=== PATIENT | female | born 1965 | race Caucasian/White ===

== ENCOUNTER → 2020-07-08 13:46 | Outpatient (BNVA) | payer OTHER, SELFPAY | PROVIDERS: PCP Internal Medicine; Referring Provider Internal Medicine; Visit Provider Internal Medicine | DX: R00.2 Palpitations (principal); I49.3 Ventricular premature depolarization | CPT/HCPCS: 99202 ==

== ENCOUNTER → 2020-07-10 09:19 | Outpatient (REF) | payer OTHER, SELFPAY ==
--- NOTE | 2020-07-10 09:40 | ECG_ITS ---
Hook-up date: 2020-07-10 10:44:00 Duration: 27:16:00 Test Indications: VENT. PREMATURE DEPOLARIZATION Medications: 99364 QRS complexes * Ventricular ectopics which represent % of total QRS comp. 1 Supraventricular ectopics which represent <1 % of total QRS comp. * Paced QRS complexs which represent % of total QRS comp. VENTRICULAR ECTOPY * Isolated * Bigeminal Cycles * Couplets * Runs * Beats in Runs * Beats LONGEST at * BPM at :: -- * Beats FASTEST at * BPM at :: -- SUPRAVENTRICULAR ECTOPY 1 Isolated 0 Couplets 0 Runs 0 Beats in Runs * Beats LONGEST at * BPM at :: -- * Beats FASTEST at * BPM at :: -- HEART RATES 59 MIN at 03:16:46 2020-07-11 86 AVG 133 MAX at 11:10:07 2020-07-10 LONGEST RR 1.0800 secs at 02:33:26 2020-07-11 S-T LEVELS Channel 1 - 128 mm at 10:44:00 2020-07-10 - 128 mm at 10:44:00 2020-07-10 Channel 2 - 128 mm at 10:44:00 2020-07-10 - 128 mm at 10:44:00 2020-07-10 Channel 3 - 128 mm at 03:00:31 -- - 128 mm at 03:00:31 Basic rhythm Normal sinus rhythm No long pause or profound bradycardia No PVCs noted Patient reported symptoms correlated with NSR Referred By: Luigi Waite Overread By: PIERO LU MD
--- NOTE | 2020-07-10 09:40 | CA_ITS ---
Transthoracic Echocardiogram Patient (Last, First, Middle): Katia Snow M Gender: Female Date of : 1965 Age: 54 Procedure Date: 07/10/2020 Procedure Type: Transthoracic Echocardiogram Location: OP Height: 154.94 cm Weight: 62.6 kg BSA: 1.61 m2 Heart Rate: bpm BP: 118 / 60 mmHg Business Services Tech: Referring MD: Luigi Waite MD Symptoms: R00.2 - Palpitations Study Quality: Fair ECG Rhythm: Sinus Conclusions: - The left ventricular systolic function is normal. The visually estimated ejection fraction is between 55-60%. - No obvious valvular pathology seen on this study. Findings Left Ventricle Normal left ventricular cavity size. There is normal left ventricular wall thickness. The left ventricular systolic function is normal. The visually estimated ejection fraction is between 55-60%. There is no evidence of regional wall motion abnormalities. E/E prime ratio is <8, consistent with normal filling pressures. Evidence suggests grade I (mild) diastolic dysfunction. Right Ventricle Normal right ventricular cavity size and systolic function. Atria The left atrium is normal in size. The right atrium is normal in size. Aortic Valve The aortic valve was not well visualized. The aortic valve structure and function is likely normal. There is no aortic valve stenosis. There is trace (trivial) aortic valve regurgitation. Mitral Valve The mitral valve appears normal. There is trace mitral valve regurgitation. There is no mitral valve stenosis. Pulmonic Valve The pulmonic valve was not well visualized. Tricuspid Valve Normal tricuspid valve structure. There is trace tricuspid valve regurgitation. The pulmonary artery systolic pressure is normal. Great Vessels The aortic annulus, sinuses of valsalva, and asc aorta are normal in size. Venous The inferior vena cava is normal in size and collapses greater than 50% with inspiration. Pericardium/Pleural There is no evidence of pericardial effusion. Prior Study Comparison No prior study available for comparison. Recommendations, Care & Conclusions No obvious valvular pathology seen on this study. Measurements 2D Linear Measurements IVSd: 0.92 0.6-0.9/0.6-1.0 cm LVIDd: 3.83 3.9-5.3/4.2-5.9 cm LVIDd Index: 2.38 2.4-3.2/2.2-3.1 cm/m2 LVIDs: 2.66 2.0-3.6 cm LVPWd: 0.97 0.7-1.1 cm Ao Root: 3.00 2.1-3.5 cm LA Diam: 2.80 2.7-3.8/3.0-4.0 cm LAIDs Index: 1.74 1.5-2.3 cm/m2 LV Mass: 136.00 67-162/88-224 g LV Mass Index: 84.47 43-95/49-115 g/m2 LVOT Diam: 2.20 3.0+(-)1.3 cm Mitral Valve MV Pk E: 0.51 MV PK A: 0.75 MV Decel Time: 106.00 E/A: 0.70 E'Lateral: 9.09 E'Medial: 7.54 E/E' Med: 6.80 E/E' Lat: 5.60 PHT: 31.00 MVA PHT: 7.10 Decel Bowie: 4.82 Aortic Valve AoV Pk Jimi: 1.00 AoV Mn Jimi: 0.71 AoV VTI: 0.20 AoV Pk Grad: 4.00 Aov Mn Grad: 2.00 DOROTHY Cont.VTI: 3.17 LVOT LVOT Pk Jimi: 0.78 LVOT Mn Jimi: 0.53 LVOT VTI: 0.17 LVOT Pk Grad: 2.00 LVOT Mn Grad: 1.00 LVOT Diam: 2.20 LVOT Area: 3.80 Diastolic Function MV Pk E: 0.51 MV Pk A: 0.75 E/A: 0.70 E'Medial: 7.54 E/E' Med: 6.80 E' Laterial: 9.09 E/E' Lat: 5.60 Tricuspid Valve TR Pk Jimi: 1.61 TR Pk Grad: 10.00 Great Vessels Aorta Ao Root-2D: 3.00 2.0-3.7 cm Ao Asc: 3.20 2.1-3.4 cm Pulmonary Valve PV Pk Jimi: 0.71 Peak PV Grad: 2.00 Updated in Other Vendor System with Status of Final Luigi Waite MD electronically signed on 07/12/2020 1:01:14 PM with status of Final
== END ==
LOC: HO.CARD 09:19
PROVIDERS: Visit Provider Nurse Practitioner Family
DX: I49.3 Ventricular premature depolarization (principal); R00.2 Palpitations
CPT/HCPCS: 93226; 93306

== ENCOUNTER 2020-08-12 11:13 | Outpatient (REF) | payer OTHER, SELFPAY | END 2020-08-12 11:14 | disposition home or self-care (01) | LOC: HO.LAB 11:13 | PROVIDERS: Visit Provider Hospitalist | DX: Z13.89 Encounter for screening for other disorder (principal) ==

== ENCOUNTER 2020-08-19 09:27 | Outpatient (REF) | payer OTHER, SELFPAY | END 2020-08-19 09:28 | disposition home or self-care (01) | LOC: HO.HMGCLDS 09:27 | PROVIDERS: PCP Internal Medicine; Visit Provider Hospitalist | DX: Z20.828 Contact with and (suspected) exposure to other viral communicable diseases (principal) | CPT/HCPCS: U0003 ==

== ENCOUNTER 2020-12-27 11:01 | Outpatient (REF) | payer OTHER, SELFPAY ==
[2020-12-27 14:39] LABS: Alanine Aminotransferase 14 U/L (0-31); Albumin Level 4.3 g/dL (3.5-5.0); Alkaline Phosphatase 91 U/L (39-117); Anion Gap 14 (12-20); Aspartate Amino Transferase 16 U/L (5-31); Bilirubin Total 1.3 mg/dL (0.0-1.0); Blood Urea Nitrogen 21 mg/dL (9-16); Carbon Dioxide 25 mmol/L (22-29); Chloride 108 mmol/L (96-108); Estimated Glomerular Filt Rate > 60; Glucose Random 97 mg/dL (60-115); Potassium 4.2 mmol/L (3.3-5.1); Sodium 143 mmol/L (135-145); Total Protein 6.6 g/dL (6.5-8.0)
== END 2020-12-27 11:02 | disposition home or self-care (01) ==
LOC: HO.HMGCLDS 11:01
PROVIDERS: Hospitalist; PCP Internal Medicine; Visit Provider Internal Medicine
DX: R00.2 Palpitations (principal)
CPT/HCPCS: 36415; 80053; 83735

== ENCOUNTER → 2020-12-30 08:51 | Outpatient (BNVA) | payer OTHER, SELFPAY | PROVIDERS: PCP Internal Medicine; Referring Provider Internal Medicine; Visit Provider Internal Medicine | DX: I49.3 Ventricular premature depolarization (principal); R00.2 Palpitations | CPT/HCPCS: 99212 ==

== ENCOUNTER → 2021-02-12 11:07 | Outpatient (BNVA) | payer OTHER, SELFPAY | PROVIDERS: PCP Internal Medicine; Referring Provider Internal Medicine; Visit Provider Internal Medicine | DX: I49.3 Ventricular premature depolarization (principal); E87.6 Hypokalemia; R00.2 Palpitations | CPT/HCPCS: 99212 ==

== ENCOUNTER → 2021-07-21 12:54 | Outpatient (BNVA) | payer OTHER, SELFPAY | PROVIDERS: PCP Internal Medicine; Referring Provider Internal Medicine; Visit Provider Internal Medicine | DX: I49.3 Ventricular premature depolarization (principal); R00.2 Palpitations | CPT/HCPCS: 99212 ==

== ENCOUNTER 2021-09-09 09:17 | Outpatient (REF) | payer OTHER, SELFPAY ==
[2021-09-09 09:39] LABS: Binax Internal Control QC Valid; Binax Now Covid-19 Ag Positive (Negative)
== END 2021-09-09 09:18 | disposition home or self-care (01) ==
LOC: HO.HMGCLDS 09:17
PROVIDERS: PCP Internal Medicine; Visit Provider Internal Medicine
DX: Z13.89 Encounter for screening for other disorder (principal)

== ENCOUNTER 2022-05-20 10:23 | Emergency (ER) | payer OTHER, SELFPAY ==
--- NOTE | ~2022-05-20 | XR_ITS ---
EXAMINATION: XR CHEST CLINICAL INFORMATION: Chest pain. COMPARISON: None TECHNIQUE: 2 views of the chest were obtained. FINDINGS: No significant abnormality is noted involving the heart, lungs, mediastinum, bony thorax or soft tissues. XR/XR chest 2V IMPRESSION: No acute cardiopulmonary process.
[2022-05-20 11:40] VITALS: BP 131/83; PULSE 90; RESP 18; TEMP 36.1; O2SAT 100; BMI 25.4
--- NOTE | 2022-05-20 11:42 | ECG_ITS ---
Test Reason : chest tightness Blood Pressure : / mmHG Vent. Rate : 086 BPM Atrial Rate : 086 BPM P-R Int : 162 ms QRS Dur : 084 ms QT Int : 350 ms P-R-T Axes : 066 033 022 degrees QTc Int : 418 ms Normal sinus rhythm Low voltage QRS Borderline ECG No previous ECGs available Referred By: Generic ED Physician Electronically Signed By:TAO MENDEZ
[2022-05-20 12:01] LABS: MANUAL DIFF FLAG NO
[2022-05-20 12:03] LABS: Basophils Percent Auto 0.4 % (0-2); Eosinophils Absolute Auto 0.1 X10*3/uL (0.0-0.4); Eosinophils Percent Auto 0.6 % (0-4); Hematocrit 45.3 % (37.0-47.0); Hemoglobin 15.3 g/dl (12.0-16.0); Imm Gran Abs Auto 0.01 X10*3/uL (0.00-0.03); Imm Gran Pct Auto 0.1 % (0.0-0.4); Lymphocytes Absolute Auto 1.9 X10*3/uL (1.2-4.9); Lymphocytes Percent Auto 24.1 % (20-40); Mean Corpuscular HGB Conc 33.8 g/dl (31.0-35.0); Mean Corpuscular Hemoglobin 28.8 pg (27.0-33.0); Mean Corpuscular Volume 85.3 fL (80.0-98.0); Mean Platelet Volume 9.8 fL (9.4-12.3); Monocytes Absolute Auto 0.4 X10*3/uL (0.1-1.2); Monocytes Percent Auto 4.4 % (2-11); Neutrophils Absolute Auto 5.6 x10*3/uL (2.0-8.3); Neutrophils Percent Auto 70.4 % (45-73); Platelet Count 174 X10*3/uL (160-400); Red Blood Count 5.31 X10*6/uL (4.20-5.50); Red Cell Distribution Width 11.9 % (11.0-16.0); White Blood Count 7.9 X10*3/uL (4.8-10.8)
[2022-05-20 12:22] LABS: Anion Gap 15 (12-20); Blood Urea Nitrogen 16 mg/dL (9-16); Calcium 9.6 mg/dL (8.4-10.2); Carbon Dioxide 27 mmol/L (22-29); Chloride 106 mmol/L (96-108); Creatinine Clr Calc Pharmacy 65.1; Estimated Glomerular Filt Rate > 60; Glucose Random 105 mg/dL (60-115); Potassium 4.9 mmol/L (3.3-5.1); Sodium 143 mmol/L (135-145)
[2022-05-20 12:29] LABS: Troponin-I High Sensitivity < 3.5 ng/L (<3.5-17.0)
== END 2022-05-20 23:09 | disposition left against medical advice (07) ==
PROVIDERS: Emergency Provider Emergency Medicine; PCP Internal Medicine
DX: R07.89 Other chest pain (principal)
CPT/HCPCS: 36415; 71046; 80048; 84484; 85025; 93005; 99283

== ENCOUNTER 2022-06-10 11:19 | Outpatient (REF) | payer OTHER, SELFPAY ==
[2022-06-10 13:51] LABS: MANUAL DIFF FLAG NO
[2022-06-10 13:55] LABS: Basophils Percent Auto 0.4 % (0-2); Eosinophils Percent Auto 0.4 % (0-4); Hematocrit 45.9 % (37.0-47.0); Hemoglobin 15.4 g/dl (12.0-16.0); Imm Gran Abs Auto 0.02 X10*3/uL (0.00-0.03); Imm Gran Pct Auto 0.2 % (0.0-0.4); Lymphocytes Percent Auto 23.7 % (20-40); Mean Corpuscular HGB Conc 33.6 g/dl (31.0-35.0); Mean Corpuscular Hemoglobin 28.2 pg (27.0-33.0); Mean Corpuscular Volume 84.1 fL (80.0-98.0); Mean Platelet Volume 10.5 fL (9.4-12.3); Monocytes Absolute Auto 0.4 X10*3/uL (0.1-1.2); Monocytes Percent Auto 4.3 % (2-11); Neutrophils Absolute Auto 6.1 x10*3/uL (2.0-8.3); Platelet Count 214 X10*3/uL (160-400); Red Blood Count 5.46 X10*6/uL (4.20-5.50); Red Cell Distribution Width 11.9 % (11.0-16.0); White Blood Count 8.6 X10*3/uL (4.8-10.8)
[2022-06-10 14:13] LABS: Anion Gap 14 (12-20); Blood Urea Nitrogen 16 mg/dL (9-16); Calcium 9.6 mg/dL (8.4-10.2); Carbon Dioxide 26 mmol/L (22-29); Chloride 106 mmol/L (96-108); Estimated Glomerular Filt Rate > 60; Glucose Random 107 mg/dL (60-115); Potassium 4.5 mmol/L (3.3-5.1); Sodium 141 mmol/L (135-145)
== END 2022-06-10 11:20 | disposition home or self-care (01) ==
LOC: HO.HMGCLDS 11:19
PROVIDERS: PCP Internal Medicine; Visit Provider Nurse Practitioner Family
DX: R25.1 Tremor, unspecified (principal)
CPT/HCPCS: 36415; 80048; 85025

== ENCOUNTER 2022-07-25 09:03 | Emergency (ER) | payer OTHER, SELFPAY ==
[2022-07-25 09:10] VITALS: BP 124/73; BP 128/88; PULSE 100; PULSE 102; RESP 18; TEMP 36.5; O2SAT 99; BMI 25.4
--- NOTE | 2022-07-25 10:49 | ECG_ITS ---
Test Reason : DEPRESSION Blood Pressure : / mmHG Vent. Rate : 086 BPM Atrial Rate : 086 BPM P-R Int : 160 ms QRS Dur : 084 ms QT Int : 346 ms P-R-T Axes : 067 010 013 degrees QTc Int : 414 ms Normal sinus rhythm Low voltage QRS Borderline ECG When compared with ECG of 20-MAY-2022 11:47, No significant change was found Referred By: Lenore Levine Electronically Signed By:Aram Gonzales
--- NOTE | 2022-07-25 10:50 | ED_ITS ---
HPI - General Adult General Chief complaint: General Medical Stated complaint: Anxiety/Depression Time Seen by Provider: 07/25/22 10:49 Source: patient and old records reviewed Mode of arrival: ambulatory Limitations: no limitations History of Present Illness HPI narrative: 56-year-old female with history panic attacks and anxiety, heart palpitations due to PVCs, who is not able to work due to severe anxiety and panic attacks, currently on FMLA until September who presents to the ER for ongoing stress and anxiety now with decreased p.o. intake and generalized weakness. She was last seen in the clinic on July 10, her FMLA per paperwork was filled out and plan was to try to get in with a psychiatrist. She has recent prescribed p.r.n. lorazepam but reports negative side effects. She states she has been tried on other medications but has had negative side effects as well. She has made multiple dietary modifications due to food allergies and intolerance is. She has been eating eggs and toast every morning and doing well with lunch and dinner as well. She is worse after eating lunch today she took a shower and afterwards felt generally weak and increased anxiety. She had tremors. She came to the ER for further evaluation. MD complaint: Anxiety, depression, weakness and decreased p.o. intake Onset (ago): week(s) Location: left, right, upper extremity and lower extremity Severity: moderate Pain Consistency: intermittent Relieving factors: none Exacerbating factors: movement Associated symptoms: loss of appetite, weakness and other (tremors, anxiety) Treatments prior to arrival: none Related Data Previous Rx's Medication Instructions Recorded aluminum-mag hydroxide-simethicone 10 ml PO TID PRN indigestion 7 06/15/22 400 mg-400 mg-40 mg/5 mL oral susp days #100 mL (Mylanta Maximum Strength) lorazepam 0.5 mg tablet 0.25 mg PO DAILY PRN anxiety 14 06/15/22 days #7 tabs Allergies Allergy/AdvReac Type Severity Reaction Status Date / Time codeine AdvReac Intermediate Nausea/Vomi Verified 07/25/22 09:09 ting prednisone AdvReac Intermediate diarrhea, Verified 07/25/22 09:09 ROTH bisquit Allergy Unknown sneeze Uncoded 07/10/22 14:59 mold Allergy Unknown unknown Uncoded 07/10/22 14:59 yeast Allergy Unknown unknown Uncoded 07/10/22 14:59 COUNTS INCLUDE 234 BEDS AT THE [facility] Past Medical History Medical History Allergies Foot pain, bilateral Sensorineural hearing loss Surgical History No pertinent past surgical history Family History Family History Father No problems noted. Mother No problems noted. Social History Social History Housing: Apartment Alcohol intake: never Patient Tobacco Use Status: Never used Tobacco e-Cigarette/Vaping Use: Never Used Second Hand Smoke Exposure: No Advance Directives: No Current occupational status: employed Cognitive needs: No Hearing needs: Yes Vision needs: Yes Physical Exam ED Vital Signs: Vital Signs - 24 hr 07/25/22 09:10 07/25/22 12:24 07/25/22 15:15 Temperature 97.7 F 97.9 F 98.9 F Pulse Rate 100 91 67 Respiratory Rate 18 18 17 Blood Pressure 124/73 107/62 109/87 Pulse Oximetry 99 100 99 Oxygen Delivery Method Room Air Room Air Room Air BMI result Body Mass Index 25.4 Appearance: Alert. Oriented X3. No acute distress. Eyes: Pupils equal, round and reactive to light. ENT: Pharynx normal. Neck: Normal inspection. Neck supple. CVS: Normal heart rate and rhythm. Pulses normal. Respiratory: No respiratory distress. Breath sounds normal. Abdomen: Soft and nontender. +BS x4 Skin: Skin warm and dry. Normal skin color. Normal skin turgor. No rashes. Extremities: No lower extremity edema. Neuro/psych: Oriented X 3. No motor deficit. No sensory deficit. CN II-XII intact. Makes eye contact, fixated on dietary ingestions. Intermittently tearf ul and anxious. Course Course Course Narrative: 56-year-old female with history of panic attacks and anxiety, multiple food allergies and intolerance is who presents to the ER for evaluation of worsening anxiety. Today after showering she felt generally weak and had tremors. She lost her appetite. Prior to today she has been eating 3 meals a day. She has an appointment with the psychiatrist on Wednesday for via phone. Will check her basic labs and have her evaluated by the care team/crisis team. she is not suicidal or homicidal however she reports her anxiety is debilitating her day-to-day life and she is not able to go to work or do day-to-day functions. Reevaluation(s) Reevaluation #1: Basic medical workup was unremarkable. Will place patient in physician observation at this time. Physician observation started at 12:30. Patient placed in physician observation because patient is awaiting N/CARE team evaluation for the possible need of inpatient psych admission. At the time observation was started patient's vital signs were stable. Patient is alert and oriented. Neuro exam is non-focal. CV: RRR and lungs are clear. Will continue to monitor. Reevaluation #2: Pt seen by CARE team. Not in crisis. Not interested in partial. Has an appointment with her psychiatrist on Wednesday. Comfortable with d/c home. Medical Decision Making Lab Data Result diagrams: 07/25/22 11:44 07/25/22 11:45 Labs: Lab Results 07/25/22 07/25/22 07/25/22 Range/Units 11:44 11:45 11:45 WBC 8.8 (4.8-10.8) X10*3/uL RBC 5.09 (4.20-5.50) X10*6/uL Hgb 14.7 (12.0-16.0) g/dl Hct 42.7 (37.0-47.0) % MCV 83.9 (80.0-98.0) fL MCH 28.9 (27.0-33.0) pg MCHC 34.4 (31.0-35.0) g/dl RDW 12.0 (11.0-16.0) % Plt Count 194 (160-400) X10*3/uL MPV 9.9 (9.4-12.3) fL Immature Gran % (Auto) 0.2 (0.0-0.4) % Neut % (Auto) 72.3 (45-73) % Lymph % (Auto) 21.7 (20-40) % Woods % (Auto) 5.2 (2-11) % Eos % (Auto) 0.3 (0-4) % Baso % (Auto) 0.3 (0-2) % Lymph # (Auto) 1.9 (1.2-4.9) X10*3/uL Woods # (Auto) 0.5 (0.1-1.2) X10*3/uL Eos # (Auto) 0.0 (0.0-0.4) X10*3/uL Baso # (Auto) 0.0 (0.0-0.2) X10*3/uL Abs Immat Gran (auto) 0.02 (0.00-0.03) X10*3/uL Absolute Neuts (auto) 6.3 (2.0-8.3) x10*3/uL Absolute Nucleated RBC 0.000 (0.0-0.012) X10*3/uL Nucleated RBC % (auto) 0.0 (0.0-0.2) /100WBC Sodium 137 (135-145) mmol/L Potassium 4.1 (3.3-5.1) mmol/L Chloride 106 (96-108) mmol/L Carbon Dioxide 26 (22-29) mmol/L Anion Gap 9 L (12-20) BUN 18 H (9-16) mg/dL Creatinine 0.75 (0.5-1.4) mg/dL Estim Creat Clear Calc 68.6 Estimated GFR > 60 Random Glucose 94 (60-115) mg/dL Calcium 9.1 (8.4-10.2) mg/dL Magnesium 2.1 (1.6-2.6) mg/dL Total Bilirubin 1.1 H (0.0-1.0) mg/dL Direct Bilirubin 0.3 (0.0-0.5) mg/dL AST 12 (5-31) U/L ALT 12 (0-31) U/L Alkaline Phosphatase 86 (39-117) U/L Total Protein 6.0 L (6.5-8.0) g/dL Albumin 4.0 (3.5-5.0) g/dL Ethyl Alcohol < 10 mg/dL COVID-19 (ARMANI) (Negative) COVID-19 Clin Com Influenza Type A (GERALD) Negative (Negative) Influenza Type B (GERALD) Negative (Negative) Influenza A & B Note See Note 07/25/22 Range/Units 11:45 WBC (4.8-10.8) X10*3/uL RBC (4.20-5.50) X10*6/uL Hgb (12.0-16.0) g/dl Hct (37.0-47.0) % MCV (80.0-98.0) fL MCH (27.0-33.0) pg MCHC (31.0-35.0) g/dl RDW (11.0-16.0) % Plt Count (160-400) X10*3/uL MPV (9.4-12.3) fL Immature Gran % (Auto) (0.0-0.4) % Neut % (Auto) (45-73) % Lymph % (Auto) (20-40) % Woods % (Auto) (2-11) % Eos % (Auto) (0-4) % Baso % (Auto) (0-2) % Lymph # (Auto) (1.2-4.9) X10*3/uL Woods # (Auto) (0.1-1.2) X10*3/uL Eos # (Auto) (0.0-0.4) X10*3/uL Baso # (Auto) (0.0-0.2) X10*3/uL Abs Immat Gran (auto) (0.00-0.03) X10*3/uL Absolute Neuts (auto) (2.0-8.3) x10*3/uL Absolute Nucleated RBC (0.0-0.012) X10*3/uL Nucleated RBC % (auto) (0.0-0.2) /100WBC Sodium (135-145) mmol/L Potassium (3.3-5.1) mmol/L Chloride (96-108) mmol/L Carbon Dioxide (22-29) mmol/L Anion Gap (12-20) BUN (9-16) mg/dL Creatinine (0.5-1.4) mg/dL Estim Creat Clear Calc Estimated GFR Random Glucose (60-115) mg/dL Calcium (8.4-10.2) mg/dL Magnesium (1.6-2.6) mg/dL Total Bilirubin (0.0-1.0) mg/dL Direct Bilirubin (0.0-0.5) mg/dL AST (5-31) U/L ALT (0-31) U/L Alkaline Phosphatase (39-117) U/L Total Protein (6.5-8.0) g/dL Albumin (3.5-5.0) g/dL Ethyl Alcohol mg/dL COVID-19 (ARMANI) Negative (Negative) COVID-19 Clin Com See Note Influenza Type A (GERALD) (Negative) Influenza Type B (GERALD) (Negative) Influenza A & B Note Discharge Plan Discharge Clinical Impression: Anxiety, generalized Patient Disposition: Still a Patient Instructions: Generalized Anxiety Disorder (ED) Additional Instructions: Your lab workup today was unremarkable. You tested negative for COVID and influenza. Recommend following up with your psychiatrist on Wednesday as scheduled. If you develop new or worsening symptoms call 911 or come back to the ER for further evaluation. Prescriptions: No Action alum-mag hydroxide-simeth [Mylanta Maximum Strength] 400-400-40 mg/5 mL suspension 10 ml PO TID PRN (Reason: indigestion) 7 Days Qty: 100 0RF lorazepam 0.5 mg tablet 0.25 mg PO DAILY PRN (Reason: anxiety) 14 Days Qty: 7 0RF
--- OUTSIDE RECORDS SUMMARY | 2022-07-25 11:02 | XMS_ITS | Continuity of Care Document ---
:1965 Author Organization [facility] Address [address] [place] [address]- Care Team Providers Name Role Phone Not on Staff, PCP Primary Care Physician Unavailable Encounter [facility] Date(s): 06/25/22 - 06/25/[address] [address]- Discharge Disposition: A-D/C Home Attending Physician: Izzy Lorenzana MD Admitting Physician: Izzy Lorenzana MD Referring Physician: Not on Staff, Referring MD Allergies, Adverse Reactions, Alerts Substance Reaction Severity Status codeine Active Results Radiology Reports Exam Date Time Procedure Performing Provider Status 06/25/22 8:30 AM Chest 2 Views Frontal and Lat Tiana Flowers; Auth (Verified) Notes:(Chest 2 Views Frontal and Lat) Reason For Exam: Chest Pain;Other:RESULT: Chest 2 Views Frontal and Lat Chest 2 Views Frontal and Lat HX OF PRESENT ILLNESS: pt awoke at 4 am with heart racing and sob. Chronic left sided cp alleviated with ibuprofen and ice; Reason: Chest pain COMPARISON: None. FINDINGS: LINES AND TUBES: None. LUNGS AND PLEURA: Clear lungs. Normal pulmonary vascularity. No pleural effusion. No pneumothorax. HEART, MEDIASTINUM AND LUCIUS: Heart is normal in size. Normal mediastinal and hilar contour. BONES AND SOFT TISSUES: No acute abnormality. IMPRESSION: No evidence of acute abnormality. WSN: [id number] Ordering Physician: Dejon Acosta Dictated By: Dominick Monroe MD Dictated Date/Time: 06/25/22 8:32 am Reviewed By: Dominick Monroe MD Signed By: Dominick Monroe MD Signed Date/Time: 06/25/22 8:32 am Transcribed By: ANA Transcribed Date/Time: 06/25/22 8:31 am Vital Signs Most recent to oldest 1 2 3 [Reference Range]: Oxygen Saturation [94-100 %] 100 % 99 % 100 % (06/25/22 2:13 PM) (06/25/22 12:43 PM) (06/25/22 11 :00 AM) Pulse Rate [55-90 bpm] 88 bpm 89 bpm 85 bpm (06/25/22 2:13 PM) (06/25/22 12:43 PM) (06/25/22 11 :00 AM) Blood Pressure [90-138/55-84 115/78 mm Hg 113/87 mm Hg 112 /83 mm Hg mm Hg] (06/25/22 2:13 PM) (06/25/22 12:43 PM) (06/25/22 11 :00 AM) Respiratory Rate [16-30 14 br/min 16 br/min 14 br/mi n br/min] *L* (06/25/22 12:43 PM) *L* (06/25/22 2:13 PM) (06/25/22 11:00 AM) Temperature [96.8-100.4 DegF] 98.0 DegF 97.8 DegF 98 .1 DegF (06/25/22 2:13 PM) (06/25/22 12:43 PM) (06/25/22 7: 50 AM) Mode of Delivery (Oxygen) Room air Room air Room a ir (06/25/22 2:13 PM) (06/25/22 12:43 PM) (06/25/22 11 :00 AM) Blood pressure sites Arm, left Arm, left Arm, left (06/25/22 2:13 PM) (06/25/22 12:43 PM) (06/25/22 11 :00 AM) Temperature Route Oral Oral Oral (06/25/22 2:13 PM) (06/25/22 12:43 PM) (06/25/22 7: 50 AM) Social History Social History Type Response Smoking Status Never (less than 100 in life time) entered on: 01/07/22 Sex Note [facility] , CIS S: TRANSCRIBE Dominick Monroe MD S: VERIFY Event Display: Result: Authored Date: [id number] Chest 2 Views Frontal and Lat HX OF PRESENT ILLNESS: pt awoke at 4 am with heart racing and sob. Chronic left sided cp alleviated with ibuprofen and ice; Reason: Chest pain COMPARISON: None. FINDINGS: LINES AND TUBES: None. LUNGS AND PLEURA: Clear lungs. Normal pulmonary vascularity. No pleural effusion. No pneumothorax. HEART, MEDIASTINUM AND LUCIUS: Heart is normal in size. Normal mediastinal and hilar contour. BONES AND SOFT TISSUES: No acute abnormality. IMPRESSION: No evidence of acute abnormality. WSN: [id number] Ordering Physician: Dejon Acosta Dictated By: Dominick Monroe MD Dictated Date/Time: 06/25/22 8:32 am Reviewed By: Dominick Monroe MD Signed By: Dominick Monroe MD Signed Date/Time: 06/25/22 8:32 am Transcribed By: ANA Transcribed Date/Time: 06/25/22 8:31 am Patient Care team information PersonnelName: Not on Staff, PCP
--- OUTSIDE RECORDS SUMMARY | 2022-07-25 11:02 | XMS_ITS | Continuity of Care Document ---
:1965 Author Organization [facility] Address [address] [place] [address]- Care Team Providers Name Role Phone Marcial Gimenez MD Primary Care Physician Encounter [facility] Date(s): 01/07/22 - 01/07/[address] [address]- Discharge Disposition: A-D/C Home Attending Physician: Yemi Stephenson MD Admitting Physician: Yemi Stephenson MD Referring Physician: Not on Staff, Referring MD Allergies, Adverse Reactions, Alerts Substance Reaction Severity Status codeine Active Vital Signs Most recent to oldest [Reference Range]: 1 Height 155 cm (01/07/22 12:50 PM) Weight 62.3 kg (01/07/22 12:50 PM) Oxygen Saturation [94-100 %] 100 % (01/07/22 12:50 PM) Pulse Rate [55-90 bpm] 98 bpm *H* (01/07/22 12:50 PM) Blood Pressure [90-138/55-84 mm Hg] 123/84 mm Hg (01/07/22 12:50 PM) Respiratory Rate [16-30 br/min] 18 br/min (01/07/22 12:50 PM) Temperature [96.8-100.4 DegF] 98.2 DegF (01/07/22 12:50 PM) Mode of Delivery (Oxygen) Room air (01/07/22 12:50 PM) Temperature Route Temporal (01/07/22 12:50 PM) Dry Weight 62.3 kg (01/07/22 12:50 PM) Weight Obtained Via Standing scale (01/07/22 12:50 PM) Dry Weight Obtained Via Standing scale (01/07/22 12:50 PM) Social History Social History Type Response Smoking Status Never (less than 100 in life time) entered on: 01/07/22 Sex
[2022-07-25 11:49] LABS: MANUAL DIFF FLAG NO
[2022-07-25 11:51] LABS: Basophils Percent Auto 0.3 % (0-2); Eosinophils Percent Auto 0.3 % (0-4); Hematocrit 42.7 % (37.0-47.0); Hemoglobin 14.7 g/dl (12.0-16.0); Imm Gran Abs Auto 0.02 X10*3/uL (0.00-0.03); Imm Gran Pct Auto 0.2 % (0.0-0.4); Lymphocytes Absolute Auto 1.9 X10*3/uL (1.2-4.9); Lymphocytes Percent Auto 21.7 % (20-40); Mean Corpuscular HGB Conc 34.4 g/dl (31.0-35.0); Mean Corpuscular Hemoglobin 28.9 pg (27.0-33.0); Mean Corpuscular Volume 83.9 fL (80.0-98.0); Mean Platelet Volume 9.9 fL (9.4-12.3); Monocytes Absolute Auto 0.5 X10*3/uL (0.1-1.2); Monocytes Percent Auto 5.2 % (2-11); Neutrophils Absolute Auto 6.3 x10*3/uL (2.0-8.3); Neutrophils Percent Auto 72.3 % (45-73); Platelet Count 194 X10*3/uL (160-400); Red Blood Count 5.09 X10*6/uL (4.20-5.50); White Blood Count 8.8 X10*3/uL (4.8-10.8)
[2022-07-25 12:03] LABS: COVID-19 Test Negative (Negative); IDNOW Serial# BCCEAD1C
[2022-07-25 12:05] LABS: IDNOW Serial# 9DB6401D; Influenza A Negative (Negative); Influenza B2 Negative (Negative)
[2022-07-25 12:22] LABS: Alanine Aminotransferase 12 U/L (0-31); Alkaline Phosphatase 86 U/L (39-117); Anion Gap 9 (12-20); Aspartate Amino Transferase 12 U/L (5-31); Bilirubin Direct 0.3 mg/dL (0.0-0.5); Bilirubin Total 1.1 mg/dL (0.0-1.0); Blood Urea Nitrogen 18 mg/dL (9-16); Calcium 9.1 mg/dL (8.4-10.2); Carbon Dioxide 26 mmol/L (22-29); Chloride 106 mmol/L (96-108); Creatinine Clr Calc Pharmacy 68.6; Estimated Glomerular Filt Rate > 60; Ethanol < 10 mg/dL; Glucose Random 94 mg/dL (60-115); Magnesium 2.1 mg/dL (1.6-2.6); Potassium 4.1 mmol/L (3.3-5.1); Sodium 137 mmol/L (135-145)
[2022-07-25 12:24] VITALS: BP 107/62; PULSE 91; RESP 18; TEMP 36.6; O2SAT 100
--- NOTE | 2022-07-25 13:26 | PC.NURSE ---
smart sheet sent over to [facility]
[2022-07-25 15:15] VITALS: BP 109/87; PULSE 67; RESP 17; TEMP 37.2; O2SAT 99
--- NOTE | 2022-07-25 15:22 | PC.NURSE ---
Pt resting comfortably on stretcher at this time. Awaiting care team/bhn consult. Pt reports no SI/HI, no pain and offers no other complaints at this time
--- NOTE | 2022-07-25 15:37 | MHC.CARE ---
Care Team received a consult for anxiety. This contract writer met with pt in ED11. Pt was laying on hospital bed wearing hospital attire. Pt was alert and oriented x3. Pt denied SI/HI/AVH. Pt stated she met with her PCP due to having anxiety and panic attacks. Pt reported she is on FMLA until September 25, 2022. Pt reported her PCP prescribed her Lorazepam, however, the medication gives her palpitations. Pt stated she will stop taking the medication due to having a telephonic psychiatrist appointment on Wednesday at 9:40 am. Care Team discussed pt's plan with Lenore PATEL. Pt declined Partial Hospitalization referral and mentioned she would rather meet with her psychiatrist on Wednesday.
== END 2022-07-25 16:10 | disposition still patient (30) ==
PROVIDERS: Physician Assistant; Emergency Provider Emergency Medicine; PCP Internal Medicine
DX: F41.1 Generalized anxiety disorder (principal); F32.A Depression, unspecified; R53.1 Weakness; Z79.899 Other long term (current) drug therapy; Z20.822 Contact with and (suspected) exposure to COVID-19
CPT/HCPCS: 80048; 80076; 82077; 83735; 85025; 87502; 87635; 93005; 99284

== ENCOUNTER 2022-10-19 13:30 | Outpatient (REF) | payer OTHER, SELFPAY ==
--- NOTE | ~2022-10-19 | MM_ITS ---
EXAMINATION: MM SCREENING DIGITAL BREAST TOMOSYNTHESIS, BILATERAL CLINICAL INFORMATION: Screening. Asymptomatic. The lifetime risk of breast cancer based on the Tyrer-Cuzick Model is 8.3%. COMPARISON: Mammography: None TECHNIQUE: Digital breast tomosynthesis is performed in both the craniocaudal and mediolateral oblique views along with computer-aided detection (CAD). Synthesized 2D images are generated from the tomosynthesis. FINDINGS: The breasts are heterogeneously dense, which may obscure small masses (ACR BI-RADS breast composition Category c). There are no significant masses, abnormal calcifications, or other abnormalities. MM/MM tomosynthesis screening BI IMPRESSION: No mammographic evidence of malignancy. ASSESSMENT: BI-RADS 1: Negative RECOMMENDATION: Routine annual mammography screening. This patient's information was entered into a reminder system with a target due date for their next mammogram.
== END 2022-10-19 13:31 | disposition home or self-care (01) ==
LOC: HO.MAMMO 13:30
PROVIDERS: PCP Internal Medicine; Visit Provider Internal Medicine
DX: Z12.31 Encounter for screening mammogram for malignant neoplasm of breast (principal)
CPT/HCPCS: 77063; 77067

== ENCOUNTER 2023-03-02 09:21 | Outpatient (AMB) | payer OTHER, SELFPAY ==
--- NOTE | 2023-03-02 09:25 | MHC.PC.OV ---
Vital Signs 03/02/23 09:26 Height 5 ft 1 in Weight 135 lb BMI 25.5 BP 118/74 Blood Pressure Location Rt brachial Position Sitting Pulse 94 Pulse Source Pulse Oximeter Pulse Oximetry (%) 98 Oxygen Delivery Method Room Air Intake Visit Reasons: hearing aid Allergies codeine Adverse Reaction (Intermediate, Verified 03/02/23 09:27) Nausea/Vomiting prednisone Adverse Reaction (Intermediate, Verified 03/02/23 09:27) diarrhea, ROTH bisquit Allergy (Unknown, Uncoded 03/02/23 09:27) sneeze mold Allergy (Unknown, Uncoded 03/02/23 09:27) unknown yeast Allergy (Unknown, Uncoded 03/02/23 09:27) unknown Medication List - Last Reconciled 03/02/23 by Joey Miller MD alprazolam (Xanax) 0.25 mg PO BID PRN ondansetron HCl 4 mg PO Q8H PRN 7 days Tobacco use date assessed: 09/18/22 HPI hearing aid HPI Details Patient is 57-year-old female came in today to be evaluated for hearing aid clearance Patient is currently wearing hearing aids she need stronger hearing aids There is no ear pain there is no ringing in the ear on exam her ears are clear Paperwork signed labs ordered August of this year still not done , reminded patient Anxiety: Patient is now seeing psychiatrist and is feeling much better walking twice a day she also modified her job duties. [facility] Medical History Allergies Foot pain, bilateral Sensorineural hearing loss Surgical History No pertinent past surgical history Family History Father No problems noted. Mother No problems noted. Social History Housing: Apartment Alcohol intake: never Patient Tobacco Use Status: Never used Tobacco e-Cigarette/Vaping Use: Never Used Second Hand Smoke Exposure: No service: No Current occupational status: employed Cognitive needs: No Hearing needs: Yes Vision needs: Yes Questionnaire Thrive Questionnaire Date Thrive assessed: 04/22/22 JAC-7 AMB Questionnaire JAC-7 Date JAC - 7 assessed: 04/22/22 Source: Developed by Drs. Edd Gates, Ashleigh Gaspar, Felipe Forbes and colleagues, with an educational zain from [employer]. Review of Systems Const Denies chills and Denies fever(s) ENT Denies epistaxis and Denies nasal discharge Card Denies chest pain Resp Denies chest congestion, Denies cough and Denies hemoptysis GI Denies diarrhea and Denies nausea Skin/Breast Denies rash Neuro Reports no additional complaints Psych Reports no additional complaints Endo Reports no additional complaints Physical exam (Primary Care) Vital Signs: Last Vital Signs Pulse 94 03/02/23 09:26 BP 118/74 03/02/23 09:26 Pulse Ox 98 03/02/23 09:26 Oxygen Delivery Method Room Air 03/02/23 09:26 BMI result Body Mass Index 25.5 Tobacco/Smoking Status: Tobacco use Status Tobacco use date assessed 09/18/22 03/02/23 09:28 Patient Tobacco Use Status Never used Tobacco 03/02/23 09:28 e-Cigarette/Vaping Use Never Used 03/02/23 09:28 Thrive Assessment: Date of Thrive Assessment Date Thrive assessed 04/22/22 03/02/23 09:28 Const General: cooperative, comfortable and no acute distress Orientation/consciousness: patient oriented x3 HENMT Other: Both ear canals clear, no signs of infection Head: Yes normocephalic Eyes General: appearance normal, both eyes and all related structures Neck Neck: Yes supple Resp Effort & Inspection: normal respiratory effort, no cough and no stridor Cardio Rhythm: regular rhythm Heart sounds: S1 normal heart sound present and S2 normal heart sound present Skin General skin exam: turgor normal Neuro General: patient oriented x3, tone normal and moves all extremities Extrem Right lower extremity: no edema Left lower extremity: no edema Assessment and Plan Assessment & Plan (1) Hearing impaired: Code(s): H91.90 - Unspecified hearing loss, unspecified ear Plan Patient is 57-year-old female came in today to be evaluated for hearing aid clearance Patient is currently wearing hearing aids she need stronger hearing aids There is no ear pain there is no ringing in the ear on exam her ears are clear Paperwork signed labs ordered August of this year still not done , reminded patient Anxiety: Patient is now seeing psychiatrist and is feeling much better walking twice a day she also modified her job duties. Coding Level of Care Code Est Pt Level 3 (21030) Diagnoses Hearing impaired H91.90
[2023-03-02 09:26] VITALS: BP 118/74; PULSE 94; O2SAT 98; BMI 25.5
== END 2023-03-02 10:25 | disposition home or self-care (01) ==
PROVIDERS: PCP Internal Medicine; Visit Provider Internal Medicine
DX: H91.90 Unspecified hearing loss, unspecified ear (principal)
CPT/HCPCS: 99213

== ENCOUNTER 2023-05-24 09:23 | Outpatient (AMB) | payer OTHER, SELFPAY ==
[2023-05-24 09:44] VITALS: BP 106/70; PULSE 96; TEMP 36.6; O2SAT 97; BMI 25.4
--- NOTE | 2023-05-24 09:44 | MHC.OFFWIV ---
Intake Vital Signs 05/24/23 09:44 Height 5 ft 1 in Weight 60.895 kg BMI 25.4 BP 106/70 Blood Pressure Location Lt brachial Position Sitting Pulse 96 Pulse Source Pulse Oximeter Temp 97.9 F Temp Source Temporal Artery Scan Pulse Oximetry (%) 97 Intake Visit Reasons: EP Heart Palpitations/Fatigue/Shaky Intake Note: Pt is here for c/o heart palpations, fatigue, patient states this has happened before due to stress an anxiety Patient Tobacco Use Status: Never used Tobacco Allergies codeine Adverse Reaction (Intermediate, Verified 05/24/23 09:46) Nausea/Vomiting prednisone Adverse Reaction (Intermediate, Verified 05/24/23 09:46) diarrhea, ROTH bisquit Allergy (Unknown, Uncoded 03/02/23 09:27) sneeze mold Allergy (Unknown, Uncoded 03/02/23 09:27) unknown yeast Allergy (Unknown, Uncoded 03/02/23 09:27) unknown Do you need a note to return to daycare/school/sports/work: Yes HPI HPI Comments History of Present Illness Details 1019 This is a 57-year-old female history of anxiety and depression, panic attack, stress at work, tremor, heart palpitations presenting to the clinic for evaluation of a few episodes of palpitations, anxiety for the past 3 days. Patient reports episodes last a few seconds, they are worse at night when she is just laying there. 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 Patient tells me she takes a pill for anxiety and this gets better. No chest pain, palpitations or shortness of breath at this time. During history taking she begins to cry in tells me she is anxious. No hi or si Physical exam patient anxious appearing. Regular rate and rhythm. Lungs clear. Abdomen soft nontender nondistended. Patient is saturating well on room air. History and physical exam likely anxiety versus noncardiac related chest pain. Versus viral illness. Unlikely PE, ACS, pericarditis, endocarditis, myocarditis, dissection. An EKG. Likely discharge home with Atarax. Educated patient on diagnosis and treatment plan, answered all question, patient verbalizes understanding. At this time patient will be discharged home, advised to return with new or worsening symptoms. Educated on worrisome signs and symptoms and when to return. At this time I feel comfortable discharge home. [facility] Medical History Foot pain, bilateral Allergies Sensorineural hearing loss Surgical History No pertinent past surgical history Family History Father No problems noted. Mother No problems noted. Social History Housing: Apartment Alcohol intake: never Patient Tobacco Use Status: Never used Tobacco e-Cigarette/Vaping Use: Never Used Second Hand Smoke Exposure: No service: No Current occupational status: employed Cognitive needs: No Hearing needs: Yes Vision needs: Yes Review of Systems Const Details: Constitutional : No Weight loss, No Fever, No Chills, No Fatigue, No Malaise ENT/Mouth : No sore throat, No Rhinorrhea Eyes: No Eye Pain, No Swelling, No Redness Cardiovascular : No Chest Pain, No SOB, No Dyspnea on Exertion, No Orthopnea, No Edema, No Palpitations Respiratory : No Cough, No Sputum, No Wheezing Gastrointestinal : No Nausea, No Vomiting, No Diarrhea, No Constipation, No abdominal Pain, No Hematochezia, No Melena Genitourinary : No Dysuria, No Urinary Frequency, No Hematuria, Musculoskeletal : No joint pain, No Myalgias, No Joint Swelling Skin : No Skin Lesions, No rash Neuro : No Weakness, No Numbness, No Dizziness, No Headache Psych : + Anxiety/Panic, No Depression All other systems reviewed and are negative All systems reviewed & are unremarkable except as noted in HPI and below Physical Exam Vital Signs: Last Vital Signs Temp 97.9 F 05/24/23 09:44 Pulse 96 05/24/23 09:44 BP 106/70 05/24/23 09:44 Pulse Ox 97 05/24/23 09:44 BMI result Body Mass Index 25.4 Vital signs stable Appearance: Alert.? Oriented X3.? No acute distress.? Patient tearful and anxious appearing Head: Normocephalic, atraumatic, no step-offs or deformities Eyes: Pupils equal, round and reactive to light.? ENT: Pharynx normal.? Neck: Normal inspection.? Neck supple.? CVS: Normal heart rate and rhythm.? Pulses normal.? Respiratory: No respiratory distress.? Breath sounds normal.? Abdomen: Soft and nontender.? Skin: Skin warm and dry.? Normal skin color.? Normal skin turgor.? Extremities: No lower extremity edema.? No calf ttp. 5/5 strength to bilateral upper and lower extremities Neuro: Oriented X 3.? No motor deficit.? No sensory deficit. CN 2-12 intact Assessment & Plan Assessment & Plan (1) Chest pain: Code(s): R07.9 - Chest pain, unspecified (2) Anxiety: Code(s): F41.9 - Anxiety disorder, unspecified Plan Take your medications as prescribed. If you were prescribed antibiotics today, it is important that you take your medication to their entirety, do not skip any doses, do not finish them early. Follow-up with your primary care provider this week. Return to the emergency department with new or worsening symptoms. Such as fevers, chills, chest pain, shortness of breath, nausea, vomiting, dizziness, headache, vision changes, lethargy In case of emergency call 911 Medications: New hydroxyzine HCl 25 mg PO BID PRN 14 tabs 0RF itching Coding Level of Care Code Est Pt Level 3 (43224) Diagnoses Chest pain R07.9 Anxiety F41.9
== END 2023-05-24 10:35 | disposition home or self-care (01) ==
PROVIDERS: PCP Internal Medicine; Visit Provider Physician Assistant
DX: R07.9 Chest pain, unspecified (principal); F41.9 Anxiety disorder, unspecified
CPT/HCPCS: 99213

== ENCOUNTER 2023-08-11 10:15 | Outpatient (AMB) | payer OTHER, SELFPAY ==
[2023-08-11 10:55] VITALS: BP 126/70; PULSE 94; TEMP 36.5; O2SAT 96; BMI 25.9
--- NOTE | 2023-08-11 10:55 | AM.OFFWIN_ITS ---
Intake Vital Signs 08/11/23 10:55 Height 5 ft 1 in Weight 137 lb BMI 25.9 BP 126/70 Blood Pressure Location Lt brachial Position Sitting Pulse 94 Pulse Source Pulse Oximeter Temp 97.7 F Temp Source Temporal Artery Scan Pulse Oximetry (%) 96 Oxygen Delivery Method Room Air Intake Visit Reasons: EST/random chest palpitations past few days(lobby) Intake Note: pt is here today for random chest palpitation started few days ago Patient Tobacco Use Status: Never used Tobacco Allergies codeine Adverse Reaction (Intermediate, Verified 08/11/23 10:56) Nausea/Vomiting prednisone Adverse Reaction (Intermediate, Verified 08/11/23 10:56) diarrhea, ROTH bisquit Allergy (Unknown, Uncoded 03/02/23 09:27) sneeze mold Allergy (Unknown, Uncoded 03/02/23 09:27) unknown yeast Allergy (Unknown, Uncoded 03/02/23 09:27) unknown Do you need a note to return to daycare/school/sports/work: Yes HPI EST/random chest palpitations past few days(lobby) HPI Details This is a 57 year old female patient with report of several instances of palpitations over the last few days. She reports this past Wednesday, she was doing some exercises for her plantar fasciitis and she had a sensation of palpitations. This happened again yesterday. She denies any associated symptoms with these palpitations. Denies any chest pain, weakness, shortness of breath, dizziness. Denies any cardiac history. Denies any complaints at this time. Reports she has been treated for anxiety in the past and has benefited from Xanax 0.25mg however she does not have any more of these. She is due to PCP next month and needs a f/u with psychiatrist. [facility] Medical History Foot pain, bilateral Allergies Sensorineural hearing loss Surgical History No pertinent past surgical history Family History Father No problems noted. Mother No problems noted. Social History Housing: Apartment Alcohol intake: never Patient Tobacco Use Status: Never used Tobacco e-Cigarette/Vaping Use: Never Used Second Hand Smoke Exposure: No service: No Current occupational status: employed Cognitive needs: No Hearing needs: Yes Vision needs: Yes Review of Systems Const All systems reviewed & are unremarkable except as noted in HPI and below Physical Exam Vital Signs: Last Vital Signs Temp 97.7 F 08/11/23 10:55 Pulse 94 08/11/23 10:55 BP 126/70 08/11/23 10:55 Pulse Ox 96 08/11/23 10:55 Oxygen Delivery Method Room Air 08/11/23 10:55 BMI result Body Mass Index 25.9 Const General: cooperative, healthy appearing, comfortable and no acute distress Nutritional Appearance: average body habitus HEENT Head: Yes normal to inspection Ears: hearing grossly normal bilaterally Resp Effort & Inspection: normal respiratory effort and able to speak in complete sentences Auscultation: clear to auscultation bilaterally Cardio Jugular venous distension: no JVD Palpation: normal PMI Rate: regular rate Rhythm: regular rhythm Heart sounds: S1 normal heart sound present and S2 normal heart sound present Peripheral pulses: Peripheral pulses 2+ throughout Skin General skin exam: no rashes or lesions noted Neuro General: gait normal Extrem General: Yes capillary refill normal and Yes no clubbing, cyanosis or edema Psych Appearance: grossly normal Mental Status: mental status grossly normal Speech and movement: Normal speech and movement present Assessment & Plan Assessment & Plan (1) Heart palpitations: Code(s): R00.2 - Palpitations Plan: EKG in the office was normal - NSR 90. No ectopy. Her assessment and VS today are normal. I advised her to monitor this, and if symptoms recur frequently or worsen, or if there are any associated symptoms such as chest pain or weakness, to go to the ED. Otherwise she will be seeing PCP Dr. Paul jules and can f/u with her. Patient verbalizes understanding and agrees to plan. Orders: Orders AMB EKG-In Office Today R00.2 - Palpitations Coding Level of Care Code Est Pt Level 3 (87159) Diagnoses Heart palpitations R00.2
== END 2023-08-11 12:21 | disposition home or self-care (01) ==
PROVIDERS: PCP Internal Medicine; Visit Provider Nurse Practitioner Family
DX: R00.2 Palpitations (principal)
CPT/HCPCS: 99213

== ENCOUNTER 2023-09-01 11:53 | Outpatient (AMB) | payer OTHER, SELFPAY ==
--- NOTE | 2023-09-01 11:51 | MHC.PC.OV ---
Vital Signs 09/01/23 11:52 Height 5 ft 1 in Intake Visit Reasons: Speech and Hearing [phone] Allergies codeine Adverse Reaction (Intermediate, Verified 09/01/23 11:52) Nausea/Vomiting prednisone Adverse Reaction (Intermediate, Verified 09/01/23 11:52) diarrhea, ROTH bisquit Allergy (Unknown, Uncoded 03/02/23 09:27) sneeze mold Allergy (Unknown, Uncoded 03/02/23 09:27) unknown yeast Allergy (Unknown, Uncoded 03/02/23 09:27) unknown Medication List - Last Reconciled 09/01/23 by Joey Miller MD No Known Home Meds Tobacco use date assessed: 09/01/23 Dental Screening Dental Screen Date: 09/01/23 Did you have a dental visit in the last 12 months?: Yes Did you have a dental problem in the last 6 months where you did not have access to dental care?: No Was dental information given to patient?: Patient has dentist HPI Speech and Hearing [phone] HPI Details Patient is a 57 year female with hearing impairment He is requesting assistance to find a place to have a new hearing it made Explained to patient once prescription for hearing aid is given then she need to find place herself. We do not await create a referral for that. It depends on her insurance, I did provide her with 1 number [facility] hearing aid she will call and ask if they take her insurance. [facility] Medical History Foot pain, bilateral Allergies Sensorineural hearing loss Surgical History No pertinent past surgical history Family History Father No problems noted. Mother No problems noted. Social History Housing: Apartment Alcohol intake: never Patient Tobacco Use Status: Never used Tobacco e-Cigarette/Vaping Use: Never Used Second Hand Smoke Exposure: No service: No Current occupational status: employed Cognitive needs: No Hearing needs: Yes Vision needs: Yes Questionnaire Thrive Questionnaire Date Thrive assessed: 04/22/22 AUDIT C Alcohol Use Questionnaire (AUDIT-C) 1. How often do you have a drink containing alcohol?: Never 3. How often do you have six or more drinks on one occasion?: Never Total Score: 0 Score Reviewed/Action Taken: Yes JAC-7 AMB Questionnaire JAC-7 Date JAC - 7 assessed: 04/22/22 Source: Developed by Drs. Edd Gates, Ashleigh Gaspar, Felipe Forbes and colleagues, with an educational zain from [employer]. Review of Systems Const Denies chills and Denies fever(s) ENT Denies epistaxis and Denies nasal discharge Card Denies chest pain Resp Denies chest congestion, Denies cough and Denies hemoptysis GI Denies diarrhea and Denies nausea Skin/Breast Denies rash Neuro Reports no additional complaints Psych Reports no additional complaints Endo Reports no additional complaints Physical exam (Primary Care) Tobacco/Smoking Status: Tobacco use Status Tobacco use date assessed 09/01/23 09/01/23 11:52 Patient Tobacco Use Status Never used Tobacco 09/01/23 11:52 e-Cigarette/Vaping Use Never Used 09/01/23 11:52 Thrive Assessment: Date of Thrive Assessment Date Thrive assessed 04/22/22 09/01/23 11:52 Telehealth Telehealth Location of provider rendering services: practice address Location of patient: address on file Patient Identification confirmed using: Name, : Yes Telehealth method: voice only Patient verbally consented to treatment: Yes Patient verbally consented to billing insurance company: Yes Patient informed of any privacy concerns related to visit: Yes Minutes spent on Phone/Video with Pt.: 13 Assessment and Plan Assessment & Plan (1) Hearing impaired: Code(s): H91.90 - Unspecified hearing loss, unspecified ear Qualifiers: Hearing loss type: other Laterality: bilateral Qualified Code(s): H91.8X3 - Other specified hearing loss, bilateral Plan Patient is a 57 year female with hearing impairment He is requesting assistance to find a place to have a new hearing it made Explained to patient once prescription for hearing aid is given then she need to find place herself. We do not await create a referral for that. It depends on her insurance, I did provide her with 1 number [facility] hearing aid she will call and ask if they take her insurance. Coding Level of Care Code Tele Est Pt Level 3 (45818) Diagnoses Other specified hearing loss of both ears H91.8X3 Hearing loss type: other Laterality: bilateral
== END 2023-09-01 13:43 | disposition home or self-care (01) ==
LOC: HO.HMGC 11:53
PROVIDERS: PCP Internal Medicine; Visit Provider Internal Medicine
DX: H91.8X3 Other specified hearing loss, bilateral (principal)
CPT/HCPCS: 99213

== ENCOUNTER 2023-09-22 10:19 | Outpatient (AMB) | payer OTHER, SELFPAY ==
[2023-09-22 10:23] VITALS: BP 124/78; PULSE 85; O2SAT 99; BMI 25.6
--- NOTE | 2023-09-22 10:23 | MHC.PC.OV ---
Vital Signs 09/22/23 10:23 Height 5 ft 1 in Weight 135 lb 6 oz BMI 25.6 BP 124/78 Blood Pressure Location Rt brachial Position Sitting Pulse 85 Pulse Source Pulse Oximeter Pulse Oximetry (%) 99 Oxygen Delivery Method Room Air Intake Visit Reasons: Annual PE Allergies codeine Adverse Reaction (Intermediate, Verified 09/22/23 10:23) Nausea/Vomiting prednisone Adverse Reaction (Intermediate, Verified 09/22/23 10:23) diarrhea, ROTH bisquit Allergy (Unknown, Uncoded 03/02/23 09:27) sneeze mold Allergy (Unknown, Uncoded 03/02/23 09:27) unknown yeast Allergy (Unknown, Uncoded 03/02/23 09:27) unknown Medication List - Last Reconciled 09/22/23 by Joey Miller MD No Known Home Meds Tobacco use date assessed: 09/22/23 Dental Screening Dental Screen Date: 09/22/23 Did you have a dental visit in the last 12 months?: Yes Did you have a dental problem in the last 6 months where you did not have access to dental care?: No Was dental information given to patient?: Patient has dentist HPI Annual PE HPI Details Patient is 58-year-old female came in today for physical examination She is getting over a head cold Mild cough mild chest congestion no fever no chills Patient is due for colonoscopy she said she has appointment in October with [facility] Due for Pap smear, patient says that she had to reschedule her appointment she will call and book another appointment Mammogram is due, order placed Breast exam was done today patient have a very fiber nodular breast but no lump force felt Anxiety hernandez she is doing much better. Due for labs order placed patient notified to do it fasting. Follow-up in 1 year for physical examination [facility] Medical History Foot pain, bilateral Allergies Sensorineural hearing loss Surgical History No pertinent past surgical history Family History Father No problems noted. Mother No problems noted. Social History Housing: Apartment Alcohol intake: never Patient Tobacco Use Status: Never used Tobacco e-Cigarette/Vaping Use: Never Used Second Hand Smoke Exposure: No service: No Current occupational status: employed Cognitive needs: No Hearing needs: Yes Vision needs: Yes Questionnaire Thrive Questionnaire Date Thrive assessed: 04/22/22 AUDIT C Alcohol Use Questionnaire (AUDIT-C) 1. How often do you have a drink containing alcohol?: Never 3. How often do you have six or more drinks on one occasion?: Never Total Score: 0 Score Reviewed/Action Taken: Yes JAC-7 AMB Questionnaire JAC-7 Date JAC - 7 assessed: 04/22/22 Source: Developed by Drs. Edd Gates, Ashleigh Gaspar, Felipe Forbes and colleagues, with an educational zain from [employer]. Review of Systems Const Denies chills, Denies fever(s) and Denies headache(s) Eyes Denies blurry vision ENT Denies headache(s), Denies nasal discharge, Denies nasal obstruction, Denies odynophagia and Denies sinus pain Card Denies chest pain at rest and Denies chest pain with activity Resp Denies hemoptysis GI Denies diarrhea, Denies odynophagia, Denies vomiting and Denies hematemesis Reports as per HPI Musc Denies abnormal gait Skin/Breast Reports as per HPI Neuro Denies Neuro-related abnormal movements, Denies Abnormal speech present, Denies abnormal gait, Denies headache(s) and Denies Sensory deficit (Neuro) Psych Denies mood swings and Denies paranoia Endo Reports as per HPI Maciel/Lymph Reports as per HPI Aller/Immun Reports as per HPI Physical exam (Primary Care) Vital Signs: Last Vital Signs Pulse 85 09/22/23 10:23 BP 124/78 09/22/23 10:23 Pulse Ox 99 09/22/23 10:23 Oxygen Delivery Method Room Air 09/22/23 10:23 BMI result Body Mass Index 25.6 Tobacco/Smoking Status: Tobacco use Status Tobacco use date assessed 09/22/23 09/22/23 10:26 Patient Tobacco Use Status Never used Tobacco 09/22/23 10:26 e-Cigarette/Vaping Use Never Used 09/22/23 10:26 Thrive Assessment: Date of Thrive Assessment Date Thrive assessed 04/22/22 09/22/23 10:26 Const General: cooperative, comfortable and no acute distress Orientation/consciousness: patient oriented x3 HENMT Head: Yes normocephalic and Yes atraumatic Eyes General: appearance normal, both eyes and all related structures Pupils: Equal, round and reactive pupils present EOM: EOMs intact bilaterally Neck Neck: Yes supple and No lymphadenopathy Thyroid: Thyroid normal Lymphatic: no lymphadenopathy noted Chest Breast/axilla palpation: normal palpation of the breasts Resp Effort & Inspection: normal respiratory effort and able to speak in complete sentences Auscultation: clear to auscultation bilaterally Cardio Heart sounds: S1 normal heart sound present and S2 normal heart sound present GI Palpation (GI): Soft to palpation and nontender Auscultation: normal bowel sounds General: Yes no CVA tenderness Back/Spine/Pelvis Back: no CVA tenderness Skin General skin exam: elasticity normal and turgor normal Neuro General: patient oriented x3 and gait normal Cranial nerves: Yes Equal, round and reactive pupils present Speech: No Abnormal speech present Sensory Exam: No Sensory deficit (Neuro) Coordination: tandem gait normal and Romberg test negative Extrem General: Yes normal exam except as noted and No edema Assessment and Plan Assessment & Plan (1) Encounter for general adult medical examination with abnormal findings: Code(s): Z00.01 - Encounter for general adult medical examination with abnormal findings (2) Hearing impaired: Code(s): H91.90 - Unspecified hearing loss, unspecified ear Qualifiers: Hearing loss type: other Laterality: bilateral Qualified Code(s): H91.8X3 - Other specified hearing loss, bilateral (3) Panic anxiety syndrome: Code(s): F41.0 - Panic disorder [episodic paroxysmal anxiety] (4) Heart palpitations: Code(s): R00.2 - Palpitations (5) Sensorineural hearing loss: Code(s): H90.5 - Unspecified sensorineural hearing loss Qualifiers: Laterality: bilateral Qualified Code(s): H90.3 - Sensorineural hearing loss, bilateral Plan Patient is 58-year-old female came in today for physical examination She is getting over a head cold Mild cough mild chest congestion no fever no chills Patient is due for colonoscopy she said she has appointment in October with [facility] Due for Pap smear, patient says that she had to reschedule her appointment she will call and book another appointment Mammogram is due, order placed Breast exam was done today patient have a very fiber nodular breast but no lump force felt Anxiety hernandez she is doing much better. Due for labs order placed patient notified to do it fasting. Follow-up in 1 year for physical examination Orders: Orders Complete Blood Count Auto Diff Today F41.0 - Panic disorder [episodic paroxysmal anxiety], H90.5 - Unspecified sensorineural hearing loss, H91.90 - Unspecified hearing loss, unspecified ear, R00.2 - Palpitations, T78.40XA - Allergy, unspecified, initial encounter, Z00.01 - Encounter for general adult medical examination with abnormal findings Lipid Panel Today F41.0 - Panic disorder [episodic paroxysmal anxiety], H90.5 - Unspecified sensorineural hearing loss, H91.90 - Unspecified hearing loss, unspecified ear, R00.2 - Palpitations, T78.40XA - Allergy, unspecified, initial encounter, Z00.01 - Encounter for general adult medical examination with abnormal findings TSH reflex Free T4 Today F41.0 - Panic disorder [episodic paroxysmal anxiety], H90.5 - Unspecified sensorineural hearing loss, H91.90 - Unspecified hearing loss, unspecified ear, R00.2 - Palpitations, T78.40XA - Allergy, unspecified, initial encounter, Z00.01 - Encounter for general adult medical examination with abnormal findings MM tomosynthesis screening BI Today Z12.31 - Encounter for screening mammogram for malignant neoplasm of breast Comprehensive [place]. Panel Fast Today F41.0 - Panic disorder [episodic paroxysmal anxiety], H90.5 - Unspecified sensorineural hearing loss, H91.90 - Unspecified hearing loss, unspecified ear, R00.2 - Palpitations, T78.40XA - Allergy, unspecified, initial encounter, Z00.01 - Encounter for general adult medical examination with abnormal findings Coding Level of Care Code Est Pt Prev Care 40-64y(02823) Diagnoses Encounter for general adult medical examination with abnormal findings Z00.01 Other specified hearing loss of both ears H91.8X3 Hearing loss type: other Laterality: bilateral Panic anxiety syndrome F41.0 Heart palpitations R00.2 Sensorineural hearing loss (SNHL) of both ears H90.3 Laterality: bilateral
== END 2023-09-22 10:56 | disposition home or self-care (01) ==
PROVIDERS: PCP Internal Medicine; Visit Provider Internal Medicine
DX: Z00.00 Encounter for general adult medical examination without abnormal findings (principal); H91.8X3 Other specified hearing loss, bilateral; F41.0 Panic disorder [episodic paroxysmal anxiety]; F41.9 Anxiety disorder, unspecified; R00.2 Palpitations; H90.3 Sensorineural hearing loss, bilateral
CPT/HCPCS: 99396

== ENCOUNTER 2023-09-27 09:00 | Outpatient (AMB) | payer OTHER, SELFPAY ==
[2023-09-27 10:26] VITALS: BP 126/70; PULSE 113; TEMP 36.4; O2SAT 98; BMI 25.5
--- NOTE | 2023-09-27 10:26 | MHC.OFFWIV ---
Intake Vital Signs 09/27/23 10:26 Height 5 ft 1 in Weight 61.235 kg BMI 25.5 BP 126/70 Blood Pressure Location Lt brachial Position Sitting Pulse 113 H Pulse Source Pulse Oximeter Temp 97.6 F Temp Source Oral Pulse Oximetry (%) 98 Intake Visit Reasons: EP Cough, congestion not better (masked) Intake Note: pt is here for c.o cough, congestion not getting better Patient Tobacco Use Status: Never used Tobacco Allergies codeine Adverse Reaction (Intermediate, Verified 09/27/23 10:27) Nausea/Vomiting prednisone Adverse Reaction (Intermediate, Verified 09/27/23 10:27) diarrhea, ROTH bisquit Allergy (Unknown, Uncoded 03/02/23 09:27) sneeze mold Allergy (Unknown, Uncoded 03/02/23 09:27) unknown yeast Allergy (Unknown, Uncoded 03/02/23 09:27) unknown Do you need a note to return to daycare/school/sports/work: No HPI HPI Comments History of Present Illness Details 1038 58-year-old female history of anxiety, diarrhea, PVCs, palpitations presenting for evaluation of fatigue, malaise, myalgias, congestion ongoing for the past three weeks or so not improving. Patient reports symptoms seem to be getting worse. Coughing up clear thick mucus. Denies fevers, chills, chest pain, shortness of breath, wheezing, headache, vision changes, nausea, vomiting, diarrhea. Physical exam benign. This is likely bronchitis versus viral illness. Unlikely pneumonia, PE, ACS, dissection, acute respiratory distress. Other differentials include sinusitis Will treat for bacterial bronchitis with doxycycline, prednisone and albuterol. Educated patient on diagnosis and treatment plan, answered all question, patient verbalizes understanding. At this time patient will be discharged home, advised to return with new or worsening symptoms. Educated on worrisome signs and symptoms and when to return. At this time I feel comfortable discharge home. [facility] Medical History Foot pain, bilateral Allergies Sensorineural hearing loss Surgical History No pertinent past surgical history Family History Father No problems noted. Mother No problems noted. Social History Housing: Apartment Alcohol intake: never Patient Tobacco Use Status: Never used Tobacco e-Cigarette/Vaping Use: Never Used Second Hand Smoke Exposure: No service: No Current occupational status: employed Cognitive needs: No Hearing needs: Yes Vision needs: Yes Review of Systems Const All systems reviewed & are unremarkable except as noted in HPI and below Physical Exam Vital Signs: Last Vital Signs Temp 97.6 F 09/27/23 10:26 Pulse 113 H 09/27/23 10:26 BP 126/70 09/27/23 10:26 Pulse Ox 98 09/27/23 10:26 BMI result Body Mass Index 25.5 Slight tachycardia likely secondary to anxiety and not feeling well/viral illness Appearance: Alert.? Oriented X3.? No acute distress.? Head: Normocephalic, atraumatic, no step-offs or deformities Eyes: Pupils equal, round and reactive to light.? CVS: Normal heart rate and rhythm.? Pulses normal.? Respiratory: No respiratory distress.? Breath sounds normal.? Abdomen: Soft and nontender.? Skin: Skin warm and dry.? Normal skin color.? Normal skin turgor.? Extremities: No lower extremity edema.? No calf ttp. 5/5 strength to bilateral upper and lower extremities Neuro: Oriented X 3.? No motor deficit.? No sensory deficit. CN 2-12 intact Assessment & Plan Assessment & Plan (1) Acute bronchitis: Code(s): J20.9 - Acute bronchitis, unspecified Plan Take your medications as prescribed. If you were prescribed antibiotics today, it is important that you take your medication to their entirety, do not skip any doses, do not finish them early. Follow-up with your primary care provider this week. Return to the emergency department with new or worsening symptoms. Such as fevers, chills, chest pain, shortness of breath, nausea, vomiting, dizziness, headache, vision changes, lethargy In case of emergency call 911 Orders: Orders BinaxNOW Covid-19 Ag Today J20.9 - Acute bronchitis, unspecified Medications: New doxycycline hyclate 100 mg PO BID 14 caps 0RF 7 days albuterol sulfate 90 mcg/actuation 2 puffs inhalation Q6H PRN 6.7 grams 0RF shortness of breath or wheezing Coding Level of Care Code Est Pt Level 3 (41789) Diagnoses Acute bronchitis J20.9
== END 2023-09-27 11:30 | disposition home or self-care (01) ==
PROVIDERS: PCP Internal Medicine; Visit Provider Physician Assistant
DX: J20.9 Acute bronchitis, unspecified (principal)
CPT/HCPCS: 99213

== ENCOUNTER 2023-10-01 13:23 | Outpatient (AMB) | payer OTHER, SELFPAY ==
[2023-10-01 13:24] VITALS: BP 120/68; PULSE 96; TEMP 36.6; O2SAT 97; BMI 25.7
--- NOTE | 2023-10-01 13:24 | AM.OFFWIN_ITS ---
Intake Vital Signs 10/01/23 13:24 Height 5 ft 1 in Weight 136 lb BMI 25.7 BP 120/68 Blood Pressure Location Lt brachial Position Sitting Pulse 96 Pulse Source Pulse Oximeter Temp 97.8 F Temp Source Temporal Artery Scan Pulse Oximetry (%) 97 Oxygen Delivery Method Room Air Intake Visit Reasons: EP migraine bronchitis Intake Note: pt is here today for migraine bronchitis started yesterday Patient Tobacco Use Status: Never used Tobacco Allergies codeine Adverse Reaction (Intermediate, Verified 10/01/23 13:25) Nausea/Vomiting prednisone Adverse Reaction (Intermediate, Verified 10/01/23 13:25) diarrhea, ROTH bisquit Allergy (Unknown, Uncoded 03/02/23 09:27) sneeze mold Allergy (Unknown, Uncoded 03/02/23 09:27) unknown yeast Allergy (Unknown, Uncoded 03/02/23 09:27) unknown Do you need a note to return to daycare/school/sports/work: Yes HPI HPI Comments History of Present Illness Details 58 y/o female patient who [facility] clinic with c/o Tension headaches for few days. Report the pain located at the Occipital region. Denies h/o Migraine headaches. Denies injury or trauma. Denies Nausea or vomiting. Denies fevers. chills, but dry cough. She was given Abx Wednesday for Bronchitis. [facility] Medical History Foot pain, bilateral Allergies Sensorineural hearing loss Surgical History No pertinent past surgical history Family History Father No problems noted. Mother No problems noted. Social History Housing: Apartment Alcohol intake: never Patient Tobacco Use Status: Never used Tobacco e-Cigarette/Vaping Use: Never Used Second Hand Smoke Exposure: No service: No Current occupational status: employed Cognitive needs: No Hearing needs: Yes Vision needs: Yes Review of Systems Const All systems reviewed & are unremarkable except as noted in HPI and below Physical Exam Vital Signs: Last Vital Signs Temp 97.8 F 10/01/23 13:24 Pulse 96 10/01/23 13:24 BP 120/68 10/01/23 13:24 Pulse Ox 97 10/01/23 13:24 Oxygen Delivery Method Room Air 10/01/23 13:24 BMI result Body Mass Index 25.7 Const General: comfortable and no acute distress Orientation/consciousness: patient oriented x3 Resp Effort & Inspection: normal respiratory effort Auscultation: clear to auscultation bilaterally Cardio Rate: regular rate Rhythm: regular rhythm Neuro General: patient oriented x3 and gait normal Psych Speech and movement: Normal speech and movement present Attitude: cooperative Assessment & Plan Assessment & Plan (1) Acute bronchitis: Code(s): J20.9 - Acute bronchitis, unspecified Qualifiers: Bronchitis organism: unspecified organism Qualified Code(s): J20.9 - Acute bronchitis, unspecified Plan: - Continue on Abx as prescribed - OTC cough remedies (2) Tension headache: Code(s): G44.209 - Tension-type headache, unspecified, not intractable Plan: - Acetaminophen Q8 hrs for pain relief. - Rest in dark and quite room. - Avoid brain stimulation (No screen time). Coding Level of Care Code Est Pt Level 3 (92916) Diagnoses Acute bronchitis, unspecified organism J20.9 Bronchitis organism: unspecified organism Tension headache G44.209 Time Spent (min) 15
== END 2023-10-01 13:55 | disposition home or self-care (01) ==
PROVIDERS: PCP Internal Medicine; Visit Provider Nurse Practitioner Family
DX: J20.9 Acute bronchitis, unspecified (principal); G44.209 Tension-type headache, unspecified, not intractable
CPT/HCPCS: 99213

== ENCOUNTER 2023-10-13 08:11 | Outpatient (REF) | payer OTHER, SELFPAY ==
[2023-10-13 11:23] LABS: MANUAL DIFF FLAG NO
[2023-10-13 11:31] LABS: Basophils Percent Auto 0.4 % (0-2); Eosinophils Absolute Auto 0.1 X10*3/uL (0.0-0.4); Eosinophils Percent Auto 1.3 % (0-4); Hematocrit 43.5 % (37.0-47.0); Hemoglobin 14.6 g/dl (12.0-16.0); Imm Gran Abs Auto 0.01 X10*3/uL (0.00-0.03); Imm Gran Pct Auto 0.2 % (0.0-0.4); Lymphocytes Absolute Auto 1.4 X10*3/uL (1.2-4.9); Lymphocytes Percent Auto 25.9 % (20-40); Mean Corpuscular HGB Conc 33.6 g/dl (31.0-35.0); Mean Corpuscular Hemoglobin 29.3 pg (27.0-33.0); Mean Corpuscular Volume 87.3 fL (80.0-98.0); Mean Platelet Volume 10.9 fL (9.4-12.3); Monocytes Absolute Auto 0.2 X10*3/uL (0.1-1.2); Monocytes Percent Auto 4.4 % (2-11); Neutrophils Absolute Auto 3.7 x10*3/uL (2.0-8.3); Neutrophils Percent Auto 67.8 % (45-73); Platelet Count 152 X10*3/uL (160-400); Red Blood Count 4.98 X10*6/uL (4.20-5.50); Red Cell Distribution Width 12.2 % (11.0-16.0); White Blood Count 5.5 X10*3/uL (4.8-10.8)
[2023-10-13 12:02] LABS: TSH reflex Free T4 1.91 uIU/mL (0.32-4.0)
[2023-10-13 12:10] LABS: Alanine Aminotransferase 17 U/L (0-31); Albumin Level 4.1 g/dL (3.5-5.0); Alkaline Phosphatase 86 U/L (39-117); Anion Gap 10 (12-20); Aspartate Amino Transferase 14 U/L (5-31); Blood Urea Nitrogen 19 mg/dL (9-16); Calcium 8.8 mg/dL (8.4-10.2); Carbon Dioxide 28 mmol/L (22-29); Chloride 110 mmol/L (96-108); Cholesterol 173 mg/dL (<200); Estimated Glomerular Filt Rate > 60; Glucose Fasting 57 mg/dL (60-99); HDL Cholesterol 55 mg/dL (>40); LDL Cholesterol Calculated 98 mg/dL (<100); Potassium 4.1 mmol/L (3.3-5.1); Sodium 144 mmol/L (135-145); Total Protein 6.3 g/dL (6.5-8.0); Triglycerides 100 mg/dL (<150)
== END 2023-10-13 08:12 | disposition home or self-care (01) ==
LOC: HO.HMGCLDS 08:11
PROVIDERS: PCP Internal Medicine; Visit Provider Internal Medicine
DX: Z00.01 Encounter for general adult medical examination with abnormal findings (principal); H90.5 Unspecified sensorineural hearing loss; R00.2 Palpitations; F41.0 Panic disorder [episodic paroxysmal anxiety]; T78.40XA Allergy, unspecified, initial encounter
CPT/HCPCS: 36415; 80053; 80061; 84443; 85025

== ENCOUNTER 2023-10-22 09:53 | Outpatient (AMB) | payer OTHER, SELFPAY ==
[2023-10-22 09:58] VITALS: BP 126/70; PULSE 95; O2SAT 97; BMI 25.8
--- NOTE | 2023-10-22 09:58 | MHC.PC.OV ---
Vital Signs 10/22/23 09:58 Height 5 ft 1 in Weight 136 lb 6 oz BMI 25.8 BP 126/70 Blood Pressure Location Lt brachial Position Sitting Pulse 95 Pulse Source Pulse Oximeter Pulse Oximetry (%) 97 Oxygen Delivery Method Room Air Intake Visit Reasons: Letter for Work~ Allergies codeine Adverse Reaction (Intermediate, Verified 10/22/23 09:58) Nausea/Vomiting prednisone Adverse Reaction (Intermediate, Verified 10/22/23 09:58) diarrhea, ROTH bisquit Allergy (Unknown, Uncoded 03/02/23 09:27) sneeze mold Allergy (Unknown, Uncoded 03/02/23 09:27) unknown yeast Allergy (Unknown, Uncoded 03/02/23 09:27) unknown Tobacco use date assessed: 10/22/23 Dental Screening Dental Screen Date: 10/22/23 Did you have a dental visit in the last 12 months?: Yes Did you have a dental problem in the last 6 months where you did not have access to dental care?: No Was dental information given to patient?: Patient has dentist HPI Letter for Work~ HPI Details Patient is 58 year female came in today to be evaluated Patient says that she had chicken yesterday For supper, woke up in the middle of the night with discomfort around her chest Patient thought she is having indigestion which got better and she fell asleep In the morning she woke up she was feeling fine she went for her walk Then took a shower After that she started having little bit of shaking of her hands She was able to eat her breakfast and then she felt fine The that patient felt urgency to have bowel movement and then she was fine Patient says that when she had labs done early this month she was told her sugar is too low It was 57 however during the lab test patient was feeling fine Today she is feeling fine at her baseline Her sugar is 117 We did the EKG which shows no new findings compared to EKG done last year Patient was reassured, if symptoms reappeared she may go to emergency room For next 2 days I would recommend small meals [facility] Medical History Foot pain, bilateral Allergies Sensorineural hearing loss Surgical History No pertinent past surgical history Family History Father No problems noted. Mother No problems noted. Social History Housing: Apartment Alcohol intake: never Patient Tobacco Use Status: Never used Tobacco e-Cigarette/Vaping Use: Never Used Second Hand Smoke Exposure: No service: No Current occupational status: employed Cognitive needs: No Hearing needs: Yes Vision needs: Yes Questionnaire Thrive Questionnaire Date Thrive assessed: 04/22/22 AUDIT C Alcohol Use Questionnaire (AUDIT-C) 1. How often do you have a drink containing alcohol?: Never 3. How often do you have six or more drinks on one occasion?: Never Total Score: 0 Score Reviewed/Action Taken: Yes JAC-7 AMB Questionnaire JAC-7 Date JAC - 7 assessed: 04/22/22 Source: Developed by Drs. Edd Gates, Ashleigh Gaspar, Felipe Forbes and colleagues, with an educational zain from [employer]. Review of Systems Const Denies chills and Denies fever(s) ENT Denies epistaxis and Denies nasal discharge Card Denies chest pain Resp Denies chest congestion, Denies cough and Denies hemoptysis GI Denies diarrhea and Denies nausea Skin/Breast Denies rash Neuro Reports no additional complaints Psych Reports no additional complaints Endo Reports no additional complaints Physical exam (Primary Care) Vital Signs: Last Vital Signs Pulse 95 10/22/23 09:58 BP 126/70 10/22/23 09:58 Pulse Ox 97 10/22/23 09:58 Oxygen Delivery Method Room Air 10/22/23 09:58 BMI result Body Mass Index 25.8 Tobacco/Smoking Status: Tobacco use Status Tobacco use date assessed 10/22/23 10/22/23 10:00 Patient Tobacco Use Status Never used Tobacco 10/22/23 10:00 e-Cigarette/Vaping Use Never Used 10/22/23 10:00 Thrive Assessment: Date of Thrive Assessment Date Thrive assessed 04/22/22 10/22/23 10:00 Const General: cooperative, comfortable and no acute distress Orientation/consciousness: patient oriented x3 HENMT Head: Yes normocephalic Eyes General: appearance normal, both eyes and all related structures Neck Neck: Yes supple Resp Effort & Inspection: normal respiratory effort, no cough and no stridor Cardio Rhythm: regular rhythm Heart sounds: S1 normal heart sound present and S2 normal heart sound present Skin General skin exam: turgor normal Neuro General: patient oriented x3, tone normal and moves all extremities Extrem Right lower extremity: no edema Left lower extremity: no edema Office Procedures EKG [id number], Complete Results AMB Random Glucose (hemocue) AMB Random Glucose (hemocue) 117 mg/dL Last Edit by RAINA Holley on 10/22/23 10:27 Results Reviewed Results Reviewed: Laboratory Last Values Random Glu (Clinic) 117 mg/dL 10/22/23 10:26 Assessment and Plan Assessment & Plan (1) Atypical chest pain: Code(s): R07.89 - Other chest pain (2) Hypoglycemia: Code(s): E16.2 - Hypoglycemia, unspecified Plan Patient is 58 year female came in today to be evaluated Patient says that she had chicken yesterday For supper, woke up in the middle of the night with discomfort around her chest Patient thought she is having indigestion which got better and she fell asleep In the morning she woke up she was feeling fine she went for her walk Then took a shower After that she started having little bit of shaking of her hands She was able to eat her breakfast and then she felt fine The that patient felt urgency to have bowel movement and then she was fine Patient says that when she had labs done early this month she was told her sugar is too low It was 57 however during the lab test patient was feeling fine Today she is feeling fine at her baseline Her sugar is 117 We did the EKG which shows no new findings compared to EKG done last year Patient was reassured, if symptoms reappeared she may go to emergency room For next 2 days I would recommend small meals Orders: Orders AMB Random Glucose (hemocue) Today Z13.9 - Encounter for screening, unspecified AMB EKG-In Office Today R07.89 - Other chest pain Coding Level of Care Code Est Pt Level 5 (66096) Diagnoses Atypical chest pain R07.89 Hypoglycemia E16.2 CPT Codes EKG - CPT: 38658-[id number], Complete ([id number]) Time Spent (min) 45 Comment 5 minute pre visit, 25 minute with the patient, 10 minute EKG, 5 minute charting
== END 2023-10-22 10:46 | disposition home or self-care (01) ==
PROVIDERS: PCP Internal Medicine; Visit Provider Internal Medicine
DX: R07.89 Other chest pain (principal); E16.2 Hypoglycemia, unspecified
CPT/HCPCS: 82948; 93000; 99215

== ENCOUNTER 2023-11-03 08:47 | Outpatient (REF) | payer OTHER, SELFPAY ==
--- NOTE | ~2023-11-03 | MM_ITS ---
EXAMINATION: MM SCREENING DIGITAL BREAST TOMOSYNTHESIS, BILATERAL CLINICAL INFORMATION: Screening. Asymptomatic. COMPARISON: Mammography: This study is compared with prior exams dating back to 2022. TECHNIQUE: Digital breast tomosynthesis is performed in both the craniocaudal and mediolateral oblique views along with computer-aided detection (CAD). Synthesized 2D images are generated from the tomosynthesis. FINDINGS: The breasts are heterogeneously dense, which may obscure small masses (ACR BI-RADS breast composition Category c). There are no significant masses, abnormal calcifications, or other abnormalities. MM/MM tomosynthesis screening BI IMPRESSION: No mammographic evidence of malignancy. ASSESSMENT: BI-RADS BI-RADS 1 - Negative RECOMMENDATION: Routine annual mammography screening. 1 year F/U This examination should not preclude the clinical evaluation of a suspicious palpable abnormality. This patient's information was entered into a reminder system with a target due date for their next mammogram.
== END 2023-11-03 08:48 | disposition home or self-care (01) ==
LOC: HO.MAMMO 08:47
PROVIDERS: PCP Internal Medicine; Visit Provider Internal Medicine
DX: Z12.31 Encounter for screening mammogram for malignant neoplasm of breast (principal)
CPT/HCPCS: 77063; 77067

== ENCOUNTER → 2023-11-03 09:15 | Outpatient (BNV) | payer OTHER, SELFPAY | PROVIDERS: PCP Internal Medicine; Visit Provider Radiology Diagnostic Radiology | DX: Z12.31 Encounter for screening mammogram for malignant neoplasm of breast (principal) | CPT/HCPCS: 77063; 77067 ==

== ENCOUNTER 2023-11-29 08:18 | Outpatient (REF) | payer OTHER, SELFPAY ==
[2023-12-03 21:08] LABS: HPV mRNA E6/E7 rflx Not Detected (Not Detected)
== END 2023-11-29 08:19 | disposition home or self-care (01) ==
LOC: HO.LNP 08:18
PROVIDERS: PCP Internal Medicine; Visit Provider Obstetrics & Gynecology
DX: Z01.419 Encounter for gynecological examination (general) (routine) without abnormal findings (principal); Z78.0 Asymptomatic menopausal state; Z71.9 Counseling, unspecified
CPT/HCPCS: 87624; 88142; 99386

== ENCOUNTER 2023-11-29 08:18 | Outpatient (AMB) | payer OTHER, SELFPAY ==
[2023-11-29 08:26] VITALS: BP 90/60; BMI 25.5
--- NOTE | 2023-11-29 08:26 | MHC.OFFVIS ---
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 No complaints. Last Pap/HPV was normal 10 years ago Last Mammogram was BI-RADS 1 in 11/13 No previous screening Colonoscopy PFSH Medical History Foot pain, bilateral Allergies Sensorineural hearing loss Surgical History No pertinent past surgical history Family History Father No problems noted. Mother No problems noted. Social History (Updated 11/29/23 @ 08:33 by CAITY Caro) Housing: Apartment Alcohol intake: never Patient Tobacco Use Status: Never used Tobacco e-Cigarette/Vaping Use: Never Used Second Hand Smoke Exposure: No service: No Current occupational status: employed Sexually active: No Cognitive needs: No Hearing needs: Yes Vision needs: Yes Female Reproductive History Menstrual Menopause type: natural Total pregnancies: 0 Date of Mammogram: 11/03/23 (birad 1) Review of Systems Const All systems reviewed & are unremarkable except as noted in HPI and below Card Reports as per HPI Resp Reports as per HPI GI Reports as per HPI and Reports no additional complaints Reports as per HPI Physical Exam Vital Signs: Last Vital Signs BP 90/60 11/29/23 08:26 BMI result Body Mass Index 25.5 Const General: cooperative, healthy appearing and comfortable Chest Chest palpation & inspection: normal inspection of the chest and normal palpation of entire chest wall Breast/axilla inspection: normal inspection of the breasts and normal inspection of the axillae Breast/axilla palpation: normal palpation of the breasts, normal palpation of the axillae and no axillary lymphadenopathy Resp Effort & Inspection: normal respiratory effort Auscultation: clear to auscultation bilaterally Percussion: percussion normal Cardio Palpation: normal PMI Rate: regular rate Rhythm: regular rhythm Heart sounds: no murmurs and no rubs Peripheral pulses: Peripheral pulses 2+ throughout GI Inspection: Yes normal to inspection Palpation (GI): Soft to palpation, nontender, no guarding, not rigid and No hepatosplenomegaly present Percussion: Yes normal to percussion Auscultation: normal bowel sounds Rectal Exam - Female: deferred General: Yes bladder normal to palpation External Female Exam: No lesion Speculum Exam - Vagina: normal appearance of the vagina, normal palpation, normal vaginal discharge and not erythematous Speculum Exam - Cervix: normal appearance of the cervix and normal palpation Bimanual exam- vagina & uterus: normal bimanual exam, normal palpation, uterine size normal, bladder normal to palpation, consistency normal and normal palpation Bimanual Exam- Adnexa, other: normal adnexae, no masses and no tenderness Assessment & Plan Assessment & Plan (1) Well woman exam: Code(s): Z01.419 - Encounter for gynecological examination (general) (routine) without abnormal findings Plan: Co testing done. Counseled the patient about the recommended dietary allowance of 1200 mg of Calcium & 600 IU of vitamin D. Instructions given the patient to schedule next screening Mammogram in 11/14. The patient was referred to GI for screening colonoscopy . The patient was instructed to perform monthly self-breast exams and schedule annual exam in a year. All questions answered and the patient verbalized understanding. Orders: Referrals Gastroenterology Referral Z12.11 - Encounter for screening for malignant neoplasm of colon Coding Level of Care Code New Pt Prev Care 40-64y(78247) Diagnoses Well woman exam Z01.419
== END 2023-11-29 09:31 | disposition home or self-care (01) ==
PROVIDERS: PCP Internal Medicine; Visit Provider Obstetrics & Gynecology
DX: Z01.419 Encounter for gynecological examination (general) (routine) without abnormal findings (principal)
CPT/HCPCS: 99386

== ENCOUNTER 2024-01-31 10:07 | Outpatient (AMB) | payer OTHER, SELFPAY ==
[2024-01-31 11:00] VITALS: BP 120/70; PULSE 97; TEMP 36.3; O2SAT 97; BMI 25.7
--- NOTE | 2024-01-31 11:00 | MHC.OFFWIV ---
Intake Vital Signs 01/31/24 11:00 Height 5 ft 1 in Weight 136 lb BMI 25.7 BP 120/70 Blood Pressure Location Lt brachial Position Sitting Pulse 97 Pulse Source Pulse Oximeter Temp 97.4 F Temp Source Temporal Artery Scan Pulse Oximetry (%) 97 Oxygen Delivery Method Room Air Intake Visit Reasons: EP Chapped lips very painful/?Cotton LT ear Intake Note: pt is here today for chapped lips very painful started 2 weeks ago Patient Tobacco Use Status: Never used Tobacco Allergies codeine Adverse Reaction (Intermediate, Verified 01/31/24 11:11) Nausea/Vomiting prednisone Adverse Reaction (Intermediate, Verified 01/31/24 11:11) diarrhea, ROTH bisquit Allergy (Unknown, Uncoded 01/31/24 11:11) sneeze mold Allergy (Unknown, Uncoded 01/31/24 11:11) unknown yeast Allergy (Unknown, Uncoded 01/31/24 11:11) unknown Do you need a note to return to daycare/school/sports/work: No HPI HPI Comments History of Present Illness Details Patient presents to the walk-in today for sick visit Complaining of dry lips for last one-week Also concern for retained piece of Q-tip in the right ear Denies ear pain, drainage from the ear, headaches, or changes to her hearing. Does wear hearing aid in the right ear [facility] Medical History Foot pain, bilateral Allergies Sensorineural hearing loss Surgical History No pertinent past surgical history Family History Father No problems noted. Mother No problems noted. Social History (Updated 11/29/23 @ 08:33 by CAITY Caro) Housing: Apartment Alcohol intake: never Patient Tobacco Use Status: Never used Tobacco e-Cigarette/Vaping Use: Never Used Second Hand Smoke Exposure: No service: No Current occupational status: employed Cognitive needs: No Hearing needs: Yes Vision needs: Yes Review of Systems Const All systems reviewed & are unremarkable except as noted in HPI and below Physical Exam Vital Signs: Last Vital Signs Temp 97.4 F 01/31/24 11:00 Pulse 97 01/31/24 11:00 BP 120/70 01/31/24 11:00 Pulse Ox 97 01/31/24 11:00 Oxygen Delivery Method Room Air 01/31/24 11:00 BMI result Body Mass Index 25.7 General: awake, alert, oriented. Answers questions appropriately. Fully engaged in examination. Skin: warm, dry, intact. Lips dry, without cracks, lesions or signs of infection HEENT: Normocephalic. Hearing aids right ear. Canal clear, without signs of foreign body/retained piece of Q-tip. Without erythema or exudate. Cardiac: External chest normal in appearance. Respiratory: No cough, audible wheezing or stridor. Abdomen: without gross distension. MS: No obvious swelling or deformities. Neurological: Oriented to person, place, time and situation. Thought process intact. No gait abnormalities appreciated. Psychiatric: Appropriate mood and affect. Good judgment and insight. Assessment & Plan Assessment & Plan (1) Chapped lips: Code(s): K13.0 - Diseases of lips Plan Increase fluid intake Recommend [id number] lip balm, and a ointment or hydrocortisone cream Follow up with PCP or return here for any new or worsening symptoms Coding Level of Care Code Est Pt Level 3 (81439) Diagnoses Chapped lips K13.0
== END 2024-01-31 11:50 | disposition home or self-care (01) ==
PROVIDERS: PCP Internal Medicine; Visit Provider Registered Nurse Emergency
DX: K13.0 Diseases of lips (principal)
CPT/HCPCS: 99213

== ENCOUNTER 2024-06-10 09:46 | Outpatient (AMB) | payer OTHER, SELFPAY ==
[2024-06-10 09:57] VITALS: BP 102/72; PULSE 90; TEMP 36.5; O2SAT 100; BMI 25.5
--- NOTE | 2024-06-10 09:57 | AM.OFFWIN_ITS ---
Intake Vital Signs 06/10/24 09:57 Height 5 ft 1 in Weight 135 lb BMI 25.5 BP 102/72 Blood Pressure Location Rt brachial Position Sitting Pulse 90 Pulse Source Pulse Oximeter Temp 97.7 F Temp Source Oral Pulse Oximetry (%) 100 Oxygen Delivery Method Room Air Intake Visit Reasons: EP-palpitations, upset stomach Patient Tobacco Use Status: Never used Tobacco Allergies codeine Adverse Reaction (Intermediate, Verified 06/10/24 10:12) Nausea/Vomiting prednisone Adverse Reaction (Intermediate, Verified 06/10/24 10:12) diarrhea, ROTH bisquit Allergy (Unknown, Uncoded 06/10/24 10:12) sneeze mold Allergy (Unknown, Uncoded 06/10/24 10:12) unknown yeast Allergy (Unknown, Uncoded 06/10/24 10:12) unknown HPI HPI Comments History of Present Illness Details She presents to office with palpitations Works at [employer] and it is stressful She said working this week on Wednesday with increased stress She felt tightness in L side of back and under L breast tightness She has hx of feeling tightness in this area with stress 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 Was able to go for a walk but felt slight SOB She had no other episodes yesterday or today She had an upset stomach last night but better today Denies known heart issues Denies family cardiac hx Denies smoking hx No pain currently, 0/10 When she has pain its tightness She said relieved when rests and gets away from stressful environment at work [facility] Medical History Foot pain, bilateral Allergies Sensorineural hearing loss Surgical History No pertinent past surgical history Family History Father No problems noted. Mother No problems noted. Social History (Updated 11/29/23 @ 08:33 by CAITY Caro) Housing: Apartment Alcohol intake: never Patient Tobacco Use Status: Never used Tobacco e-Cigarette/Vaping Use: Never Used Second Hand Smoke Exposure: No service: No Current occupational status: employed Cognitive needs: No Hearing needs: Yes Vision needs: Yes Review of Systems Const Denies chills, Reports fatigue, Denies fever(s) and Denies headache(s) Eyes Denies blurry vision ENT Denies dizziness, Denies otalgia, Denies headache(s), Denies sinus pressure and Denies sore throat Card Denies chest pain ( tightness when she is stressed in L side inferior to breast and in back), Denies leg edema, Denies palpitations, Reports dyspnea and Denies dyspnea on exertion Resp Denies chest congestion, Denies cough, Denies hemoptysis, Reports dyspnea and Denies dyspnea on exertion GI Denies abdominal pain, Denies constipation, Reports diarrhea (last night which resolved), Denies nausea and Denies vomiting Musc Reports back pain (associated with chest tightness every time she has episodes) and Denies myalgias Skin/Breast Denies rash and Reports skin pain (chest wall pain when she gets tightness to palpation) Neuro Denies dizziness and Denies headache(s) Psych Reports other (stress at work) Endo Reports fatigue and Denies palpitations Physical Exam Vital Signs: Last Vital Signs Temp 97.7 F 06/10/24 09:57 Pulse 90 06/10/24 09:57 BP 102/72 06/10/24 09:57 Pulse Ox 100 06/10/24 09:57 Oxygen Delivery Method Room Air 06/10/24 09:57 BMI result Body Mass Index 25.5 General: Non-toxic, NAD. Speaking full sentences. Skin: Warm dry throughout No chest wall or back ecchymosis or vesicular rash Eye: EOMI HENT: Airway patent. Uvula midline. No pharyngeal erythema or edema. 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 Bilateral canals clear. TM non-erythematous, non-bulging. No TM perforation or hemotympanum noted. Respiratory: CTA bilaterally. No wheezes, rales or rhonchi Cardiac: RRR. No murmur. + inferior breast L side chest wall tenderness to palpation over approx 4th rib midclavicular region and associated intercostal space in same region MSK: Ni midline spinal tenderness but + tenderness to palpation L lower trapezi us muscle. Full ROM extremities. Neurology: A/O. No aphasia or facial droop. Gait without abnormality Psych: Good mood and affect Assessment & Plan Assessment & Plan (1) Heart palpitations: Code(s): R00.2 - Palpitations Plan: Patient seen and evaluated. EKG: normal sinus rythm. No STEMI or ischemic changes noted Pt has had intermittent pain all week without ischemic changes on ekg No symptoms x 2 days and vitals and exams wnl Discussed we can not rule out cardiac origin due to no troponin obtained and the only way to do that would be the ed but pt declined She will monitor symptoms and if they occur again, she will seek ER evaluation while symptomatic We discussed ways to reduce stress Patient gave verbal understanding and had no additional questions or concerns at time of discharge All questions answered (2) Stress: Code(s): F43.9 - Reaction to severe stress, unspecified Plan: dietitian Coding Level of Care Code Est Pt Level 3 (74077) Diagnoses Heart palpitations R00.2 Stress F43.9
== END 2024-06-10 10:27 | disposition home or self-care (01) ==
PROVIDERS: PCP Internal Medicine; Visit Provider Physician Assistant
DX: R00.2 Palpitations (principal); F43.9 Reaction to severe stress, unspecified

== ENCOUNTER → 2024-06-10 09:46 | Outpatient (BNVA) | payer OTHER, SELFPAY | PROVIDERS: PCP Internal Medicine; Visit Provider Physician Assistant | DX: R00.2 Palpitations (principal); F43.9 Reaction to severe stress, unspecified | CPT/HCPCS: 99212 ==

== ENCOUNTER 2024-06-22 08:52 | Outpatient (AMB) | payer OTHER, SELFPAY ==
--- NOTE | 2024-06-22 08:46 | A.OFFPC_ITS ---
Intake Visit Reasons: Talk about work note Allergies codeine Adverse Reaction (Intermediate, Verified 06/10/24 10:12) Nausea/Vomiting prednisone Adverse Reaction (Intermediate, Verified 06/10/24 10:12) diarrhea, ROTH bisquit Allergy (Unknown, Uncoded 06/10/24 10:12) sneeze mold Allergy (Unknown, Uncoded 06/10/24 10:12) unknown yeast Allergy (Unknown, Uncoded 06/10/24 10:12) unknown Medication List - Last Reconciled 06/22/24 by Joey Miller MD No Known Home Meds Tobacco use date assessed: 10/22/23 Dental Screening Dental Screen Date: 10/22/23 HPI Talk about work note HPI Details Patient is 58 year old female, with hearing impairment she does wear hearing aids but sometimes they dont work properly she has difficulty interacting with [employer] at her Job and if she must that cause anxiety attach and Palpitations she was referred to Psych and therapy, which she did for a while then she was transferred to [employer] dept and she got better as there was not much customer interaction 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 Mother No problems noted. Social History Housing: Apartment Alcohol intake: never Patient Tobacco Use Status: Never used Tobacco e-Cigarette/Vaping Use: Never Used Second Hand Smoke Exposure: No service: No Current occupational status: employed Cognitive needs: No Hearing needs: Yes Vision needs: Yes Questionnaire Thrive Questionnaire Date Thrive assessed: 04/22/22 JAC-7 AMB Questionnaire JAC-7 Date JAC - 7 assessed: 04/22/22 Source: Developed by Drs. Edd Gates, Ashleigh Gaspar, Felipe Forbes and colleagues, with an educational zain from [employer]. Review of Systems Const Denies chills and Denies fever(s) ENT Denies epistaxis and Denies nasal discharge Card Denies chest pain Resp Denies chest congestion, Denies cough and Denies hemoptysis GI Denies diarrhea and Denies nausea Skin/Breast Denies rash Neuro Reports no additional complaints Psych Reports no additional complaints Endo Reports no additional complaints Physical exam (Primary Care) Tobacco/Smoking Status: Tobacco use Status Tobacco use date assessed 10/22/23 06/22/24 08:46 Patient Tobacco Use Status Never used Tobacco 06/22/24 08:46 e-Cigarette/Vaping Use Never Used 06/22/24 08:46 Thrive Assessment: Date of Thrive Assessment Date Thrive assessed 04/22/22 06/22/24 08:46 Telehealth Telehealth Telehealth Platform: [employer] Location of provider rendering services: practice address Location of patient: address on file Patient Identification confirmed using: Name, : Yes Telehealth method: video Patient verbally consented to treatment: Yes Patient verbally consented to billing insurance company: Yes Patient informed of any privacy concerns related to visit: Yes Minutes spent on Phone/Video with Pt.: 14 Coding Level of Care Code Tele Est Pt Level 3 (52114) Diagnoses Other specified hearing loss of both ears H91.8X3 Hearing loss type: other Laterality: bilateral Panic anxiety syndrome F41.0 Stress at work Z56.6 Heart palpitations R00.2 Assessment & Plan Assessment & Plan (1) Hearing impaired: Code(s): H91.90 - Unspecified hearing loss, unspecified ear Category: Medical Qualifiers: Hearing loss type: other Laterality: bilateral Qualified Code(s): H91.8X3 - Other specified hearing loss, bilateral (2) Panic anxiety syndrome: Code(s): F41.0 - Panic disorder [episodic paroxysmal anxiety] Category: Medical (3) Stress at work: Code(s): Z56.6 - Other physical and mental strain related to work Category: Social Hx (4) Heart palpitations: Code(s): R00.2 - Palpitations Category: Medical Plan Patient is 58 year old female, with hearing impairment she does wear hearing aids but sometimes they dont work properly she has difficulty interacting with [employer] at her Job and if she must that cause anxiety attach and Palpitations she was referred to Psych and therapy, which she did for a while then 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
== END 2024-06-22 09:55 | disposition home or self-care (01) ==
LOC: HO.HMCC 08:52
PROVIDERS: PCP Internal Medicine; Visit Provider Internal Medicine
DX: H91.8X3 Other specified hearing loss, bilateral (principal); F41.0 Panic disorder [episodic paroxysmal anxiety]; Z56.6 Other physical and mental strain related to work; R00.2 Palpitations

== ENCOUNTER → 2024-06-22 08:52 | Outpatient (BNVA) | payer OTHER, SELFPAY | PROVIDERS: PCP Internal Medicine; Visit Provider Internal Medicine ==

== ENCOUNTER 2024-06-24 13:53 | Outpatient (AMB) | payer OTHER, SELFPAY ==
[2024-06-24 13:54] VITALS: BP 110/70; PULSE 93; O2SAT 99; BMI 25.5
--- NOTE | 2024-06-24 13:54 | AM.OFFWIN_ITS ---
Intake Vital Signs 06/24/24 13:54 Height 5 ft 1 in Weight 135 lb BMI 25.5 BP 110/70 Blood Pressure Location Rt brachial Position Sitting Pulse 93 Pulse Source Pulse Oximeter Pulse Oximetry (%) 99 Oxygen Delivery Method Room Air Intake Visit Reasons: EP- TSP strain Intake Note: pt is here for c/o back strain Patient Tobacco Use Status: Never used Tobacco Allergies codeine Adverse Reaction (Intermediate, Verified 06/24/24 14:05) Nausea/Vomiting prednisone Adverse Reaction (Intermediate, Verified 06/24/24 14:05) diarrhea, ROTH bisquit Allergy (Unknown, Uncoded 06/10/24 10:12) sneeze mold Allergy (Unknown, Uncoded 06/10/24 10:12) unknown yeast Allergy (Unknown, Uncoded 06/10/24 10:12) unknown Medication List - Last Reconciled 06/24/24 by BRADEN Banks No Known Home Meds Do you need a note to return to daycare/school/sports/work: No HPI HPI Comments History of Present Illness0 Details Pleasant 58-year-old female here today with complaints of recurrent upper back strain that started a few days ago. She reports that she was exposed to repetitive movements and this is what caused a strain of her left upper back. She has been using ice and ibuprofen which does seem to help. She also has been soaking in hot showers. However heavy lifting, repetitive motions and overhead activity seem to worsen her symptoms. She denies any overt trauma. Denies any red flag symptoms associated with back pain. Exam Awake alert oriented no acute distress Neck full range of motion Pain with palpation over the thoracic spine, with paraspinal tenderness on the left Neuro exam within normal limits Plan Asked patient if she would like to proceed with x-rays. She does not think that this is necessary. She did miss work today. She does have to work again tomorrow. I will provide her with a note for today and a note that says she can be out tomorrow however if she feels up to working she can return to work. Continue to take ibuprofen to help with the pain. I have sent in a prescription for lidocaine patches as well as a low-dose muscle relaxer to use sparingly. Avoid repetitive movements are activities that exacerbate. Advised for patient to follow up with primary care as she may benefit from physical therapy given the recurrence. This note is constructed using voice recognition software. While every effort has been made to ensure accuracy in telephone claims representative, still errors may have been included Sometimes, these errors may affect the content or meaning of the given sentence . [facility] Medical History Foot pain, bilateral Allergies Sensorineural hearing loss Surgical History No pertinent past surgical history Family History Father No problems noted. Mother No problems noted. Social History Housing: Apartment Alcohol intake: never Patient Tobacco Use Status: Never used Tobacco e-Cigarette/Vaping Use: Never Used Second Hand Smoke Exposure: No service: No Current occupational status: employed Cognitive needs: No Hearing needs: Yes Vision needs: Yes Physical Exam Vital Signs: Last Vital Signs Pulse 93 06/24/24 13:54 BP 110/70 06/24/24 13:54 Pulse Ox 99 06/24/24 13:54 Oxygen Delivery Method Room Air 06/24/24 13:54 BMI result Body Mass Index 25.5 Assessment & Plan Assessment & Plan (1) Upper back pain on left side: Code(s): M54.9 - Dorsalgia, unspecified Plan: . Medications: New tizanidine (Zanaflex) 2 mg (1/2 x 4 mg) PO BID 5 days PRN 5 tabs 0RF muscle spasticity lidocaine 4% on for 12 hours, off for 12 hours, apply to affected area as needed for pain 1 patch topical DAILY PRN 30 ea 0RF pain Patient Instructions: . Coding Level of Care Code Est Pt Level 3 (75642) Diagnoses Upper back pain on left side M54.9
== END 2024-06-24 14:17 | disposition home or self-care (01) ==
PROVIDERS: PCP Internal Medicine; Visit Provider Nurse Practitioner Family
DX: M54.9 Dorsalgia, unspecified (principal)

== ENCOUNTER → 2024-06-24 13:53 | Outpatient (BNVA) | payer OTHER, SELFPAY | PROVIDERS: PCP Internal Medicine; Visit Provider Nurse Practitioner Family | DX: M54.9 Dorsalgia, unspecified (principal) | CPT/HCPCS: 99212 ==

== ENCOUNTER 2024-06-28 09:31 | Emergency (ER) | payer OTHER, SELFPAY ==
--- NOTE | ~2024-06-28 | XR_ITS ---
EXAMINATION: XR CHEST CLINICAL INFORMATION: Patient states chest tightness. COMPARISON: 05/20/2022. TECHNIQUE: 2 views of the chest were obtained. FINDINGS: There is no gross pneumothorax. Lungs are well inflated. Heart size is normal. No significant pleural effusion. Degenerative changes in the thoracic spine. No new focal consolidation. XR/XR chest 2V IMPRESSION: No new focal consolidation to suggest pneumonia. This study was presented today, June 28, 2024, for interpretation. Stat results provided at this time as requested by referring provider. Electronically signed by: Odalys Booker MD 06/28/2024 12:42 PM [facility]
--- NOTE | 2024-06-28 09:36 | ECG_ITS ---
Test Reason : chest discomfront Blood Pressure : / mmHG Vent. Rate : 081 BPM Atrial Rate : 081 BPM P-R Int : 158 ms QRS Dur : 084 ms QT Int : 410 ms P-R-T Axes : 071 022 047 degrees QTc Int : 476 ms Normal sinus rhythm Low voltage QRS Nonspecific T wave abnormality Abnormal ECG When compared with ECG of 25-JUL-2022 11:03, QT has lengthened Referred By: Generic ED Physician Electronically Signed By:PIERO LU MD
[2024-06-28 09:54] VITALS: BP 142/73; PULSE 87; RESP 16; TEMP 35.9; O2SAT 98; BMI 25.7
[2024-06-28 10:37] LABS: MANUAL DIFF FLAG NO
[2024-06-28 10:38] LABS: Basophils Percent Auto 0.2 % (0-2); Eosinophils Percent Auto 0.5 % (0-4); Hemoglobin 14.4 g/dl (12.0-16.0); Imm Gran Abs Auto 0.01 X10*3/uL (0.00-0.03); Imm Gran Pct Auto 0.2 % (0.0-0.4); Lymphocytes Absolute Auto 1.1 X10*3/uL (1.2-4.9); Lymphocytes Percent Auto 19.4 % (20-40); Mean Corpuscular HGB Conc 35.1 g/dl (31.0-35.0); Mean Corpuscular Hemoglobin 29.6 pg (27.0-33.0); Mean Corpuscular Volume 84.2 fL (80.0-98.0); Mean Platelet Volume 9.8 fL (9.4-12.3); Monocytes Absolute Auto 0.3 X10*3/uL (0.1-1.2); Monocytes Percent Auto 4.3 % (2-11); Neutrophils Absolute Auto 4.4 x10*3/uL (2.0-8.3); Neutrophils Percent Auto 75.4 % (45-73); Platelet Count 151 X10*3/uL (160-400); Red Blood Count 4.87 X10*6/uL (4.20-5.50); Red Cell Distribution Width 11.9 % (11.0-16.0); White Blood Count 5.8 X10*3/uL (4.8-10.8)
[2024-06-28 11:02] LABS: Anion Gap 12 (12-20); Blood Urea Nitrogen 19 mg/dL (9-16); Calcium 9.4 mg/dL (8.4-10.2); Carbon Dioxide 28 mmol/L (22-29); Chloride 110 mmol/L (96-108); Creatinine Clr Calc Pharmacy 70.9; Estimated Glomerular Filt Rate > 60; Glucose Random 78 mg/dL (60-115); Sodium 146 mmol/L (135-145)
[2024-06-28 11:14] LABS: Troponin-I High Sensitivity < 2.7 ng/L (<3.5-17.0)
[2024-06-28 11:40] LABS: Lipase 53 U/L (8-78)
--- NOTE | 2024-06-28 13:45 | ED_ITS ---
HPI - Chest Pain General Chief Complaint: Chest Pain Stated Complaint: chest discomfort Time Seen by Provider: 06/28/24 13:45 Source: patient Mode of arrival: ambulatory Limitations: no limitations History of Present Illness HPI narrative: This is a 58-year-old woman with a past medical history of anxiety/depression, panic attack, tremor, heart palpitations who presents for evaluation of chest pain. Patient reports that she had chest pain while in the shower this morning. She reports pain was left-sided. She states no radiation of pain to back or abdomen. She reports no associated vomiting. She states no recent fevers. She reports she has allergies and has had a dry cough for few days. She states no chills, sputum production or hemoptysis. She states no pleuritic pain or exertional symptoms. She states no GI or symptoms. She states that she ate something and the pain resolved. Related Data Previous Rx's ?Medication ?Instructions ?Recorded lidocaine 4 % topical patch 1 patch topical DAILY PRN pain #30 06/24/24 ea tizanidine 4 mg tablet (Zanaflex) 2 mg (1/2 x 4 mg) PO BID PRN 06/24/24 muscle spasticity 5 days #5 tabs Allergies Allergy/AdvReac Type Severity Reaction Status Date / Time codeine AdvReac Intermediate Nausea/Vomi Verified 06/28/24 09:57 ting prednisone AdvReac Intermediate diarrhea, Verified 06/28/24 09:57 ROTH bisquit Allergy Unknown sneeze Uncoded 06/28/24 09:57 mold Allergy Unknown unknown Uncoded 06/28/24 09:57 yeast Allergy Unknown unknown Uncoded 06/28/24 09:57 Review of Systems 2 Review of Systems: ROS as per HPI [facility] Past Medical History Medical History Foot pain, bilateral Allergies Sensorineural hearing loss Surgical History No pertinent past surgical history Family History Family History Father No problems noted. Mother No problems noted. Social History Social History Housing: Apartment Alcohol intake: never Patient Tobacco Use Status: Never used Tobacco e-Cigarette/Vaping Use: Never Used Second Hand Smoke Exposure: No Advance Directives: No Advance Directives Information Provided: Yes Do you have a plan to hurt others: No Plan service: No Current occupational status: employed Cognitive needs: No Hearing needs: Yes Vision needs: Yes Physical Exam 2 Vital Signs: Vital Signs: Last Vital Signs Temp 96.6 F L 06/28/24 09:54 Pulse 87 06/28/24 09:54 Resp 16 06/28/24 09:54 BP 142/73 H 06/28/24 09:54 Pulse Ox 98 06/28/24 09:54 O2 Del Method Room Air 06/28/24 09:54 BMI result Body Mass Index 25.7 Gen: NAD, AOx3 HEENT: NCAT, EOMI, normal conjunctiva CV: RRR, no murmurs appreciated, no peripheral pitting edema Pulm: CTAB, no increased work of breathing GI: Soft, NTND, no rebound, guarding or rigidity Neuro: Grossly non focal MSK: No asymmetrical calf edema/TTP/erythema Medical Decision Making Medical Decision Making MDM Narrative: Differential diagnosis includes, but is not limited to ACS, gastritis, gastroesophageal reflux, pneumothorax. I have very low clinical suspicion for pancreatitis given lack of radiation of pain to the back, associated nausea/vomiting and resolution of pain. Patient is afebrile and hemodynamically stable on room air. Exam is benign and reassuring. I reviewed and interpreted labs, EKG and chest x-ray as below. On re-examination, patient is well-appearing and in no acute distress. ?Patient states symptoms have resolved. ?There is no indication for further emergent evaluation in this otherwise well-appearing patient as above. ?Patient is provided written and verbal instructions, educational materials, recommendations for outpatient follow-up, strict return precautions and teach back is performed. ?Patient states understanding and agreement with plan of care. ?Patient is discharged home in stable and improved condition. Admission/Observation Consideration of admission/observation: Escalation of care including admission/observation considered Lab Data MDM Lab Attestation statement: I reviewed the patient's lab results. I independently reviewed interpreted patient's CBC, metabolic panel, magnesium level, troponin and lipase, which are benign and reassuring. 06/28/24 10:33 06/28/24 10:33 Labs: Lab Results 06/28/24 Range/Units 10:33 WBC 5.8 (4.8-10.8) X10*3/uL RBC 4.87 (4.20-5.50) X10*6/uL Hgb 14.4 (12.0-16.0) g/dl Hct 41.0 (37.0-47.0) % MCV 84.2 (80.0-98.0) fL MCH 29.6 (27.0-33.0) pg MCHC 35.1 H (31.0-35.0) g/dl RDW 11.9 (11.0-16.0) % Plt Count 151 L (160-400) X10*3/uL MPV 9.8 (9.4-12.3) fL Immature Gran % (Auto) 0.2 (0.0-0.4) % Neut % (Auto) 75.4 H (45-73) % Lymph % (Auto) 19.4 L (20-40) % Tift % (Auto) 4.3 (2-11) % Eos % (Auto) 0.5 (0-4) % Baso % (Auto) 0.2 (0-2) % Lymph # (Auto) 1.1 L (1.2-4.9) X10*3/uL Tift # (Auto) 0.3 (0.1-1.2) X10*3/uL Eos # (Auto) 0.0 (0.0-0.4) X10*3/uL Baso # (Auto) 0.0 (0.0-0.2) X10*3/uL Abs Immat Gran (auto) 0.01 (0.00-0.03) X10*3/uL Absolute Neuts (auto) 4.4 (2.0-8.3) x10*3/uL Absolute Nucleated RBC 0.000 (0.0-0.012) X10*3/uL Nucleated RBC % (auto) 0.0 (0.0-0.2) /100WBC Sodium 146 H (135-145) mmol/L Potassium 4.0 (3.3-5.1) mmol/L Chloride 110 H (96-108) mmol/L Carbon Dioxide 28 (22-29) mmol/L Anion Gap 12 (12-20) BUN 19 H (9-16) mg/dL Creatinine 0.71 (0.5-1.4) mg/dL Estim Creat Clear Calc 70.9 Estimated GFR > 60 Random Glucose 78 (60-115) mg/dL Calcium 9.4 D (8.4-10.2) mg/dL Magnesium 2.0 (1.6-2.6) mg/dL Troponin I High Sens < 2.7 (<3.5-17.0) ng/L Lipase 53 (8-78) U/L Independent Interpretation I performed an independent interpretation of an: EKG and Plain X-Ray Interpretation: I independently reviewed and interpreted the patient's chest x-ray, which demonstrates no focal consolidation, pleural effusion or pneumothorax. I independently reviewed and interpreted the patient's EKG, which demonstrates a sinus rhythm at 81 beats per minute, CA 158, QRS 84, QTC 476, no STEMI. Radiology Impression Discussion of test interpretation with radiology: I have reviewed the radiologist's reading. Radiologist Impression: XR/XR chest 2V IMPRESSION: No new focal consolidation to suggest pneumonia. This study was presented today, June 28, 2024, for interpretation. Stat results provided at this time as requested by referring provider. Electronically signed by: Odalys Booker MD 06/28/2024 12:42 PM [facility] Dictated By: Odalys Booker MD Signed By: <Electronically signed by Odalys Booker MD in OV> 06/28/24 1242 Discharge Plan Discharge Clinical Impression: Chest pain Patient Disposition: Home, Self-Care Instructions: Chest Pain (DC) Additional Instructions: You were seen and evaluated in the emergency room. Your vital signs, EKG, blood work and chest x-ray were all very reassuring. Please follow-up with your primary care doctor in the next 5-7 days. Please call them to schedule a follow-up appointment. Return to the emergency room with any new, concerning or worsening symptoms. Prescriptions: No Action lidocaine 4 % adhesive patch,medicated 1 patch topical DAILY PRN (Reason: pain) Qty: 30 0RF Rx Instructions: on for 12 hours, off for 12 hours, apply to affected area as needed for pain tizanidine [Zanaflex] 4 mg tablet 2 mg PO BID PRN (Reason: muscle spasticity) 5 Days Qty: 5 0RF Print Language: Cymraes
[2024-06-28 14:20] VITALS: BP 142/73; PULSE 87; RESP 16; TEMP 35.9; O2SAT 98
== END 2024-06-28 14:20 | disposition home or self-care (01) ==
PROVIDERS: Physician Assistant Medical; Emergency Provider Emergency Medicine; PCP Internal Medicine
DX: R07.9 Chest pain, unspecified (principal)
CPT/HCPCS: 36415; 71046; 80048; 83690; 83735; 84484; 85025; 93005; 99283

== ENCOUNTER → 2024-06-28 09:36 | Outpatient (BNV) | payer OTHER, SELFPAY | PROVIDERS: Emergency Provider Emergency Medicine; PCP Internal Medicine; Visit Provider Internal Medicine Cardiovascular Disease | DX: R94.31 Abnormal electrocardiogram [ECG] [EKG] (principal) | CPT/HCPCS: 93010 ==

== ENCOUNTER 2024-07-10 09:46 | Outpatient (AMB) | payer OTHER, SELFPAY ==
--- NOTE | 2024-07-10 10:31 | AM.OFFWIN_ITS ---
Intake Vital Signs 07/10/24 10:32 Height 5 ft 1 in Weight 136 lb 2 oz BMI 25.7 BP 114/80 Blood Pressure Location Rt brachial Position Sitting Pulse 97 Pulse Source Pulse Oximeter Temp 98.0 F Temp Source Temporal Artery Scan Pulse Oximetry (%) 98 Oxygen Delivery Method Room Air Intake Visit Reasons: EP ear vibrations due to hearing aids Intake Note: Pt presents to the office today for ear vibrations due to her hearing aids. Pt states she went to her hearing aid doctor and got new hearing aids which has started giving her vibrations even when she isn't using her new hearing aids. Patient Tobacco Use Status: Never used Tobacco Allergies codeine Adverse Reaction (Intermediate, Verified 07/10/24 10:33) Nausea/Vomiting prednisone Adverse Reaction (Intermediate, Verified 07/10/24 10:33) diarrhea, ROTH bisquit Allergy (Unknown, Uncoded 07/10/24 10:33) sneeze mold Allergy (Unknown, Uncoded 07/10/24 10:33) unknown yeast Allergy (Unknown, Uncoded 07/10/24 10:33) unknown HPI HPI Comments History of Present Illness Details Patient is a 58-year-old female complaining of vibrations and bilateral ears on and off for the last few weeks but it has gotten worse in the last week. She tells me she has 2 sets of hearing aids, the 1st set she got a long time ago but they never really worked well for her, the other set she is currently having adjusted at the [facility] in [place]. She states the left ear was too big so it is currently getting adjusted. She states she has used 2 different kinds of hearing aids and still having issues. She told me that the multicultural services librarian told her there was nothing else they could do for her and that she needs to go see an public records researcher. She denies any pain in her ears or change in hearing or fevers. [facility] Medical History Foot pain, bilateral Allergies Sensorineural hearing loss Surgical History No pertinent past surgical history Family History Father No problems noted. Mother No problems noted. Social History Housing: Apartment Alcohol intake: never Patient Tobacco Use Status: Never used Tobacco e-Cigarette/Vaping Use: Never Used Second Hand Smoke Exposure: No service: No Current occupational status: employed Cognitive needs: No Hearing needs: Yes Vision needs: Yes Review of Systems Const All systems reviewed & are unremarkable except as noted in HPI and below Physical Exam Vital Signs: Last Vital Signs Temp 98.0 F 07/10/24 10:32 Pulse 97 07/10/24 10:32 BP 114/80 07/10/24 10:32 Pulse Ox 98 07/10/24 10:32 Oxygen Delivery Method Room Air 07/10/24 10:32 BMI result Body Mass Index 25.7 Const General: cooperative, healthy appearing, comfortable and no acute distress Orientation/consciousness: patient oriented x3 HEENT Head: Yes normal to inspection, Yes No palpable skull fracture present and Yes normocephalic Ears: hearing grossly normal bilaterally, external ears normal, TM normal on the left, EAC's normal, mastoids normal (no TTP) bilaterally and TM abnormal wth effusion (right), erythematous and with loss of landmarks General nose exam: Normal external nose present Face and sinus: Yes normal facial exam Mouth: Normal oral and palatal mucosa present Teeth and gingiva: dentition normal Throat: Yes posterior oropharynx normal Eyes General: appearance normal, both eyes and all related structures Neck Neck: Yes normal visual inspection, Yes full ROM, Yes no lymphadenopathy, Yes no meningeal signs, Yes trachea midline and Yes supple Resp Effort & Inspection: normal respiratory effort and able to speak in complete sentences Skin General skin exam: no rashes or lesions noted Neuro General: patient oriented x3 and no meningeal signs Assessment & Plan Assessment & Plan (1) Otitis media of right ear: Code(s): H66.91 - Otitis media, unspecified, right ear Qualifiers: Otitis media type: suppurative Chronicity: acute Recurrence: non-recurrent Spontaneous tympanic membrane rupture: without spontaneous rupture Qualified Code(s): H66.001 - Acute suppurative otitis media without spontaneous rupture of ear drum, right ear Plan: We will treat with amoxicillin, also recommended she add an a daily allergy pill as she may have some excess fluid that is contributing to her ?vibration symptoms ?advised if she takes the amoxicillin in fall and uses an allergy pill for the next 10-14 days and she still has symptoms that she should follow up with her primary care doctor for a referral to ENT doctor. Plan See above Medications: New amoxicillin 875 mg PO Q12H 14 tabs 0RF Coding Level of Care Code Est Pt Level 3 (27682) Diagnoses Non-recurrent acute suppurative otitis media of right ear without spontaneous rupture of tympanic membrane H66.001 Otitis media type: suppurative Chronicity: acute Recurrence: non-recurrent Spontaneous tympanic membrane rupture: without spontaneous rupture
[2024-07-10 10:32] VITALS: BP 114/80; PULSE 97; TEMP 36.7; O2SAT 98; BMI 25.7
== END 2024-07-10 11:22 | disposition home or self-care (01) ==
PROVIDERS: PCP Internal Medicine; Visit Provider Physician Assistant
DX: H66.001 Acute suppurative otitis media without spontaneous rupture of ear drum, right ear (principal)

== ENCOUNTER → 2024-07-10 09:46 | Outpatient (BNVA) | payer OTHER, SELFPAY | PROVIDERS: PCP Internal Medicine; Visit Provider Physician Assistant | DX: H66.001 Acute suppurative otitis media without spontaneous rupture of ear drum, right ear (principal) | CPT/HCPCS: 99212 ==

== ENCOUNTER 2024-07-27 07:15 | Emergency (ER) | payer OTHER, SELFPAY ==
[2024-07-27 07:20] VITALS: BP 152/84; PULSE 102; O2SAT 99
--- NOTE | 2024-07-27 07:23 | ECG_ITS ---
Test Reason : cp Blood Pressure : / mmHG Vent. Rate : 086 BPM Atrial Rate : 086 BPM P-R Int : 162 ms QRS Dur : 090 ms QT Int : 354 ms P-R-T Axes : 070 033 024 degrees QTc Int : 423 ms Normal sinus rhythm with sinus arrhythmia Low voltage QRS Borderline ECG When compared with ECG of 28-JUN-2024 09:49, No significant change was found Referred By: Generic ED Physician Electronically Signed By:Aram Gonzales
[2024-07-27 07:25] VITALS: BP 121/66; PULSE 104; RESP 18; TEMP 36.9; O2SAT 99; BMI 25.5
--- NOTE | 2024-07-27 07:25 | ED.GENADULT ---
HPI - General Adult General Chief complaint: Chest Pain Stated complaint: PALPITATIONS,? NEW MED PER EMS Time Seen by Provider: 07/27/24 07:24 Source: patient and EMS Mode of arrival: EMS Limitations: no limitations History of Present Illness ED Provider: Brenda Carter PA-C HPI narrative: Patient is a 58 year old assigned female at with a history of hearing loss, anxiety, and panic attacks presenting to the emergency department today with with palpations. Patient states that she has had a left ear infection for the last week and has been on Doxycycline. Patient states that late last night she had pork chops for dinner and after began to have an upset stomach. Patient states that she woke up with palpations and is concerned it is related to her doxycycline. Patient denies any dizziness, lightheadedness, abdominal pain, nausea, vomiting, fever, chills, blurry vision, double vision, loss of vision, chest pain, difficulty breathing, shortness of breath, back pain, night sweats, pain with urination, increased urinary frequency, increased urinary urgency, blood in her urine or stool, syncope or a near syncopal episode, recent trauma or falls, bowel incontinence, bladder incontinence, or any other complaints at this time. Relieving factors: none Exacerbating factors: none Associated symptoms: denies other symptoms Treatments prior to arrival: none Related Data Previous Rx's ?Medication ?Instructions ?Recorded lidocaine 4 % topical patch 1 patch topical DAILY PRN pain #30 06/24/24 ea tizanidine 4 mg tablet (Zanaflex) 2 mg (1/2 x 4 mg) PO BID PRN 06/24/24 muscle spasticity 5 days #5 tabs amoxicillin 875 mg tablet 875 mg PO Q12H #14 tabs 07/10/24 Allergies Allergy/AdvReac Type Severity Reaction Status Date / Time chocolate Allergy Unknown Verified 07/27/24 07:32 lactase [From Dairy Aid] Allergy Stomach Verified 07/27/24 07:32 Upset codeine AdvReac Intermediate Nausea/Vomi Verified 07/10/24 10:33 ting prednisone AdvReac Intermediate diarrhea, Verified 07/10/24 10:33 ROTH bisquit Allergy Unknown sneeze Uncoded 07/10/24 10:33 mold Allergy Unknown unknown Uncoded 07/10/24 10:33 yeast Allergy Unknown unknown Uncoded 07/10/24 10:33 Review of Systems Constitutional: Constitutional: Reports no additional constitutional complaints, Denies chills, Denies fever(s) and Denies night sweats Eyes: Eyes: Reports no additional eye complaints, Denies blurry vision, Denies change in vision, Denies diplopia, Denies eye discharge, Denies loss of vision and Denies eye pain ENT: Denies dizziness Cardiovascular: Cardiovascular: Reports no additional cardiovascular complaints, Denies chest pain, Denies lightheadedness, Denies Loss of Consciousness, Reports palpitations and Denies dyspnea Respiratory: Respiratory: Reports no additional respiratory complaints and Denies dyspnea Gastrointestinal: Gastrointestinal: Reports no additional gastrointestinal complaints, Denies abdominal pain, Denies melena, Denies hematochezia, Denies change in bowel habits and Denies change in stool character Genitourinary: Genitourinary: Denies hematuria, Denies urinary frequency, Denies dysuria, Denies urinary incontinence, Denies urinary hesitancy and Denies urinary urgency Musculoskeletal: Musculoskeletal: Reports no additional musculoskeletal complaints, Denies numbness and Denies tingling Neurologic: Denies dizziness, Denies loss of vision, Denies numbness and Denies tingling Psychiatric: Psychiatric: Reports no additional psychiatric complaints Endocrine: Endocrine: Reports no additional endocrine complaints and Reports palpitations Hematologic/Lymphatic: Hematologic/Lymphatic: Reports no additional hematologic/lymphatic complaints Allergic/Immunologic: Allergic/Immunologic: Reports no additional allergic/immunologic complaints [facility] Past Medical History Attestation statement: The following information was validated with the patient. Source: old records reviewed and nursing notes reviewed Medical History Encounter for general adult medical examination with abnormal findings Hospital discharge follow-up Atypical chest pain Tremor Strain of chest wall Foot pain, bilateral Encounter for screening laboratory testing for COVID-19 virus Well woman exam Encounter for routine gynecological examination Colon cancer screening Diarrhea Nausea & vomiting Indigestion Stomach upset Otitis media of right ear Blurring of vision Upper respiratory tract infection Upper respiratory tract infection Chapped lips Hearing impaired Hypoglycemia Stress Heart palpitations Premature ventricular complex Stress at work Allergies Sensorineural hearing loss Surgical History No pertinent past surgical history Family History Family History Father No problems noted. Mother No problems noted. Social History Social History Housing: Apartment Alcohol intake: never Patient Tobacco Use Status: Never used Tobacco Smoked in Last 30 Days: No e-Cigarette/Vaping Use: Never Used Second Hand Smoke Exposure: No Use of substances other than those prescribed or required for medical reasons: No Advance Directives: No Advance Directives Information Provided: Yes Patient : No service: No Current occupational status: employed Cognitive needs: No Hearing needs: Yes Vision needs: Yes Physical Exam ED Vital Signs: Vital Signs - 24 hr 07/27/24 07:25 07/27/24 09:27 07/27/24 09:28 Temperature 98.4 F 97.6 F 97.6 F Pulse Rate 104 H 88 88 Respiratory Rate 18 16 16 Blood Pressure 121/66 123/81 123/81 Pulse Oximetry 99 98 98 Oxygen Delivery Method Room Air Room Air Room Air BMI result Body Mass Index 25.5 Const General: cooperative, no acute distress, alert and awake Nutritional Appearance: well nourished Orientation/consciousness: patient oriented x3 Limitations: no limitations HENMT Head: Yes normal to inspection and Yes atraumatic Ears: hearing grossly normal bilaterally and external ears normal General nose exam: Normal external nose present, no nasal discharge noted and no epistaxis Face and sinus: Yes normal facial exam, No abrasion and No laceration Mouth: Normal oral and palatal mucosa present, no drooling and no muffled voice Eyes General: appearance normal, both eyes and all related structures Periorbital: periorbital findings normal Eyelids: Yes eyelids normal Conjunctivae: conjunctivae normal Pupils: Equal, round and reactive pupils present EOM: EOMs intact bilaterally Neck Neck: Yes normal visual inspection, Yes full ROM and Yes no lymphadenopathy Chest Chest palpation & inspection: normal inspection of the chest Resp Effort & Inspection: normal respiratory effort and able to speak in complete sentences Cardio Rate: regular rate Rhythm: regular rhythm GI Inspection: Yes normal to inspection Neuro General: patient oriented x3 and moves all extremities Cranial nerves: Yes Equal, round and reactive pupils present Cognition (Neuro): normal cognition Extrem General: Yes normal to inspection, Yes full ROM and Yes capillary refill normal Psych Appearance: grossly normal Mental Status: mental status grossly normal Affect: normal affect Attitude: cooperative Thought process: Normal thought process present Thought content: Normal thought content present Insight: Good insight present (Psych) Medical Decision Making Medical Decision Making [facility] Narrative: Patient is a 58 year old assigned female at with a history of hearing loss, anxiety, and panic attacks presenting to the emergency department today with with palpations. Patient's physical exam was unremarkable. Patient's blood work was unremarkable. Patient's EKG was unremarkable. I explained my physical exam findings as well as all test results to the patient. I answered all questions asked by the patient. Patient took a dose of doxy while in the department and did not have any palpitations or adverse reaction. I stressed the importance of the patient taking her medication as directed (either prescribed or as the over the counter packaging recommends). I stressed the importance of the patient following up with her primary care provider. I stressed the importance of the patient returning to the emergency department immediately if her symptoms were to worsen or if she were to develop any dizziness, shortness of breath, difficulty breathing, chest pain, blurry vision, loss of vision, nausea, vomiting, abdominal pain, fever, chills, back pain, or any other complaints. Patient verbalized agreement and understanding with this treatment plan and discharge. Differential Diagnosis Differential Diagnoses: The differential diagnosis associated with the presentation includes Palpitations Anxiety Admission/Observation Consideration of admission/observation: Escalation of care including admission/observation considered Patient would have been admitted to the hospital had her work up had any findings where hospital admission was appropriate and her clinical presentation warranted hospital admission. Lab Data [facility] Lab Attestation statement: I reviewed the patient's lab results. My interpretation of these results are in the [facility] Rationale portion of this note. 07/27/24 07:41 07/27/24 07:41 Labs: Lab Results 07/27/24 Range/Units 07:41 WBC 6.3 (4.8-10.8) X10*3/uL RBC 5.00 (4.20-5.50) X10*6/uL Hgb 14.4 (12.0-16.0) g/dl Hct 42.5 (37.0-47.0) % MCV 85.0 (80.0-98.0) fL MCH 28.8 (27.0-33.0) pg MCHC 33.9 (31.0-35.0) g/dl RDW 12.1 (11.0-16.0) % Plt Count 162 (160-400) X10*3/uL MPV 10.1 (9.4-12.3) fL Immature Gran % (Auto) 0.3 (0.0-0.4) % Neut % (Auto) 74.8 H (45-73) % Lymph % (Auto) 19.8 L (20-40) % [place] % (Auto) 3.8 (2-11) % Eos % (Auto) 1.0 (0-4) % Baso % (Auto) 0.3 (0-2) % Lymph # (Auto) 1.3 (1.2-4.9) X10*3/uL [place] # (Auto) 0.2 (0.1-1.2) X10*3/uL Eos # (Auto) 0.1 (0.0-0.4) X10*3/uL Baso # (Auto) 0.0 (0.0-0.2) X10*3/uL Abs Immat Gran (auto) 0.02 (0.00-0.03) X10*3/uL Absolute Neuts (auto) 4.7 (2.0-8.3) x10*3/uL Absolute Nucleated RBC 0.000 (0.0-0.012) X10*3/uL Nucleated RBC % (auto) 0.0 (0.0-0.2) /100WBC Sodium 144 (135-145) mmol/L Potassium 3.7 (3.3-5.1) mmol/L Chloride 112 H (96-108) mmol/L Carbon Dioxide 24 (22-29) mmol/L Anion Gap 12 (12-20) BUN 25 H (9-16) mg/dL Creatinine 0.76 (0.5-1.4) mg/dL Estim Creat Clear Calc 66.0 Estimated GFR > 60 Random Glucose 119 H (60-115) mg/dL Calcium 8.8 D (8.4-10.2) mg/dL Magnesium 2.0 (1.6-2.6) mg/dL Total Bilirubin 0.8 (0.0-1.0) mg/dL AST 21 (5-31) U/L ALT 25 (0-31) U/L Alkaline Phosphatase 76 (39-117) U/L Troponin I High Sens < 2.7 (<3.5-17.0) ng/L Total Protein 6.2 L (6.5-8.0) g/dL Albumin 4.0 (3.5-5.0) g/dL TSH 2.09 (0.32-4.0) uIU/mL Influenza Type A (PCR) NEGATIVE (Negative) Influenza Type B (PCR) NEGATIVE (Negative) RSV RNA Qual (PCR) NEGATIVE (Negative) SARS-CoV-2 RNA (RT-PCR) NEGATIVE (Negative) Independent Interpretation I performed an independent interpretation of an: EKG Interpretation: Vent. Rate: 086 BPM Atrial Rate: 086 BPM P-R Int: 162 ms QRS Dur: 090 ms QT Int: 354 ms P-R-T Axes: 070 033 024 degrees QTc Int: 423 ms Normal sinus rhythm with sinus arrhythmia Low voltage QRS Borderline ECG When compared with ECG of 28-JUN-2024 09:49, No significant change was found DD/ 0727 Independent Historian Clinical information obtained from an independent historian. History obtained from or confirmed by: EMS (EMS provided additional history and confirmed the history provided by the patient) Discharge Plan Discharge Clinical Impression: Palpitations Patient Disposition: Home, Self-Care Instructions: Heart Palpitations (DC) Additional Instructions: Your work up is reassuring. Follow up with your primary care provider. Return to the emergency department immediately if your symptoms worsen or if you develop any dizziness, shortness of breath, difficulty breathing, chest pain, blurry vision, loss of vision, nausea, vomiting, abdominal pain, fever, chills, back pain, or any other complaints. Prescriptions: No Action lidocaine 4 % adhesive patch,medicated 1 patch topical DAILY PRN (Reason: pain) Qty: 30 0RF Rx Instructions: on for 12 hours, off for 12 hours, apply to affected area as needed for pain tizanidine [Zanaflex] 4 mg tablet 2 mg PO BID PRN (Reason: muscle spasticity) 5 Days Qty: 5 0RF amoxicillin 875 mg tablet 875 mg PO Q12H Qty: 14 0RF Referrals: Joey Miller MD [Primary Care Provider] - Interventions: ED Discharge Assessment Last Done: 07/27/24 09:28 Discharge Date/Time: 07/27/24 09:33 Print Language: Slovenian
[2024-07-27 07:45] LABS: MANUAL DIFF FLAG NO
[2024-07-27 07:55] LABS: Basophils Percent Auto 0.3 % (0-2); Eosinophils Absolute Auto 0.1 X10*3/uL (0.0-0.4); Hematocrit 42.5 % (37.0-47.0); Hemoglobin 14.4 g/dl (12.0-16.0); Imm Gran Abs Auto 0.02 X10*3/uL (0.00-0.03); Imm Gran Pct Auto 0.3 % (0.0-0.4); Lymphocytes Absolute Auto 1.3 X10*3/uL (1.2-4.9); Lymphocytes Percent Auto 19.8 % (20-40); Mean Corpuscular HGB Conc 33.9 g/dl (31.0-35.0); Mean Corpuscular Hemoglobin 28.8 pg (27.0-33.0); Mean Platelet Volume 10.1 fL (9.4-12.3); Monocytes Absolute Auto 0.2 X10*3/uL (0.1-1.2); Monocytes Percent Auto 3.8 % (2-11); Neutrophils Absolute Auto 4.7 x10*3/uL (2.0-8.3); Neutrophils Percent Auto 74.8 % (45-73); Platelet Count 162 X10*3/uL (160-400); Red Cell Distribution Width 12.1 % (11.0-16.0); White Blood Count 6.3 X10*3/uL (4.8-10.8)
[2024-07-27 08:08] LABS: Alanine Aminotransferase 25 U/L (0-31); Alkaline Phosphatase 76 U/L (39-117); Anion Gap 12 (12-20); Aspartate Amino Transferase 21 U/L (5-31); Bilirubin Total 0.8 mg/dL (0.0-1.0); Blood Urea Nitrogen 25 mg/dL (9-16); Calcium 8.8 mg/dL (8.4-10.2); Carbon Dioxide 24 mmol/L (22-29); Chloride 112 mmol/L (96-108); Estimated Glomerular Filt Rate > 60; Glucose Random 119 mg/dL (60-115); Potassium 3.7 mmol/L (3.3-5.1); Sodium 144 mmol/L (135-145); Total Protein 6.2 g/dL (6.5-8.0)
[2024-07-27 08:10] LABS: Troponin-I High Sensitivity < 2.7 ng/L (<3.5-17.0)
[2024-07-27 08:24] LABS: TSH reflex Free T4 2.09 uIU/mL (0.32-4.0)
[2024-07-27 09:27] VITALS: BP 123/81; PULSE 88; RESP 16; TEMP 36.4; O2SAT 98
[2024-07-27 09:28] VITALS: BP 123/81; PULSE 88; RESP 16; TEMP 36.4; O2SAT 98
[2024-07-27 09:54] LABS: Influenza A PCR NEGATIVE (Negative); Influenza B PCR NEGATIVE (Negative); Resp Syncy Virus RNA Qual PCR NEGATIVE (Negative); SARS COV2 PCR INHOUSE NEGATIVE (Negative)
== END 2024-07-27 09:33 | disposition home or self-care (01) ==
PROVIDERS: Physician Assistant Medical; Emergency Provider Student in an Organized Health Care Education/Training Program; PCP Internal Medicine
DX: R07.89 Other chest pain (principal); R00.2 Palpitations; I49.8 Other specified cardiac arrhythmias; Z79.899 Other long term (current) drug therapy; Z03.818 Encounter for observation for suspected exposure to other biological agents ruled out
CPT/HCPCS: 0241U; 80053; 83735; 84443; 84484; 85025; 93005; 99283; 99285

== ENCOUNTER → 2024-07-27 07:23 | Outpatient (BNV) | payer OTHER, SELFPAY | PROVIDERS: Emergency Provider Student in an Organized Health Care Education/Training Program; PCP Internal Medicine; Visit Provider Internal Medicine Cardiovascular Disease | DX: R07.9 Chest pain, unspecified (principal) | CPT/HCPCS: 93010 ==

== ENCOUNTER 2024-08-05 16:39 | Emergency (ER) | payer OTHER, SELFPAY ==
--- NOTE | ~2024-08-05 | XR_ITS ---
EXAMINATION: XR CHEST CLINICAL INFORMATION: CP COMPARISON: None available. TECHNIQUE: 2 views of the chest were obtained. FINDINGS: No significant abnormality is noted involving the heart, lungs, mediastinum, bony thorax or soft tissues. XR/XR chest 2V IMPRESSION: Unremarkable examination. Electronically signed by: Jennifer Zayas MD 08/05/2024 06:26 PM [facility]
[2024-08-05 16:49] VITALS: BP 117/81; PULSE 93; RESP 16; TEMP 36.1; O2SAT 98; BMI 22.3
--- NOTE | 2024-08-05 16:52 | ED_ITS ---
HPI - General Adult General Chief complaint: Ear Problems Stated complaint: left ear ache/dizziness Time Seen by Provider: 08/05/24 21:24 Related Data Previous Rx's ?Medication ?Instructions ?Recorded lidocaine 4 % topical patch 1 patch topical DAILY PRN pain #30 06/24/24 ea tizanidine 4 mg tablet (Zanaflex) 2 mg (1/2 x 4 mg) PO BID PRN 06/24/24 muscle spasticity 5 days #5 tabs fluticasone propionate 50 1 spray intranasal DAILY 1 week 08/11/24 mcg/actuation nasal #16 grams spray,suspension (Flonase Allergy Relief) Allergies Allergy/AdvReac Type Severity Reaction Status Date / Time chocolate Allergy Unknown Verified 08/11/24 09:20 lactase [From Dairy Aid] Allergy Stomach Verified 08/11/24 09:20 Upset codeine AdvReac Intermediate Nausea/Vomi Verified 08/11/24 09:20 ting prednisone AdvReac Intermediate diarrhea, Verified 08/11/24 09:20 ROTH bisquit Allergy Unknown sneeze Uncoded 08/11/24 09:20 mold Allergy Unknown unknown Uncoded 08/11/24 09:20 yeast Allergy Unknown unknown Uncoded 08/11/24 09:20 PMFSH Past Medical History Medical History Encounter for general adult medical examination with abnormal findings Hospital discharge follow-up Atypical chest pain Tremor Strain of chest wall Foot pain, bilateral Encounter for screening laboratory testing for COVID-19 virus Well woman exam Encounter for routine gynecological examination Colon cancer screening Diarrhea Nausea & vomiting Indigestion Stomach upset Otitis media of right ear Blurring of vision Upper respiratory tract infection Upper respiratory tract infection Chapped lips Hearing impaired Hypoglycemia Stress Heart palpitations Premature ventricular complex Stress at work Allergies Sensorineural hearing loss Surgical History No pertinent past surgical history Family History Family History Father No problems noted. Mother No problems noted. Social History Social History Housing: Apartment Alcohol intake: never Patient Tobacco Use Status: Never used Tobacco e-Cigarette/Vaping Use: Never Used Second Hand Smoke Exposure: No service: No Current occupational status: employed Cognitive needs: No Hearing needs: Yes Vision needs: Yes Physical Exam ED Vital Signs: BMI result Body Mass Index 22.3 Course Course Course Narrative: This is an RME: Additional HPI, ROS, PE not included below will be deferred to primary provider. RME assessment and note performed by: Tiana Lewis PA-C This is a 61-[id number]-apx-female who presents to the ER with complaints of ongoing ear problems. Pt states that she was diagnosed with an ear infection, was started on oral antibiotics. She states that she d/c this antibiotic as she was getting adverse side effects. She states that she was then seen at her PCP and was placed on another antibiotic, which she was taking. Finished abx on wednesday, but still continued to have vibrations in her ears. Wednesday she went to an urgent care and was told that she did not have an infection in her ear, but had fluid in her ears, did not discharge her on any medications. Reports that she felt that the fluid in her ears was giving her heart palpitations. States that she has had fluid leaking out of her ears. Reports slight dizziness. Reporting decreased energy. Plan: Labs, EKG, CXR, further ER eval needed Reevaluation(s) Reevaluation #1: Patient left without completing treatment. Medical Decision Making Lab Data 08/05/24 17:21 08/05/24 17:21 Labs: Lab Results 08/05/24 Range/Units 17:21 WBC 7.5 (4.8-10.8) X10*3/uL RBC 4.62 (4.20-5.50) X10*6/uL Hgb 13.6 (12.0-16.0) g/dl Hct 39.1 (37.0-47.0) % MCV 84.6 (80.0-98.0) fL MCH 29.4 (27.0-33.0) pg MCHC 34.8 (31.0-35.0) g/dl RDW 12.0 (11.0-16.0) % Plt Count 172 (160-400) X10*3/uL MPV 10.1 (9.4-12.3) fL Immature Gran % (Auto) 0.3 (0.0-0.4) % Neut % (Auto) 68.7 (45-73) % Lymph % (Auto) 24.8 (20-40) % [place] % (Auto) 5.4 (2-11) % Eos % (Auto) 0.5 (0-4) % Baso % (Auto) 0.3 (0-2) % Lymph # (Auto) 1.9 (1.2-4.9) X10*3/uL [place] # (Auto) 0.4 (0.1-1.2) X10*3/uL Eos # (Auto) 0.0 (0.0-0.4) X10*3/uL Baso # (Auto) 0.0 (0.0-0.2) X10*3/uL Abs Immat Gran (auto) 0.02 (0.00-0.03) X10*3/uL Absolute Neuts (auto) 5.1 (2.0-8.3) x10*3/uL Absolute Nucleated RBC 0.000 (0.0-0.012) X10*3/uL Nucleated RBC % (auto) 0.0 (0.0-0.2) /100WBC Sodium 144 (135-145) mmol/L Potassium 3.6 (3.3-5.1) mmol/L Chloride 111 H (96-108) mmol/L Carbon Dioxide 26 (22-29) mmol/L Anion Gap 11 L (12-20) BUN 23 H (9-16) mg/dL Creatinine 0.85 (0.5-1.4) mg/dL Estim Creat Clear Calc 63.3 Estimated GFR > 60 Random Glucose 75 (60-115) mg/dL Calcium 8.6 (8.4-10.2) mg/dL Magnesium 2.0 (1.6-2.6) mg/dL Total Bilirubin 0.9 (0.0-1.0) mg/dL Direct Bilirubin 0.3 (0.0-0.5) mg/dL AST 18 (5-31) U/L ALT 21 (0-31) U/L Alkaline Phosphatase 74 (39-117) U/L Troponin I High Sens < 2.7 (<3.5-17.0) ng/L Total Protein 6.0 L (6.5-8.0) g/dL Albumin 3.9 (3.5-5.0) g/dL TSH 2.14 (0.32-4.0) uIU/mL Discharge Plan Discharge Clinical Impression: Otitis externa Patient Disposition: Left W/O Completing Treatment Prescriptions: No Action lidocaine 4 % adhesive patch,medicated 1 patch topical DAILY PRN (Reason: pain) Qty: 30 0RF Rx Instructions: on for 12 hours, off for 12 hours, apply to affected area as needed for pain tizanidine [Zanaflex] 4 mg tablet 2 mg PO BID PRN (Reason: muscle spasticity) 5 Days Qty: 5 0RF fluticasone propionate [Flonase Allergy Relief] 50 mcg/actuation spray,suspension 1 spray intranasal DAILY 7 Days Qty: 16 0RF Rx Instructions: administer into each nostril Discharge Date/Time: 08/05/24 21:35
[2024-08-05 17:26] LABS: MANUAL DIFF FLAG NO
[2024-08-05 17:38] LABS: Basophils Percent Auto 0.3 % (0-2); Eosinophils Percent Auto 0.5 % (0-4); Hematocrit 39.1 % (37.0-47.0); Hemoglobin 13.6 g/dl (12.0-16.0); Imm Gran Abs Auto 0.02 X10*3/uL (0.00-0.03); Imm Gran Pct Auto 0.3 % (0.0-0.4); Lymphocytes Absolute Auto 1.9 X10*3/uL (1.2-4.9); Lymphocytes Percent Auto 24.8 % (20-40); Mean Corpuscular HGB Conc 34.8 g/dl (31.0-35.0); Mean Corpuscular Hemoglobin 29.4 pg (27.0-33.0); Mean Corpuscular Volume 84.6 fL (80.0-98.0); Mean Platelet Volume 10.1 fL (9.4-12.3); Monocytes Absolute Auto 0.4 X10*3/uL (0.1-1.2); Monocytes Percent Auto 5.4 % (2-11); Neutrophils Absolute Auto 5.1 x10*3/uL (2.0-8.3); Neutrophils Percent Auto 68.7 % (45-73); Platelet Count 172 X10*3/uL (160-400); Red Blood Count 4.62 X10*6/uL (4.20-5.50); White Blood Count 7.5 X10*3/uL (4.8-10.8)
[2024-08-05 17:53] LABS: Alanine Aminotransferase 21 U/L (0-31); Albumin Level 3.9 g/dL (3.5-5.0); Alkaline Phosphatase 74 U/L (39-117); Anion Gap 11 (12-20); Aspartate Amino Transferase 18 U/L (5-31); Bilirubin Direct 0.3 mg/dL (0.0-0.5); Bilirubin Total 0.9 mg/dL (0.0-1.0); Blood Urea Nitrogen 23 mg/dL (9-16); Calcium 8.6 mg/dL (8.4-10.2); Carbon Dioxide 26 mmol/L (22-29); Chloride 111 mmol/L (96-108); Creatinine Clr Calc Pharmacy 63.3; Estimated Glomerular Filt Rate > 60; Glucose Random 75 mg/dL (60-115); Potassium 3.6 mmol/L (3.3-5.1); Sodium 144 mmol/L (135-145)
[2024-08-05 17:57] LABS: Troponin-I High Sensitivity < 2.7 ng/L (<3.5-17.0)
[2024-08-05 18:06] LABS: TSH reflex Free T4 2.14 uIU/mL (0.32-4.0)
[2024-08-05 21:01] VITALS: BP 109/74; PULSE 78; RESP 16; TEMP 36.3; O2SAT 98
--- NOTE | 2024-08-05 21:35 | PC.NURSE ---
Went in to re-eval pt for vitals. Pt asked when a provider will see her, explained to patient all test results are back, proivder has to review them and then evaluate patient, should not be too much longer. When walking another patient to their car, witnessed patient walking out of emergency department.multifocal lens inspector Trista made aware.
== END 2024-08-05 21:35 | disposition left against medical advice (07) ==
PROVIDERS: Physician Assistant Medical; Emergency Provider Emergency Medicine; PCP Internal Medicine
DX: H60.92 Unspecified otitis externa, left ear (principal)
CPT/HCPCS: 36415; 71046; 80048; 80076; 83735; 84443; 84484; 85025; 99283

== ENCOUNTER 2024-08-11 09:09 | Outpatient (AMB) | payer OTHER, SELFPAY ==
[2024-08-11 09:19] VITALS: BP 110/72; PULSE 98; TEMP 36.5; O2SAT 97
--- NOTE | 2024-08-11 09:19 | MHC.OFFWIV ---
Intake Vital Signs 08/11/24 09:19 Weight 135 lb BP 110/72 Blood Pressure Location Rt brachial Position Sitting Pulse 98 Pulse Source Pulse Oximeter Temp 97.7 F Temp Source Oral Pulse Oximetry (%) 97 Oxygen Delivery Method Room Air Intake Visit Reasons: EP fluid in the LT ear Intake Note: Patient here for left ear pain and chest congestion that has been present for about 1 month. Patient Tobacco Use Status: Never used Tobacco Allergies chocolate Allergy (Verified 08/11/24 09:20) Unknown lactase [From Dairy Aid] Allergy (Verified 08/11/24 09:20) Stomach Upset codeine Adverse Reaction (Intermediate, Verified 08/11/24 09:20) Nausea/Vomiting prednisone Adverse Reaction (Intermediate, Verified 08/11/24 09:20) diarrhea, ROTH bisquit Allergy (Unknown, Uncoded 08/11/24 09:20) sneeze mold Allergy (Unknown, Uncoded 08/11/24 09:20) unknown yeast Allergy (Unknown, Uncoded 08/11/24 09:20) unknown Do you need a note to return to daycare/school/sports/work: No HPI HPI Comments History of Present Illness Details Patient is a 58yo F who presents with ear complaint She said she has had intermittent ear infections that have been treated here and at her PCP office Occuring over the last few months She said she noticed increased vibrating sensation in her left ear Denies pain associated, 0/10 She said slight ringing that is not bothersome She describes the sensation as vibrating No radiation of symptoms + URI symptoms of congestion but denies cough, SOB or CP No fever or chills Not taking anything for symptoms PFSH Medical History Encounter for general adult medical examination with abnormal findings Hospital discharge follow-up Atypical chest pain Tremor Strain of chest wall Foot pain, bilateral Encounter for screening laboratory testing for COVID-19 virus Well woman exam Encounter for routine gynecological examination Colon cancer screening Diarrhea Nausea & vomiting Indigestion Stomach upset Otitis media of right ear Blurring of vision Upper respiratory tract infection Upper respiratory tract infection Chapped lips Hearing impaired Hypoglycemia Stress Heart palpitations Premature ventricular complex Stress at work Allergies Sensorineural hearing loss Surgical History No pertinent past surgical history Family History Father No problems noted. Mother No problems noted. Social History Housing: Apartment Alcohol intake: never Patient Tobacco Use Status: Never used Tobacco e-Cigarette/Vaping Use: Never Used Second Hand Smoke Exposure: No service: No Current occupational status: employed Cognitive needs: No Hearing needs: Yes Vision needs: Yes Review of Systems Const Denies chills, Denies fever(s) and Denies headache(s) Eyes Denies change in vision ENT Denies dizziness, Reports otalgia (no pain but + vibrating L ear), Denies headache(s), Reports nasal discharge and Denies sinus pressure Card Denies syncope Resp Denies cough Musc Denies myalgias Neuro Denies dizziness, Denies syncope and Denies headache(s) Physical Exam Vital Signs: Last Vital Signs Temp 97.7 F 08/11/24 09:19 Pulse 98 08/11/24 09:19 BP 110/72 08/11/24 09:19 Pulse Ox 97 08/11/24 09:19 Oxygen Delivery Method Room Air 08/11/24 09:19 General: Non-toxic, NAD. Speaking full sentences. Skin: Warm dry throughout Eye: EOMI HENT: Airway patent. Uvula midline. No pharyngeal erythema or edema. 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 Bilateral canals clear. R TM non-erythematous, non-bulging. No TM perforation or hemotympanum noted. L TM + large yellow serous effusion without T erythema. bulging or perforation. No mastoid tenderness bilaterally. Respiratory: CTA bilaterally. No wheezes, rales or rhonchi Cardiac: RRR. No murmur MSK: Full ROM extremities. Neurology: Alert. No aphasia or facial droop. Gait without abnormality Psych: Good mood and affect Assessment & Plan Assessment & Plan (1) Acute effusion of left ear: Code(s): H65.192 - Other acute nonsuppurative otitis media, left ear Plan: Pt seen and evaluated No antibiotics warranted at this time Will give flonase for sinuses Discussed need to see PCP and maybe ENT for evaluation Work note given for today and tomorrow All questions answered at time of discharge and pt expressed verbal understanding Medications: New fluticasone propionate 50 mcg/actuation (Flonase Allergy Relief) administer into each nostril 1 spray intranasal DAILY 16 grams 0RF 1 week Coding Level of Care Code Est Pt Level 3 (03494) Diagnoses Acute effusion of left ear H65.192
== END 2024-08-11 09:45 | disposition home or self-care (01) ==
PROVIDERS: PCP Internal Medicine; Visit Provider Physician Assistant
DX: H65.192 Other acute nonsuppurative otitis media, left ear (principal)

== ENCOUNTER → 2024-08-11 09:09 | Outpatient (BNVA) | payer OTHER, SELFPAY | PROVIDERS: PCP Internal Medicine; Visit Provider Physician Assistant | DX: H65.192 Other acute nonsuppurative otitis media, left ear (principal) | CPT/HCPCS: 99212 ==

== ENCOUNTER 2024-08-30 09:20 | Outpatient (AMB) | payer OTHER, SELFPAY ==
--- NOTE | 2024-08-30 09:21 | MHC.OFFWIV ---
Intake Vital Signs 08/30/24 09:24 Height 5 ft 5 in Weight 135 lb BMI 22.5 BP 120/80 Blood Pressure Location Lt brachial Position Sitting Pulse 99 Pulse Source Pulse Oximeter Temp 97.6 F Temp Source Oral Pulse Oximetry (%) 98 Oxygen Delivery Method Room Air Intake Visit Reasons: EP recheck for ear fluid LT ear ?RT, ?Heartbeat Intake Note: Patient here for bilat ear vibration that has been present for about 2 weeks and was put on two rounds of antibiotic. Patient Tobacco Use Status: Never used Tobacco Allergies chocolate Allergy (Verified 08/30/24:) Unknown lactase [From Dairy Aid] Allergy (Verified 08/30/24:) Stomach Upset codeine Adverse Reaction (Intermediate, Verified 08/30/24:) Nausea/Vomiting prednisone Adverse Reaction (Intermediate, Verified 08/30/24:) diarrhea, ROTH bisquit Allergy (Unknown, Uncoded 08/30/24:) sneeze mold Allergy (Unknown, Uncoded 08/30/24:) unknown yeast Allergy (Unknown, Uncoded 08/30/24:) unknown Do you need a note to return to daycare/school/sports/work: No HPI HPI Comments History of Present Illness Details History of Present Illness - The patient is a 58-year-old female presenting with concerns regarding ear fluid clearance and anxiety medication side effects. - The patient previously experienced an episode of Acute Otitis Media, followed by fluid retention within the ear, which has now resolved. - A prescription for nasal spray was provided to address the fluid but discontinued due to side effects, such as severe headaches. - Anxiety management via hydroxyzine at 25 mg resulted in undesired somnolence impacting daily activities however pt states she has anxiety she is looking to manage, she feels her heart racing at times. Physical Exam General: Cooperative, healthy appearing, comfortable, no acute distress and well developed Orientation: Patient oriented x3 Limitations: No limitations Head: Normal to inspection Ears: Hearing reduced due to sensitivity, left TM slightly red but no fluid present, right TM normal Nose: Normal external nose present Face and sinus: Normal facial exam Eyes: Appearance normal, both eyes and all related structures Neck: Normal visual inspection and Yes full ROM Respiratory: Normal respiratory effort and able to speak in complete sentences. Skin: No rashes or lesions noted Neuro: Patient oriented x3 Extremities: Normal to inspection [facility] Medical History Encounter for general adult medical examination with abnormal findings Hospital discharge follow-up Atypical chest pain Tremor Strain of chest wall Foot pain, bilateral Encounter for screening laboratory testing for COVID-19 virus Well woman exam Encounter for routine gynecological examination Colon cancer screening Diarrhea Nausea & vomiting Indigestion Stomach upset Otitis media of right ear Blurring of vision Upper respiratory tract infection Upper respiratory tract infection Chapped lips Hearing impaired Hypoglycemia Stress Heart palpitations Premature ventricular complex Stress at work Allergies Sensorineural hearing loss Surgical History No pertinent past surgical history Family History Father No problems noted. Mother No problems noted. Social History Housing: Apartment Alcohol intake: never Patient Tobacco Use Status: Never used Tobacco e-Cigarette/Vaping Use: Never Used Second Hand Smoke Exposure: No service: No Current occupational status: employed Cognitive needs: No Hearing needs: Yes Vision needs: Yes Review of Systems Const All systems reviewed & are unremarkable except as noted in HPI and below Physical Exam Vital Signs: Last Vital Signs Temp 97.6 F 08/30/24 09:24 Pulse 104 H 08/30/24 09:24 BP 120/80 08/30/24 09:24 Pulse Ox 98 08/30/24 09:24 Oxygen Delivery Method Room Air 08/30/24 09:24 BMI result Body Mass Index 22.5 Assessment & Plan Assessment & Plan (1) Acute effusion of left ear: Code(s): H65.192 - Other acute nonsuppurative otitis media, left ear Plan: Appears resolved. The patient should discontinue the nasal spray for ear fluid, which is now resolved, to prevent adverse effects such as headaches. (2) Panic anxiety syndrome: Code(s): F41.0 - Panic disorder [episodic paroxysmal anxiety] Plan: For anxiety, hydroxyzine dosage has been reduced from 25mg to 10 mg to minimize drowsiness, with instructions for cautious initial use at home to assess tolerance. The adjusted plan aims to ensure effective symptom management while avoiding side effects affecting daily function. She should follow up with her PCP for future prescriptions of this medication or if her feelings of heart racing persist for further workup. Patient was informed and verbally consented to the use of an ambient scribe for clinic note documentation during this visit. Medications: New hydroxyzine HCl 10 mg PO Q6-8H PRN 7 tabs 0RF anxiety Coding Level of Care Code New Pt Level 4 (94765) Diagnoses Acute effusion of left ear H65.192 Panic anxiety syndrome F41.0
[2024-08-30 09:24] VITALS: BP 120/80; PULSE 99; TEMP 36.4; O2SAT 98; BMI 22.5
== END 2024-08-30 10:39 | disposition home or self-care (01) ==
PROVIDERS: PCP Internal Medicine; Visit Provider Physician Assistant
DX: F41.0 Panic disorder [episodic paroxysmal anxiety] (principal); H65.192 Other acute nonsuppurative otitis media, left ear

== ENCOUNTER → 2024-08-30 09:20 | Outpatient (BNVA) | payer OTHER, SELFPAY | PROVIDERS: PCP Internal Medicine; Visit Provider Physician Assistant | DX: H65.192 Other acute nonsuppurative otitis media, left ear (principal); F41.0 Panic disorder [episodic paroxysmal anxiety] | CPT/HCPCS: 99212 ==

== ENCOUNTER 2024-09-11 13:46 | Outpatient (REF) | payer OTHER, SELFPAY ==
--- NOTE | 2024-09-11 16:14 | MHC.AU.HA3 ---
Hearing Instrument Follow-Up- Binaural Date of Visit: 09/11/24 Right Ear: Make, Model, Color, Serial Number: Oticon Own 3 FS [id number] beige Ventilated Rib Fitter Repair Warranty: 04/16/2027 Ventilated Rib Fitter Loss and Damage Warranty: 04/16/2027 [facility] Service Plan: n/a Battery Size: 312 Type of Wax Guard: prowax minifit Dispensed By: [facility] Date of Fitting: some time last year per patient Left Ear: Make, Model, Color, Serial Number: Oticon Own 3 FS [id number] beige Ventilated Rib Fitter Repair Warranty: 04/16/2027 Ventilated Rib Fitter Loss and Damage Warranty: 04/16/2027 [facility] Service Plan: n/a Battery Size: 312 Type of Wax Guard: minifit prowax Dispensed By: [facility] Date of Fitting: some time last year per patient Follow-Up Summary: Katia is seen here for the first time, requesting increased volume on hearing aids. She reports she was previously seen at [facility] where she was fit with these hearing aids and subsequently discharged. She reports she has previous records but did not bring them today. She reports previous hearing test some time last year. Notes BTE was recommended but she prefers ITE. She reports that after initially having her hearing aids turned down at [facility], she would like the volume increased. She also notes that the left aid can be uncomfortable, noting canal is longer than her old [place] hearing aids which she does prefer and is wearing at the moment. Reports having had a bad ear infection in the left ear that is resolved but continues to feel vibration at times. Notes ENT appointment in December. 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 Cleaned and checked aids, replaced wax guards, listening check positive. Sanded canal of left aid slightly at patient request. Audiogram stored in hearing aids shows moderate to profound hearing loss Au. Found overall gain to be significantly under recommended gain. Increased gain 3 steps. Advised to return with the documents that she has from [facility] if in need of further adjustment. Recommendations: Recommendations: Hearing instrument follow-up or maintenance as needed. Diagnosis Code(s): Primary Diagnosis: H90.3 Bilateral Sensorineural Hearing Loss Signature: Provider: Sammi Patel, [facility]3]-A
== END 2024-09-11 13:47 | disposition home or self-care (01) ==
LOC: HO.HAP 13:46
PROVIDERS: Visit Provider Internal Medicine
DX: Z46.1 Encounter for fitting and adjustment of hearing aid (principal); H90.3 Sensorineural hearing loss, bilateral
CPT/HCPCS: 92593; 99499

== ENCOUNTER 2024-10-04 10:04 | Outpatient (REF) | payer OTHER, SELFPAY ==
--- NOTE | 2024-10-04 11:10 | MHC.AU.HA3 ---
Hearing Instrument Follow-Up- Binaural Date of Visit: 10/04/24 Right Ear: Make, Model, Color, Serial Number: Oticon Own 3 FS [id number] beige Pearl Hand Repair Warranty: 04/16/2027 [employer] Loss and Damage Warranty: 04/16/2027 [facility] Service Plan: n/a Battery Size: 312 Type of Wax Guard: prowax minifit Dispensed By: [facility] Date of Fitting: some time last year per patient Left Ear: Make, Model, Color, Serial Number: Oticon Own 3 FS [id number] beige Pearl Hand Repair Warranty: 04/16/2027 [employer] Loss and Damage Warranty: 04/16/2027 [facility] Service Plan: n/a Battery Size: 312 Type of Wax Guard: minifit prowax Dispensed By: [facility] Date of Fitting: some time last year per patient Follow-Up Summary: Katia reports the recent increase in volume has been good and she would like the aids turned up a little bit more. Increased overall gain 3 steps. Improvement reported. Katia has use of VC as needed. She brought records from [facility] today, previous audiogram and hearing aid info were copied. Recommendations: Recommendations: Hearing instrument follow-up or maintenance as needed. Diagnosis Code(s): Primary Diagnosis: H90.6 Mixed Hearing Loss, Bilateral Signature: Provider: Sammi Patel, [facility]
--- OUTSIDE RECORDS SUMMARY | 2024-10-04 11:53 | XMS_ITS | Clinical Summary ---
Author Organization [facility] Address [address] [place] [address] Care Team Providers Care Pharmacy Sales Representative Name Role Phone Joey Miller MD Primary Care Provider [phone] Surgical History Surgery Date Site/Laterality Comments OTHER SURGICAL HISTORY PROCEDURE: DENIES PREVIOUS SURGERY Medical History Medical History Date Comments Atypical chest pain DX:Atypical chest pain Functional dyspepsia DX:Function al dyspepsia Anxiety state DX:Anxiety state Functional dyspepsia DX:Function al dyspepsia Social History Tobacco Use Types Packs/Day Years Used Date Smoking Tobacco: Never Smokeless Tobacco: Never Alcohol Use Standard Drinks/Week Comments Never 0 (1 standard drink = 0.6 oz pur e alcohol) Comments Unknown Sex and Gender Information Value Date Recorded Sex Assigned at Not on file Legal Sex Female 10:44 PM EST Gender Identity Not on file Sexual Orientation Not on file Obstetrics History Last Filed Vital Signs Vital Sign Reading Time Taken Comments Blood Pressure 116/74 06/30/2022 8:18 AM EST Pulse 91 06/30/2022 8:18 AM EST Temperature - - Respiratory Rate - - Oxygen Saturation - - Inhaled Oxygen Concentration - - Weight 62.1 kg (137 lb) 08/18/2023 1:33 PM EST Height 154.9 cm (5' 1 ) 08/18/2023 1:33 PM EST Body Mass Index 25.89 08/18/2023 1:33 PM EST Plan of Treatment Health Maintenance Due Date Last Done Comments Breast Cancer Screening 1963 DTaP,Tdap,and Td Vaccines (1 - Tdap) 1982 Cervical Cancer Screening: P ap Smear 1984 Pneumococcal Vaccine: 50+ Ye ars (1 of 1 - PCV) 2013 Zoster Vaccines (1 of 2) 2013 Colorectal Cancer Screening: Colonoscopy 08/02/2022 Depression Screening 08/02/2022 HIV Screening 08/02/2022 Hepatitis C Screening 08/02/2022 Social Influencers of Health Screening 08/02/2022 COVID-19 Vaccine ( - 2023-2 5 season) 2024 Influenza Vaccine (#1) 2024 RSV Immunization Patients 60 + Years Old (1 - 1-dose 75+ series) 2038 HIB Vaccines Aged Out No longer eligi ble based on patient's age to complete this topic HPV Vaccines Aged Out No longer eligi ble based on patient's age to complete this topic Hepatitis A Vaccines Aged Out No long er eligible based on patient's age to complete this topic Hepatitis B Vaccines Aged Out No long er eligible based on patient's age to complete this topic IPV Vaccines Aged Out No longer eligi ble based on patient's age to complete this topic MMR Vaccines Aged Out No longer eligi ble based on patient's age to complete this topic Meningococcal ACWY Vaccine Aged Out N o longer eligible based on patient's age to complete this topic Meningococcal B Vacine Aged Out No lo nger eligible based on patient's age to complete this topic Pneumococcal Vaccine: Pediat rics (0 to 5 Years) and At-Risk Patients (6 to 64 Years) Aged Out No longer eligible b ased on patient's age to complete this topic RSV Immunization Patients Un paula 20 months Aged Out No longer eligible b ased on patient's age to complete this topic Varicella Vaccines Aged Out No longer eligible based on patient's age to complete this topic Care Teams Pharmacy Sales Representative Relationship Specialty Start Date [place] [address] PCP - General Internal Medicine 01/13/21
== END 2024-10-04 10:05 | disposition home or self-care (01) ==
LOC: HO.HAP 10:04
PROVIDERS: Visit Provider Internal Medicine
DX: Z46.1 Encounter for fitting and adjustment of hearing aid (principal); H90.6 Mixed conductive and sensorineural hearing loss, bilateral
CPT/HCPCS: 92593

== ENCOUNTER 2024-10-12 08:17 | Outpatient (REF) | payer OTHER, SELFPAY ==
--- OUTSIDE RECORDS SUMMARY | 2024-10-12 08:28 | XMS_ITS | Clinical Summary ---
Author Organization [facility] Address [address] [place] [address] Care Team Providers Care Chore Worker Name Role Phone Joey Miller MD Primary Care Provider [phone] Surgical History Surgery Date Site/Laterality Comments OTHER [...] age to complete this topic Care Teams Chore Worker Relationship Specialty Start Date [place] [address] PCP - General Internal Medicine 01/13/21
--- NOTE | 2024-10-12 09:07 | MHC.AU.HA3 ---
Hearing Instrument Follow-Up- Binaural Date of Visit: 10/12/24 Right Ear: Make, Model, Color, Serial Number: Oticon Own 3 FS SN: [id number] Color: Beige Web Application Developer Repair Warranty: 04/16/2027 Web Application Developer Loss and Damage Warranty: 04/16/2027 [facility] Service Plan: n/a Battery Size: 312 Type of Wax Guard: ProWax miniFit Dispensed By: [facility] Date of Fittin03/23/2024 Left Ear: Make, Model, Color, Serial Number: Oticon Own 3 FS SN: [id number] Color: Beige Web Application Developer Repair Warranty: 04/16/2027 [employer] Loss and Damage Warranty: 04/16/2027 [facility] Service Plan: n/a Battery Size: 312 Type of Wax Guard: ProWax miniFit Dispensed By: [facility] Date of Fittin03/23/2024 Follow-Up Summary: HAs now reportedly too loud. Wanted them turned down a notch. Decreased overall gain in both HAs 2 steps. Instructed on VC use. Hx of fluid/ear infections, questions change in left ear. Now has noticeable difference between ears. Otoscopy clear, right, question TM perforation, left. [facility] appointment [facility]. Recommended returning with updated hearing test after ENT appointment for programming adjustments, if needed. Recommendations: Hearing instrument follow-up or maintenance as needed. Please contact our clinic with any questions or concerns. Diagnosis Code(s): Primary Diagnosis: H90.6 Mixed Hearing Loss, Bilateral Signature: Provider: Sammi Heath, [facility]
== END 2024-10-12 08:18 | disposition home or self-care (01) ==
LOC: HO.HAP 08:17
PROVIDERS: Visit Provider Internal Medicine
DX: Z46.1 Encounter for fitting and adjustment of hearing aid (principal); H90.6 Mixed conductive and sensorineural hearing loss, bilateral
CPT/HCPCS: 92593; V5266

== ENCOUNTER 2024-10-19 09:18 | Outpatient (REF) | payer OTHER, SELFPAY ==
--- OUTSIDE RECORDS SUMMARY | 2024-10-19 15:58 | XMS_ITS | Clinical Summary ---
Author Organization [facility] Address [address] [place] [address] Care Team Providers Care Product Development Technician Name Role Phone Joey Miller MD Primary Care Provider [phone] Surgical History Surgery Date Site/Laterality Comments OTHER [...] age to complete this topic Care Teams Product Development Technician Relationship Specialty Start Date [place] [address] PCP - General Internal Medicine 01/13/21
[2024-10-19 18:13] LABS: Influenza A PCR NEGATIVE (Negative); Influenza B PCR NEGATIVE (Negative); Resp Syncy Virus RNA Qual PCR NEGATIVE (Negative); SARS COV2 PCR INHOUSE NEGATIVE (Negative)
== END 2024-10-19 09:19 | disposition home or self-care (01) ==
LOC: HO.LNP 09:18
PROVIDERS: PCP Internal Medicine
DX: J06.9 Acute upper respiratory infection, unspecified (principal); H66.002 Acute suppurative otitis media without spontaneous rupture of ear drum, left ear
CPT/HCPCS: 0241U; 99212

== ENCOUNTER 2024-10-19 09:18 | Outpatient (AMB) | payer OTHER, SELFPAY ==
--- OUTSIDE RECORDS SUMMARY | 2024-10-19 10:08 | XMS_ITS | Clinical Summary ---
Author Organization [facility] Address [address] [place] [address] Care Team Providers Care Programs Assistant Name Role Phone Joey Miller MD Primary Care Provider [phone] Surgical History Surgery Date Site/Laterality Comments OTHER [...] age to complete this topic Care Teams Programs Assistant Relationship Specialty Start Date [place] [address] PCP - General Internal Medicine 01/13/21
--- NOTE | 2024-10-19 10:45 | AM.OFFWIN_ITS ---
Intake Vital Signs 10/19/24 10:59 Weight 135 lb BP 114/72 Blood Pressure Location Rt brachial Position Sitting Pulse 90 Pulse Source Pulse Oximeter Temp 98.2 F Temp Source Oral Pulse Oximetry (%) 97 Oxygen Delivery Method Room Air Intake Visit Reasons: EP Cold/flu symptoms/work note Intake Note: Patient here for head congestion, cough, spitting up mucus often, tried sudafed which is helping. Patient Tobacco Use Status: Never used Tobacco Allergies chocolate Allergy (Verified 10/19/24 11:00) Unknown lactase [From Dairy Aid] Allergy (Verified 10/19/24 11:00) Stomach Upset codeine Adverse Reaction (Intermediate, Verified 10/19/24 11:00) Nausea/Vomiting prednisone Adverse Reaction (Intermediate, Verified 10/19/24 11:00) diarrhea, ROTH bisquit Allergy (Unknown, Uncoded 10/19/24 11:00) sneeze mold Allergy (Unknown, Uncoded 10/19/24 11:00) unknown yeast Allergy (Unknown, Uncoded 10/19/24 11:00) unknown Do you need a note to return to daycare/school/sports/work: Yes HPI HPI Comments History of Present Illness Details 59 y/o [facility]/o URI symptoms since Wednesday. Reports headaches, chest/nasal congestion, and cough. [facility] Medical History (Updated 10/19/24 @ 11:21 by Cristina Currie NP) Exudative otitis media of left ear Acute respiratory disease Encounter for general adult medical examination with abnormal findings Hospital discharge follow-up Atypical chest pain Tremor Strain of chest wall Foot pain, bilateral Encounter for screening laboratory testing for COVID-19 virus Well woman exam Encounter for routine gynecological examination Colon cancer screening Diarrhea Nausea & vomiting Indigestion Stomach upset Otitis media of right ear Blurring of vision Upper respiratory tract infection Upper respiratory tract infection Chapped lips Hearing impaired Hypoglycemia Stress Heart palpitations Premature ventricular complex Stress at work Allergies Sensorineural hearing loss Surgical History No pertinent past surgical history Family History Father No problems noted. Mother No problems noted. Social History Housing: Apartment Alcohol intake: never Patient Tobacco Use Status: Never used Tobacco e-Cigarette/Vaping Use: Never Used Second Hand Smoke Exposure: No service: No Current occupational status: employed Cognitive needs: No Hearing needs: Yes Vision needs: Yes Review of Systems Const All systems reviewed & are unremarkable except as noted in HPI and below Physical Exam Vital Signs: Last Vital Signs Temp 98.2 F 10/19/24 10:59 Pulse 90 10/19/24 10:59 BP 114/72 10/19/24 10:59 Pulse Ox 97 10/19/24 10:59 Oxygen Delivery Method Room Air 10/19/24 10:59 Const General: cooperative and no acute distress Orientation/consciousness: patient oriented x3 HEENT Head: Yes normocephalic Ears: external ears normal and TM abnormal wth effusion purulent on the left, erythematous on the left, with fluid behind the TM on the right and retracted on the left General nose exam: Nasal discharge present Mouth: moist mucous membranes Throat: Yes uvula midline Resp Effort & Inspection: normal respiratory effort and able to speak in complete sentences Auscultation: clear to auscultation bilaterally Cardio Heart sounds: S1 normal heart sound present and S2 normal heart sound present Neuro General: patient oriented x3 Assessment & Plan Assessment & Plan (1) Acute respiratory disease: Code(s): J06.9 - Acute upper respiratory infection, unspecified Plan: Ordered PCN Abx Acetaminophen for pain relief. Ordered SARs. (2) Exudative otitis media of left ear: Code(s): H66.42 - Suppurative otitis media, unspecified, left ear Qualifiers: Chronicity: acute Qualified Code(s): H66.002 - Acute suppurative otitis media without spontaneous rupture of ear drum, left ear Plan: Ordered PCN Abx Acetaminophen for pain relief. Ordered SARs. Medications: New amoxicillin-pot clavulanate 875-125 mg 1 tab PO BID 7 days 14 tabs 0RF H66.002 - Acute suppurative otitis media without spontaneous rupture of ear drum, left ear acetaminophen 1,000 mg (2 x 500 mg) PO Q6H PRN 30 caps 0RF pain H66.002 - Acute suppurative otitis media without spontaneous rupture of ear drum, left ear Coding Level of Care Code Est Pt Level 4 (49737) Diagnoses Acute respiratory disease J06.9 Acute exudative otitis media of left ear H66.002 Chronicity: acute Time Spent (min) 20
[2024-10-19 10:59] VITALS: BP 114/72; PULSE 90; TEMP 36.8; O2SAT 97
== END 2024-10-19 11:35 | disposition home or self-care (01) ==
PROVIDERS: PCP Internal Medicine; Visit Provider Nurse Practitioner Family
DX: J06.9 Acute upper respiratory infection, unspecified (principal); H66.002 Acute suppurative otitis media without spontaneous rupture of ear drum, left ear

== ENCOUNTER 2024-10-30 08:29 | Outpatient (AMB) | payer OTHER, SELFPAY ==
[2024-10-30 08:36] VITALS: BP 120/82; PULSE 100; TEMP 36.6; O2SAT 95
--- NOTE | 2024-10-30 08:36 | AM.OFFWIN_ITS ---
Intake Vital Signs 10/30/24 08:36 Weight 136 lb BP 120/82 Blood Pressure Location Lt brachial Position Sitting Pulse 100 Pulse Source Pulse Oximeter Temp 97.9 F Temp Source Oral Pulse Oximetry (%) 95 Oxygen Delivery Method Room Air Intake Visit Reasons: EP congestion in chest/ still not feeling well Intake Note: Patient here for chest congestion that has not improved. Patient Tobacco Use Status: Never used Tobacco Allergies chocolate Allergy (Verified 10/30/24 08:37) Unknown lactase [From Dairy Aid] Allergy (Verified 10/30/24 08:37) Stomach Upset codeine Adverse Reaction (Intermediate, Verified 10/30/24 08:37) Nausea/Vomiting prednisone Adverse Reaction (Intermediate, Verified 10/30/24 08:37) diarrhea, ROTH bisquit Allergy (Unknown, Uncoded 10/30/24 08:37) sneeze mold Allergy (Unknown, Uncoded 10/30/24 08:37) unknown yeast Allergy (Unknown, Uncoded 10/30/24 08:37) unknown Do you need a note to return to daycare/school/sports/work: Yes HPI HPI Comments History of Present Illness Details 59 y/o female patient who presents to [facility] with c/o Cough and chest tightness. [facility] Medical History (Updated 10/30/24 @ 08:56 by Cristina Currie NP) Cough Exudative otitis media of left ear Acute respiratory disease Encounter for general adult medical examination with abnormal findings Hospital discharge follow-up Atypical chest pain Tremor Strain of chest wall Foot pain, bilateral Encounter for screening laboratory testing for COVID-19 virus Well woman exam Encounter for routine gynecological examination Colon cancer screening Diarrhea Nausea & vomiting Indigestion Stomach upset Otitis media of right ear Blurring of vision Upper respiratory tract infection Upper respiratory tract infection Chapped lips Hearing impaired Hypoglycemia Stress Heart palpitations Premature ventricular complex Stress at work Allergies Sensorineural hearing loss Surgical History No pertinent past surgical history Family History Father No problems noted. Mother No problems noted. Social History Housing: Apartment Alcohol intake: never Patient Tobacco Use Status: Never used Tobacco e-Cigarette/Vaping Use: Never Used Second Hand Smoke Exposure: No service: No Current occupational status: employed Cognitive needs: No Hearing needs: Yes Vision needs: Yes Review of Systems Const All systems reviewed & are unremarkable except as noted in HPI and below Physical Exam Vital Signs: Last Vital Signs Temp 97.9 F 10/30/24 08:36 Pulse 100 10/30/24 08:36 BP 120/82 10/30/24 08:36 Pulse Ox 95 10/30/24 08:36 Oxygen Delivery Method Room Air 10/30/24 08:36 Const General: cooperative and no acute distress Orientation/consciousness: patient oriented x3 HEENT Head: Yes normocephalic Ears: external ears normal and TM's normal bilaterally General nose exam: Normal external nose present and No nasal discharge present Face and sinus: Yes sinuses nontender Mouth: moist mucous membranes Throat: Yes uvula midline Resp Effort & Inspection: normal respiratory effort, able to speak in complete sentences, no audible wheezes and no cough Auscultation: clear to auscultation bilaterally, no crackles, no rales, no rhonchi and no wheezes Cardio Heart sounds: S1 normal heart sound present and S2 normal heart sound present Neuro General: patient oriented x3 Assessment & Plan Assessment & Plan (1) Cough: Code(s): R05.9 - Cough, unspecified Qualifiers: Cough type: subacute Qualified Code(s): R05.2 - Subacute cough Plan: Advised to take Mucinex for cough Warm fluids with honey and Veronica. Coding Level of Care Code Est Pt Level 4 (48394) Diagnoses Subacute cough R05.2 Cough type: subacute Time Spent (min) 20
--- OUTSIDE RECORDS SUMMARY | 2024-10-30 08:39 | XMS_ITS | Clinical Summary ---
Author Organization [facility] Address [address] [place] [address] Care Team Providers Care Sales Representative Business Courses Name Role Phone Joey Miller MD Primary Care Provider [phone] Surgical History Surgery Date Site/Laterality Comments OTHER [...] age to complete this topic Care Teams Sales Representative Business Courses Relationship Specialty Start Date End [place] [address] PCP - General Internal Medicine 01/13/21
== END 2024-10-30 09:09 | disposition home or self-care (01) ==
PROVIDERS: PCP Internal Medicine; Visit Provider Nurse Practitioner Family
DX: R05.2 Subacute cough (principal)

== ENCOUNTER → 2024-10-30 08:29 | Outpatient (BNVA) | payer OTHER, SELFPAY | PROVIDERS: PCP Internal Medicine; Visit Provider Nurse Practitioner Family | DX: R05.2 Subacute cough (principal) | CPT/HCPCS: 99212 ==

== ENCOUNTER 2024-11-02 08:17 | Outpatient (AMB) | payer OTHER, SELFPAY ==
--- NOTE | 2024-11-02 08:31 | AM.OFFWIN_ITS ---
Intake Vital Signs 11/02/24 08:32 Weight 136 lb BP 110/68 Blood Pressure Location Rt brachial Position Sitting Pulse 104 H Pulse Source Pulse Oximeter Temp 98.1 F Temp Source Oral Pulse Oximetry (%) 98 Oxygen Delivery Method Room Air Intake Visit Reasons: EP thigt chest, coughing, vomiting Intake Note: Patient here for cough and vomiting mucus. Patient Tobacco Use Status: Never used Tobacco Allergies chocolate Allergy (Verified 11/02/24 08:37) Unknown lactase [From Dairy Aid] Allergy (Verified 11/02/24 08:37) Stomach Upset codeine Adverse Reaction (Intermediate, Verified 11/02/24 08:37) Nausea/Vomiting prednisone Adverse Reaction (Intermediate, Verified 11/02/24 08:37) diarrhea, ROTH bisquit Allergy (Unknown, Uncoded 11/02/24 08:37) sneeze mold Allergy (Unknown, Uncoded 11/02/24 08:37) unknown yeast Allergy (Unknown, Uncoded 11/02/24 08:37) unknown HPI HPI Comments History of Present Illness Details 59 y/o female patient who presents to [facility] walk in clinic with c/o Cough and chest tightness for few weeks now. She has been seen here multiple times for similar concern. Recent SARs done negative. [facility] Medical History (Updated 10/30/24 @ 08:56 by Cristina Currie NP) Cough Exudative otitis media of left ear Acute respiratory disease Encounter for general adult medical examination with abnormal findings Hospital discharge follow-up Atypical chest pain Tremor Strain of chest wall Foot pain, bilateral Encounter for screening laboratory testing for COVID-19 virus Well woman exam Encounter for routine gynecological examination Colon cancer screening Diarrhea Nausea & vomiting Indigestion Stomach upset Otitis media of right ear Blurring of vision Upper respiratory tract infection Upper respiratory tract infection Chapped lips Hearing impaired Hypoglycemia Stress Heart palpitations Premature ventricular complex Stress at work Allergies Sensorineural hearing loss Surgical History No pertinent past surgical history Family History Father No problems noted. Mother No problems noted. Social History Housing: Apartment Alcohol intake: never Patient Tobacco Use Status: Never used Tobacco e-Cigarette/Vaping Use: Never Used Second Hand Smoke Exposure: No service: No Current occupational status: employed Cognitive needs: No Hearing needs: Yes Vision needs: Yes Review of Systems Const All systems reviewed & are unremarkable except as noted in HPI and below Physical Exam Vital Signs: Last Vital Signs Temp 98.1 F 11/02/24 08:32 Pulse 104 H 11/02/24 08:32 BP 110/68 11/02/24 08:32 Pulse Ox 98 11/02/24 08:32 Oxygen Delivery Method Room Air 11/02/24 08:32 Const General: cooperative and no acute distress Orientation/consciousness: patient oriented x3 Resp Effort & Inspection: normal respiratory effort and able to speak in complete sentences Auscultation: clear to auscultation bilaterally, no crackles, no rales, no rhonchi and no wheezes Cardio Heart sounds: S1 normal heart sound present and S2 normal heart sound present Neuro General: patient oriented x3 Assessment & Plan Assessment & Plan (1) Cough: Code(s): R05.9 - Cough, unspecified Qualifiers: Cough type: subacute Qualified Code(s): R05.2 - Subacute cough Plan: Ordered Chest Xray Ordered Z-Pack. Orders: Orders XR chest 2V Today R05.2 - Subacute cough Medications: New azithromycin 500 mg PO DAILY 3 days 3 tabs 0RF R05.2 - Subacute cough Coding Level of Care Code Est Pt Level 4 (80126) Diagnoses Subacute cough R05.2 Cough type: subacute Time Spent (min) 20
[2024-11-02 08:32] VITALS: BP 110/68; PULSE 104; TEMP 36.7; O2SAT 98
--- OUTSIDE RECORDS SUMMARY | 2024-11-02 08:38 | XMS_ITS | Clinical Summary ---
Author Organization [facility] Address [address] [place] [address] Care Team Providers Care Farm Technician Name Role Phone Joey Miller MD Primary Care Provider [phone] Surgical History Surgery Date Site/Laterality Comments OTHER [...] age to complete this topic Care Teams Farm Technician Relationship Specialty Start Date [place] [address] PCP - General Internal Medicine 01/13/21
== END 2024-11-02 09:25 | disposition home or self-care (01) ==
PROVIDERS: PCP Internal Medicine; Visit Provider Nurse Practitioner Family
DX: R05.2 Subacute cough (principal)

== ENCOUNTER 2024-11-02 08:17 | Outpatient (REF) | payer OTHER, SELFPAY ==
--- NOTE | ~2024-11-02 | XR_ITS ---
EXAMINATION: XR CHEST CLINICAL INFORMATION: R05.2 - Subacute cough COMPARISON: 08/05/2024 TECHNIQUE: 2 views of the chest were obtained. FINDINGS: The cardiac, hilar, and mediastinal contours are normal. The lungs are mildly hyperaerated, however clear bilaterally. There is no pneumothorax or pleural effusion. There is no focal osseous or soft tissue abnormality. Mild spinal degenerative changes. XR/XR chest 2V IMPRESSION: Mildly hyperaerated lung parenchyma. No active superimposed disease. Electronically signed by: Homero Bradford MD 11/02/2024 09:29 AM EDT
--- OUTSIDE RECORDS SUMMARY | 2024-11-02 10:27 | XMS_ITS | Clinical Summary ---
Author Organization [facility] Address [address] [place] [address] Care Team Providers Care Oven Press Tender Name Role Phone Joey Miller MD Primary Care Provider [phone] Surgical History Surgery Date Site/Laterality Comments OTHER [...] age to complete this topic Care Teams Oven Press Tender Relationship Specialty Start Date [place] [address] PCP - General Internal Medicine 01/13/21
== END 2024-11-02 08:18 | disposition home or self-care (01) ==
LOC: HO.HMGCX 08:17
PROVIDERS: PCP Internal Medicine; Visit Provider Nurse Practitioner Family
DX: R05.2 Subacute cough (principal)
CPT/HCPCS: 71046; 99212

== ENCOUNTER → 2024-11-02 09:09 | Outpatient (BNV) | payer OTHER, SELFPAY | PROVIDERS: PCP Internal Medicine; Visit Provider Radiology Diagnostic Radiology | DX: R05.2 Subacute cough (principal) | CPT/HCPCS: 71046 ==

== ENCOUNTER 2024-11-04 09:20 | Outpatient (AMB) | payer OTHER, SELFPAY ==
[2024-11-04 11:15] VITALS: BP 110/72; PULSE 93; TEMP 36.6; O2SAT 97; BMI 22.6
--- NOTE | 2024-11-04 11:15 | MHC.OFFWIV ---
Intake Vital Signs 11/04/24 11:15 Height 5 ft 5 in Weight 136 lb BMI 22.6 BP 110/72 Blood Pressure Location Lt brachial Position Sitting Pulse 93 Pulse Source Pulse Oximeter Temp 97.9 F Temp Source Oral Pulse Oximetry (%) 97 Intake Visit Reasons: EP-side effect from med prescribed on 11/02 Patient Tobacco Use Status: Never used Tobacco Allergies chocolate Allergy (Verified 11/04/24 11:16) Unknown lactase [From Dairy Aid] Allergy (Verified 11/04/24 11:16) Stomach Upset codeine Adverse Reaction (Intermediate, Verified 11/04/24 11:16) Nausea/Vomiting prednisone Adverse Reaction (Intermediate, Verified 11/04/24 11:16) diarrhea, ROTH bisquit Allergy (Unknown, Uncoded 11/02/24 08:37) sneeze mold Allergy (Unknown, Uncoded 11/02/24 08:37) unknown yeast Allergy (Unknown, Uncoded 11/02/24 08:37) unknown Do you need a note to return to daycare/school/sports/work: No HPI EP-side effect from med prescribed on 11/02 HPI Details Patient is a 59-year-old female who comes to the walk-in clinic two days after being prescribed azithromycin for a respiratory infection. She reports that she started having loose stools, and was not sure if she should complete the medication as prescribed, or change to a new medication. She has not yet tried qngt-[id number] Imodium, or Pepto-Bismol or other lmql-xmz-sfeyuqa product. She did not have GI issues prior to taking the antibiotic. She does have multiple allergies/side effects and sensitivity/allergies from medications and foods. She has not been nauseous or vomiting, and there is no blood or coffee grounds in the stools. She is eating normally, and has no weakness or dizziness or vertigo, myalgias or malaise, fever chills, abdominal pain currently, and reports that her respiratory symptoms are resolving. She only has 1 tablet/dose left of the original prescription [facility] Medical History (Updated 10/30/24 @ 08:56 by Cristina Currie NP) Cough Exudative otitis media of left ear Acute respiratory disease Encounter for general adult medical examination with abnormal findings Hospital discharge follow-up Atypical chest pain Tremor Strain of chest wall Foot pain, bilateral Encounter for screening laboratory testing for COVID-19 virus Well woman exam Encounter for routine gynecological examination Colon cancer screening Diarrhea Nausea & vomiting Indigestion Stomach upset Otitis media of right ear Blurring of vision Upper respiratory tract infection Upper respiratory tract infection Chapped lips Hearing impaired Hypoglycemia Stress Heart palpitations Premature ventricular complex Stress at work Allergies Sensorineural hearing loss Surgical History No pertinent past surgical history Family History Father No problems noted. Mother No problems noted. Social History Housing: Apartment Alcohol intake: never Patient Tobacco Use Status: Never used Tobacco e-Cigarette/Vaping Use: Never Used Second Hand Smoke Exposure: No service: No Current occupational status: employed Cognitive needs: No Hearing needs: Yes Vision needs: Yes Physical Exam Vital Signs: Last Vital Signs Temp 97.9 F 11/04/24 11:15 Pulse 93 11/04/24 11:15 BP 110/72 11/04/24 11:15 Pulse Ox 97 11/04/24 11:15 BMI result Body Mass Index 22.6 Const General: cooperative, healthy appearing, comfortable, no acute distress, alert, awake, Physically active and well groomed; No anxious, diaphoretic, ill appearing, intoxicated appearing, poor hygiene or tired appearing Nutritional Appearance: average body habitus Orientation/consciousness: oriented to person Limitations: no limitations Resp Effort & Inspection: normal respiratory effort, able to speak in complete sentences, no audible wheezes, no cough, no grunting, not labored, no nasal flaring, no retractions and symmetric chest movement Auscultation: clear to auscultation bilaterally, no crackles, no rales, no rhonchi, no wheezes, lung sounds not diminished and No rub present Cardio Palpation: normal PMI Rate: regular rate Rhythm: regular rhythm Heart sounds: S1 normal heart sound present and S2 normal heart sound present GI Inspection: Yes normal to inspection and No Abdominal wall edema Palpation (GI): Soft to palpation, not firm, nontender, no guarding, not rigid, No hepatosplenomegaly present and no masses General: Yes no CVA tenderness Back/Spine/Pelvis Back: no CVA tenderness Skin Other: Good color, warm and dry Neuro General: oriented to person Psych Appearance: grossly normal Mental Status: mental status grossly normal Speech and movement: Normal speech and movement present Affect: normal affect Attitude: cooperative Thought process: Normal thought process present Insight: Good insight present (Psych) Judgement: Good judgement present (Psych) Assessment & Plan Assessment & Plan (1) Loose stools: Code(s): R19.5 - Other fecal abnormalities Plan Patient is a 59-year-old female who has developed loose stools long-term through a course of azithromycin. We discussed that her exam is overall unremarkable, and that it seems like she is having side effect to the antibiotic and not an allergic reaction. She only has 1 dose left, and she is otherwise resolving from her original respiratory infection, I told her she could take the last dose and could also take Imodium AD with it. She can continue the Imodium AD for the next few days needed. She should start to eat a bland diet, but try to add a probiotic or yogurt to help restore her gut karen. She should also drink adequate fluids. If symptoms persist despite completing the antibiotic, or at any point if she starts to feel weak or dizzy, or have black or coffee ground type stool, fever or chills, abdominal pain, nausea or vomiting or other significant associated symptoms, that she should follow up with PCP or at the walk-in, or go to the emergency department as needed. I did make her aware of C diff, and so she will monitor for this. Coding Level of Care Code Est Pt Level 4 (92273) Diagnoses Loose stools R19.5
== END 2024-11-04 12:07 | disposition home or self-care (01) ==
PROVIDERS: PCP Internal Medicine; Visit Provider Physician Assistant Medical
DX: R19.5 Other fecal abnormalities (principal)

== ENCOUNTER → 2024-11-04 09:20 | Outpatient (BNVA) | payer OTHER, SELFPAY | PROVIDERS: PCP Internal Medicine; Visit Provider Physician Assistant Medical | DX: R19.5 Other fecal abnormalities (principal) | CPT/HCPCS: 99212 ==

== ENCOUNTER 2024-11-08 08:49 | Outpatient (REF) | payer OTHER, SELFPAY ==
--- OUTSIDE RECORDS SUMMARY | 2024-11-08 09:43 | XMS_ITS | Clinical Summary ---
Author Organization [facility] Address [address] [place] [address] Care Team Providers Care Supervisor Dried Yeast Name Role Phone Joey Miller MD Primary Care Provider [phone] Surgical History Surgery Date Site/Laterality Comments OTHER [...] age to complete this topic Care Teams Supervisor Dried Yeast Relationship Specialty Start Date [place] [address] PCP - General Internal Medicine 01/13/21
== END 2024-11-08 08:50 | disposition home or self-care (01) ==
LOC: HO.MAMMO 08:49
PROVIDERS: PCP Internal Medicine; Visit Provider Internal Medicine
DX: Z12.31 Encounter for screening mammogram for malignant neoplasm of breast (principal)
CPT/HCPCS: 77063; 77067

== ENCOUNTER → 2024-11-08 09:00 | Outpatient (BNV) | payer OTHER, SELFPAY | PROVIDERS: PCP Internal Medicine; Visit Provider Internal Medicine | DX: Z12.31 Encounter for screening mammogram for malignant neoplasm of breast (principal) | CPT/HCPCS: 77063; 77067 ==

== ENCOUNTER 2024-11-17 14:19 | Outpatient (AMB) | payer OTHER, SELFPAY ==
--- NOTE | 2024-11-17 14:33 | AM.OFFWIN_ITS ---
Intake Vital Signs 11/17/24 14:34 Weight 136 lb BP 110/68 Blood Pressure Location Rt brachial Position Sitting Pulse 62 Pulse Source Pulse Oximeter Pulse Oximetry (%) 97 Oxygen Delivery Method Room Air Intake Visit Reasons: EP congestion, mucous, headache Patient Tobacco Use Status: Never used Tobacco Allergies chocolate Allergy (Verified 11/04/24 11:16) Unknown lactase [From Dairy Aid] Allergy (Verified 11/04/24 11:16) Stomach Upset codeine Adverse Reaction (Intermediate, Verified 11/04/24 11:16) Nausea/Vomiting prednisone Adverse Reaction (Intermediate, Verified 11/04/24 11:16) diarrhea, ROTH bisquit Allergy (Unknown, Uncoded 11/02/24 08:37) sneeze mold Allergy (Unknown, Uncoded 11/02/24 08:37) unknown yeast Allergy (Unknown, Uncoded 11/02/24 08:37) unknown HPI EP congestion, mucous, headache HPI Details This is a 59 year old female patient who [place] to [place] clinic with ongoing URI symptoms. This has been ongoing for over a month now. She was seen here last on 11/02 and was started on a Z-pack. CXR at the time did not show anything acute. Z-pack helped however caused diarrhea. She has been slowly improving and using saline spray and otc tussin. She states her chest feels clear, however she continues to have head/sinus pressure. Is feeling improved however she missed work today and needs a note, and also wants to make sure she is clinically looking better. [facility] Medical History Cough Exudative otitis media of left ear Acute respiratory disease Encounter for general adult medical examination with abnormal findings Hospital discharge follow-up Atypical chest pain Tremor Strain of chest wall Foot pain, bilateral Encounter for screening laboratory testing for COVID-19 virus Well woman exam Encounter for routine gynecological examination Colon cancer screening Diarrhea Nausea & vomiting Indigestion Stomach upset Otitis media of right ear Blurring of vision Upper respiratory tract infection Upper respiratory tract infection Chapped lips Hearing impaired Hypoglycemia Stress Heart palpitations Premature ventricular complex Stress at work Allergies Sensorineural hearing loss Surgical History No pertinent past surgical history Family History Father No problems noted. Mother No problems noted. Social History Housing: Apartment Alcohol intake: never Patient Tobacco Use Status: Never used Tobacco e-Cigarette/Vaping Use: Never Used Second Hand Smoke Exposure: No service: No Current occupational status: employed Cognitive needs: No Hearing needs: Yes Vision needs: Yes Review of Systems Const All systems reviewed & are unremarkable except as noted in HPI and below Physical Exam Vital Signs: Last Vital Signs Pulse 62 11/17/24 14:34 BP 110/68 11/17/24 14:34 Pulse Ox 97 11/17/24 14:34 Oxygen Delivery Method Room Air 11/17/24 14:34 Const General: cooperative, healthy appearing and no acute distress HEENT Head: Yes normal to inspection Ears: hearing grossly normal bilaterally, external ears normal, TM's normal bilaterally and EAC's normal General nose exam: Normal external nose present and Normal nasal mucous membranes and turbinates present Face and sinus: Yes normal facial exam and Yes sinus tenderness (mild maxillary) Mouth: Normal oral and palatal mucosa present Throat: Yes posterior oropharynx normal Neck Neck: Yes no lymphadenopathy Resp Effort & Inspection: normal respiratory effort and Actively coughing Quality: dry Auscultation: clear to auscultation bilaterally Cardio Rate: regular rate Rhythm: regular rhythm Skin General skin exam: no rashes or lesions noted Extrem General: Yes capillary refill normal and Yes no clubbing, cyanosis or edema Psych Appearance: grossly normal Mental Status: mental status grossly normal Speech and movement: Normal speech and movement present Assessment & Plan Assessment & Plan (1) Cough: Code(s): R05.9 - Cough, unspecified Qualifiers: Cough type: subacute Qualified Code(s): R05.2 - Subacute cough Plan: This patient appears to be improving clinically following URI and sineusitus. I encouraged her to continue with conservative measures of treatment and she can return to the clinic as needed. All questions were answered and patient verbalized understanding and agrees to plan. Work note provided. Coding Level of Care Code Est Pt Level 3 (54953) Diagnoses Subacute cough R05.2 Cough type: subacute
[2024-11-17 14:34] VITALS: BP 110/68; PULSE 62; O2SAT 97
== END 2024-11-17 15:21 | disposition home or self-care (01) ==
PROVIDERS: PCP Internal Medicine; Visit Provider Nurse Practitioner Family
DX: R05.2 Subacute cough (principal)

== ENCOUNTER → 2024-11-17 14:19 | Outpatient (BNVA) | payer OTHER, SELFPAY | PROVIDERS: PCP Internal Medicine; Visit Provider Nurse Practitioner Family | DX: R05.2 Subacute cough (principal) | CPT/HCPCS: 99212 ==

== ENCOUNTER 2024-11-22 08:54 | Outpatient (AMB) | payer OTHER, SELFPAY ==
--- NOTE | 2024-11-22 09:02 | AM.OFFWIN_ITS ---
Intake Vital Signs 11/22/24 09:03 Weight 135 lb BP 120/80 Blood Pressure Location Lt brachial Position Sitting Pulse 96 Pulse Source Pulse Oximeter Temp 97.6 F Temp Source Oral Pulse Oximetry (%) 99 Oxygen Delivery Method Room Air Intake Visit Reasons: EP cough, mucous, congestion, diarreah Intake Note: Patient here for cough, mucus, diarrhea and weakness that started yesterday. Patient Tobacco Use Status: Never used Tobacco Allergies chocolate Allergy (Verified 11/22/24 09:03) Unknown lactase [From Dairy Aid] Allergy (Verified 11/22/24 09:03) Stomach Upset codeine Adverse Reaction (Intermediate, Verified 11/22/24 09:03) Nausea/Vomiting prednisone Adverse Reaction (Intermediate, Verified 11/22/24 09:03) diarrhea, ROTH bisquit Allergy (Unknown, Uncoded 11/22/24 09:03) sneeze mold Allergy (Unknown, Uncoded 11/22/24 09:03) unknown yeast Allergy (Unknown, Uncoded 11/22/24 09:03) unknown Do you need a note to return to daycare/school/sports/work: Yes HPI HPI Comments History of Present Illness Details History The patient is a 59 year old female presenting with persistent respiratory symptoms and weakness. - She reports a month-long history of a chest cold exacerbated by poor work environment conditions. - Symptoms include chest congestion, muc us expectoration, postnasal drip, nasal congestion, loss of voice, fatigue, and weakness, worsened by physical exertion. Patient reports slight palpitations x one episode. - Attributed air quality at work negativ linda affects recovery, initiating symptoms like heart palpitations and weakness. - Reports history of left earache with h earing aid use, with presence of fluid observed. - Previous antibiotic treatments (Z-Freddie leading to diarrhea, followed by Maral benoit) were temporary contributors to symptom relief. - Awaiting further ENT evaluation for pe rsistent ear concerns. Physical Exam General: Cooperative, healthy appearing, comfortable and no acute distress Orientation/consciousness: Patient oriented x3 Limitations: Hearing impaired Head: Normal to inspection Ears: Hearing grossly normal bilaterally, external ears normal and TM's normal bilaterally. Nose: Normal external nose present, Normal nares present and yellow nasal discharge present. Face and sinus: Normal facial exam and Yes sinuses nontender. Mouth: Normal oral and palatal mucosa present and moist mucous membranes Throat: Yes tonsils normal, Yes uvula midline. Posterior oropharynx erythema Eyes: Appearance normal, both eyes and all related structures Neck: Normal visual inspection Respiratory: Clear to auscultation bilaterally. Normal respiratory effort, able to speak in complete sentences, no respiratory distress, not tachypneic, no tripod positioning and no use of accessory muscles. Patient reports chest congestion and tightness. Cardiovascular: Regular rate and rhythm. Normal S1 and S2. Skin: No rashes or lesions noted. Patient reports face was pale. Neuro: Patient oriented x3 Extremities: Normal to inspection and Yes no clubbing, cyanosis or edema. . [facility] Medical History Cough Exudative otitis media of left ear Acute respiratory disease Encounter for general adult medical examination with abnormal findings Hospital discharge follow-up Atypical chest pain Tremor Strain of chest wall Foot pain, bilateral Encounter for screening laboratory testing for COVID-19 virus Well woman exam Encounter for routine gynecological examination Colon cancer screening Diarrhea Nausea & vomiting Indigestion Stomach upset Otitis media of right ear Blurring of vision Upper respiratory tract infection Upper respiratory tract infection Chapped lips Hearing impaired Hypoglycemia Stress Heart palpitations Premature ventricular complex Stress at work Allergies Sensorineural hearing loss Surgical History No pertinent past surgical history Family History Father No problems noted. Mother No problems noted. Social History Housing: Apartment Alcohol intake: never Patient Tobacco Use Status: Never used Tobacco e-Cigarette/Vaping Use: Never Used Second Hand Smoke Exposure: No service: No Current occupational status: employed Cognitive needs: No Hearing needs: Yes Vision needs: Yes Review of Systems Const All systems reviewed & are unremarkable except as noted in HPI and below Physical Exam Vital Signs: Last Vital Signs Temp 97.6 F 11/22/24 09:03 Pulse 96 11/22/24 09:03 BP 120/80 11/22/24 09:03 Pulse Ox 99 11/22/24 09:03 Oxygen Delivery Method Room Air 11/22/24 09:03 Assessment & Plan Assessment & Plan (1) URI, acute: Code(s): J06.9 - Acute upper respiratory infection, unspecified Plan: VSS, pt well appearing and PE unremarkable. I will conduct tests for influenza, COVID-19, and RSV due to the unresolved respiratory symptoms. If these are negative, I will consider a possible bacterial infection and likely initiate Augmentin. The patient notes an ongoing issue with fluid in her left ear, but as she has an ENT appointment pending for 12/05, I will defer further ear-specific interventions unless urgent changes occur. Patient wanted a CXR as her PCP said she needed one so I did order one but I anticipate it will be negative for acute issues. If indicated, reinitiating Augmentin seems viable given its historical efficacy. The patient is counselled on the benefits of continued use of nasal saline sprays to reduce congestion. Future interventions will adapt to symptom progression and treatment responses. Patient was informed and verbally consented to the use of an ambient scribe for clinic note documentation during this visit Orders: Orders XR chest 2V Today R05.9 - Cough, unspecified SARS-CoV2/FLU/RSV Today R09.89 - Other specified symptoms and signs involving the circulatory and respiratory systems Coding Level of Care Code New Pt Level 4 (37832) Diagnoses URI, acute J06.9
[2024-11-22 09:03] VITALS: BP 120/80; PULSE 96; TEMP 36.4; O2SAT 99
--- OUTSIDE RECORDS SUMMARY | 2024-11-22 09:36 | XMS_ITS | Clinical Summary ---
Author Organization [facility] Address [address] [place] [address] Care Team Providers Care Electro Winning Operator Name Role Phone Joey Miller MD Primary Care Provider [phone] Surgical History Surgery Date Site/Laterality Comments OTHER [...] 2024 Influenza Vaccine (#1) 2024 RSV Immunization Adult Patie nts (1 - 1-dose 75+ series) 2038 HIB [...] age to complete this topic Care Teams Electro Winning Operator Relationship Specialty Start Date [place] [address] PCP - General Internal Medicine 01/13/21
== END 2024-11-22 09:45 | disposition home or self-care (01) ==
PROVIDERS: PCP Internal Medicine; Visit Provider Physician Assistant
DX: J06.9 Acute upper respiratory infection, unspecified (principal)

== ENCOUNTER 2024-11-22 08:54 | Outpatient (REF) | payer OTHER, SELFPAY ==
--- NOTE | ~2024-11-22 | XR_ITS ---
EXAMINATION: XR CHEST 2 VIEWS HISTORY: R05.9 - Cough, unspecified COMPARISON: Comparison is made with the prior examination dated 11/02/2024. FINDINGS: PA and lateral views of the chest are submitted. The lungs are expanded and clear. There is no pleural effusion, pneumothorax, or pulmonary vascular congestion. The heart is normal in size. The bones are intact. XR/XR chest 2V IMPRESSION: No acute cardiopulmonary abnormality. Electronically signed by: Edd Starks MD 11/22/2024 09:45 AM EDT
--- OUTSIDE RECORDS SUMMARY | 2024-11-22 10:14 | XMS_ITS | Clinical Summary ---
Author Organization [facility] Address [address] [place] [address] Care Team Providers Care Trim Machine Adjuster Name Role Phone Jeoy Miller MD Primary Care Provider [phone] Surgical History Surgery Date Site/Laterality Comments OTHER [...] age to complete this topic Care Teams Trim Machine Adjuster Relationship Specialty Start Date [place] [address] PCP - General Internal Medicine 01/13/21
[2024-11-22 11:42] LABS: Influenza A PCR NEGATIVE (Negative); Influenza B PCR NEGATIVE (Negative); Resp Syncy Virus RNA Qual PCR NEGATIVE (Negative); SARS COV2 PCR INHOUSE NEGATIVE (Negative)
== END 2024-11-22 08:55 | disposition home or self-care (01) ==
LOC: HO.HMGCX 08:54
PROVIDERS: PCP Internal Medicine; Visit Provider Physician Assistant
DX: J06.9 Acute upper respiratory infection, unspecified (principal); R05.9 Cough, unspecified; R09.89 Other specified symptoms and signs involving the circulatory and respiratory systems
CPT/HCPCS: 0241U; 71046; 99212

== ENCOUNTER → 2024-11-22 09:34 | Outpatient (BNV) | payer OTHER, SELFPAY | PROVIDERS: PCP Internal Medicine; Visit Provider Radiology Diagnostic Radiology | DX: R05.9 Cough, unspecified (principal) | CPT/HCPCS: 71046 ==

== ENCOUNTER 2024-11-27 08:48 | Outpatient (AMB) | payer OTHER, SELFPAY ==
--- OUTSIDE RECORDS SUMMARY | 2024-11-27 09:31 | XMS_ITS | Clinical Summary ---
Author Organization [facility] Address [address] [place] [address] Care Team Providers Care Building Attendant Name Role Phone Joey Miller MD Primary Care Provider [phone] Surgical History Surgery Date Site/Laterality Comments OTHER [...] - 2023-2 5 season) 2024 Influenza Vaccine (Season Ended) 2025 RSV Immunization Adult Patie nts (1 - [...] age to complete this topic Care Teams Building Attendant Relationship Specialty Start Date End [place] [address] PCP - General Internal Medicine 01/13/21
--- NOTE | 2024-11-27 09:45 | MHC.OFFWIV ---
Intake Vital Signs 11/27/24 09:53 Weight 135 lb BP 116/70 Blood Pressure Location Rt brachial Position Sitting Pulse 96 Pulse Source Pulse Oximeter Temp 97.5 F Temp Source Oral Pulse Oximetry (%) 96 Oxygen Delivery Method Room Air Intake Visit Reasons: EP-diarrhea, bad digestion Intake Note: Patient here for diarrhea and upset stomach, she states she has only been taking 1/2 pill twice a day ( total 1 full tab daily) Patient Tobacco Use Status: Never used Tobacco Allergies chocolate Allergy (Verified 11/27/24 09:55) Unknown lactase [From Dairy Aid] Allergy (Verified 11/27/24 09:55) Stomach Upset codeine Adverse Reaction (Intermediate, Verified 11/27/24 09:55) Nausea/Vomiting prednisone Adverse Reaction (Intermediate, Verified 11/27/24 09:55) diarrhea, ROTH bisquit Allergy (Unknown, Uncoded 11/27/24 09:55) sneeze mold Allergy (Unknown, Uncoded 11/27/24 09:55) unknown yeast Allergy (Unknown, Uncoded 11/27/24 09:55) unknown Do you need a note to return to daycare/school/sports/work: No HPI HPI Comments History of Present Illness Details 59 y/o female patient who presents to the walk in clinic with c/o Diarrhea and stomach pain. Pt is currently taking Amoxicillin for URI, believes the medication is giving her Diarrhea. She has been taking 1/2 Tablet, because the whole Tablet gives her Heartburn and Diarrhea. [facility] Medical History (Updated 11/27/24 @ 10:33 by Cristina Currie NP) Diarrhea Cough Exudative otitis media of left ear Acute respiratory disease Encounter for general adult medical examination with abnormal findings Hospital discharge follow-up Atypical chest pain Tremor Strain of chest wall Foot pain, bilateral Encounter for screening laboratory testing for COVID-19 virus Well woman exam Encounter for routine gynecological examination Colon cancer screening Nausea & vomiting Indigestion Stomach upset Otitis media of right ear Blurring of vision Upper respiratory tract infection Upper respiratory tract infection Chapped lips Hearing impaired Hypoglycemia Stress Heart palpitations Premature ventricular complex Stress at work Allergies Sensorineural hearing loss Surgical History No pertinent past surgical history Family History Father No problems noted. Mother No problems noted. Social History Housing: Apartment Alcohol intake: never Patient Tobacco Use Status: Never used Tobacco e-Cigarette/Vaping Use: Never Used Second Hand Smoke Exposure: No service: No Current occupational status: employed Cognitive needs: No Hearing needs: Yes Vision needs: Yes Review of Systems Const All systems reviewed & are unremarkable except as noted in HPI and below Physical Exam Vital Signs: Last Vital Signs Temp 97.5 F 11/27/24 09:53 Pulse 96 11/27/24 09:53 BP 116/70 11/27/24 09:53 Pulse Ox 96 11/27/24 09:53 Oxygen Delivery Method Room Air 11/27/24 09:53 Const General: no acute distress Orientation/consciousness: patient oriented x3 GI Palpation (GI): Soft to palpation, not firm, no guarding, not rigid and No hepatosplenomegaly present Auscultation: normal bowel sounds Neuro General: patient oriented x3, gait normal and moves all extremities Psych Speech and movement: Normal speech and movement present Assessment & Plan Assessment & Plan (1) Diarrhea: Code(s): R19.7 - Diarrhea, unspecified Qualifiers: Diarrhea type: unspecified type Qualified Code(s): R19.7 - Diarrhea, unspecified Plan: Advised Patient to take Pepto-Bismal or Imodium Advised to take Amox with Food to avoid GI upset Advised to drink plenty of fluids. Coding Level of Care Code Est Pt Level 4 (32130) Diagnoses Diarrhea, unspecified type R19.7 Diarrhea type: unspecified type Time Spent (min) 20
[2024-11-27 09:53] VITALS: BP 116/70; PULSE 96; TEMP 36.4; O2SAT 96
== END 2024-11-27 10:29 | disposition home or self-care (01) ==
PROVIDERS: PCP Internal Medicine; Visit Provider Nurse Practitioner Family
DX: R19.7 Diarrhea, unspecified (principal)

== ENCOUNTER → 2024-11-27 08:48 | Outpatient (BNVA) | payer OTHER, SELFPAY | PROVIDERS: PCP Internal Medicine | DX: R19.7 Diarrhea, unspecified (principal) | CPT/HCPCS: 99212 ==

== ENCOUNTER 2024-11-30 21:46 | Emergency (ER) | payer OTHER, SELFPAY ==
--- NOTE | 2024-11-30 22:01 | ECG_ITS ---
Test Reason : ABD PAIN Blood Pressure : */* mmHG Vent. Rate : 60 BPM Atrial Rate : 60 BPM P-R Int : 180 ms QRS Dur : 90 ms QT Int : 432 ms P-R-T Axes : 69 12 29 degrees QTcB Int : 432 ms Normal sinus rhythm Nonspecific T wave abnormality Abnormal ECG When compared with ECG of 27-Jul-2024 07:27, Nonspecific T wave abnormality now evident in Anterior leads Referred By: Generic ED Physician Electronically Signed By: Aram Gonzales
[2024-11-30 22:02] VITALS: BP 133/82; PULSE 56; RESP 18; O2SAT 98
[2024-11-30 22:04] VITALS: BP 155/86; PULSE 67; O2SAT 95
[2024-11-30 22:10] VITALS: BP 132/82; PULSE 65; RESP 16; TEMP 36.6; O2SAT 98; BMI 25.5
[2024-11-30 22:46] LABS: MANUAL DIFF FLAG NO
[2024-11-30 22:47] LABS: Basophils Percent Auto 0.2 % (0-2); Eosinophils Percent Auto 0.2 % (0-4); Hematocrit 40.8 % (37.0-47.0); Hemoglobin 14.5 g/dl (12.0-16.0); Imm Gran Abs Auto 0.05 X10*3/uL (0.00-0.03); Imm Gran Pct Auto 0.4 % (0.0-0.4); Lymphocytes Percent Auto 8.4 % (20-40); Mean Corpuscular HGB Conc 35.5 g/dl (31.0-35.0); Mean Corpuscular Hemoglobin 29.4 pg (27.0-33.0); Mean Corpuscular Volume 82.8 fL (80.0-98.0); Mean Platelet Volume 10.1 fL (9.4-12.3); Monocytes Absolute Auto 0.3 X10*3/uL (0.1-1.2); Monocytes Percent Auto 2.2 % (2-11); Neutrophils Absolute Auto 10.9 x10*3/uL (2.0-8.3); Neutrophils Percent Auto 88.6 % (45-73); Platelet Count 153 X10*3/uL (160-400); Red Blood Count 4.93 X10*6/uL (4.20-5.50); Red Cell Distribution Width 12.1 % (11.0-16.0); White Blood Count 12.3 X10*3/uL (4.8-10.8)
[2024-11-30 23:01] LABS: Alanine Aminotransferase 22 U/L (0-31); Albumin Level 4.1 g/dL (3.5-5.0); Alkaline Phosphatase 78 U/L (39-117); Anion Gap 12 (12-20); Aspartate Amino Transferase 19 U/L (5-31); Bilirubin Direct 0.3 mg/dL (0.0-0.5); Blood Urea Nitrogen 25 mg/dL (9-16); Calcium 8.6 mg/dL (8.4-10.2); Carbon Dioxide 25 mmol/L (22-29); Chloride 110 mmol/L (96-108); Estimated Glomerular Filt Rate > 60; Glucose Random 115 mg/dL (60-115); Lipase 62 U/L (8-78); Potassium 4.3 mmol/L (3.3-5.1); Sodium 143 mmol/L (135-145); Total Protein 6.2 g/dL (6.5-8.0)
[2024-12-01 01:33] VITALS: BP 109/71; PULSE 100; RESP 20; O2SAT 97
--- NOTE | 2024-12-01 03:51 | ED_ITS ---
HPI - Abdominal Pain General Chief Complaint: Abdominal Pain Stated Complaint: burning in abd 3hrs, chest cold 3w, hx gi problem Time Seen by Provider: 12/01/24 03:41 Source: patient Mode of arrival: ambulatory Limitations: no limitations History of Present Illness ED Provider: Dr. Lauren Davidson HPI narrative: Patient comes to the emergency room complaining of abdominal burning sensation for 3 hours prior to arrival which now nearly resolved. Patient denies nausea vomiting or diarrhea, denies hematuria or dysuria. Related Data Home Medications ?Medication ?Instructions ?Recorded ?Confirmed calcium 600 mg (as 2 tab PO DAILY 11/04/24 carbonate)-vitamin D3 10 mcg (400 unit) tablet Previous Rx's ?Medication ?Instructions ?Recorded lidocaine 4 % topical patch 1 patch topical DAILY PRN pain #30 06/24/24 ea tizanidine 4 mg tablet (Zanaflex) 2 mg (1/2 x 4 mg) PO BID PRN 06/24/24 muscle spasticity 5 days #5 tabs fluticasone propionate 50 1 spray intranasal DAILY 1 week 08/11/24 mcg/actuation nasal #16 grams spray,suspension (Flonase Allergy Relief) hydroxyzine HCl 10 mg tablet 10 mg PO Q6-8H PRN anxiety #7 tabs 08/30/24 acetaminophen 500 mg capsule 1,000 mg (2 x 500 mg) PO Q6H PRN 10/19/24 pain #30 caps amoxicillin 875 mg-potassium 1 tab PO Q12H #14 tabs 11/22/24 clavulanate 125 mg tablet omeprazole 40 mg capsule,delayed 40 mg PO DAILY #90 caps 12/01/24 release Allergies Allergy/AdvReac Type Severity Reaction Status Date / Time chocolate Allergy Unknown Verified 11/30/24 22:11 lactase [From Dairy Aid] Allergy Stomach Verified 11/30/24 22:11 Upset codeine AdvReac Intermediate Nausea/Vomi Verified 11/30/24 22:11 ting prednisone AdvReac Intermediate diarrhea, Verified 11/30/24 22:11 ROTH bisquit Allergy Unknown sneeze Uncoded 11/27/24 09:55 mold Allergy Unknown unknown Uncoded 11/27/24 09:55 yeast Allergy Unknown unknown Uncoded 11/27/24 09:55 Review of Systems Review of Systems Constitutional : No Weight loss, No Fever, No Chills, No Night Sweats, No Fatigue, No Malaise ENT/Mouth : No Hearing loss, No Ear Pain, No Nasal Congestion, No Sinus Pain, No Hoarseness, No sore throat, No Rhinorrhea, No Swallowing Difficulty Eyes: No Eye Pain, No Swelling, No Redness, No Foreign Body, No Discharge, No Vision Changes Cardiovascular : No Chest Pain, No SOB, No Dyspnea on Exertion, No Orthopnea, No Edema, No Palpitations Respiratory : No Cough, No Sputum, No Wheezing, No Smoke Exposure, No Dyspnea Gastrointestinal : Complaining of nausea, No Vomiting, No Diarrhea, No Constipation, complaining of generalized burning sensation inside of the stomach, no significant pain Genitourinary : no irregular bleeding, No Dysuria, No Urinary Frequency, No Hematuria, No Urinary Incontinence, No Urgency, No Flank Pain, No Urinary Flow Changes, No Hesitancy Musculoskeletal : No joint pain, No Myalgias, No Joint Swelling Skin : No Skin Lesions, No rash Neuro : No Weakness, No Numbness, No Paresthesias, No Loss of Consciousness, No Dizziness, No Headache Psych : No Anxiety/Panic, No Depression, No SI/HI/AH/VH, No Social Issues, Heme/Lymph: No Bruising, No Bleeding,No Lymphadenopathy Endocrine : No Polyuria, No Polydipsia, No Temperature Intolerance PMFSH Past Medical History Medical History Diarrhea Cough Exudative otitis media of left ear Acute respiratory disease Encounter for general adult medical examination with abnormal findings Hospital discharge follow-up Atypical chest pain Tremor Strain of chest wall Foot pain, bilateral Encounter for screening laboratory testing for COVID-19 virus Well woman exam Encounter for routine gynecological examination Colon cancer screening Nausea & vomiting Indigestion Stomach upset Otitis media of right ear Blurring of vision Upper respiratory tract infection Upper respiratory tract infection Chapped lips Hearing impaired Hypoglycemia Stress Heart palpitations Premature ventricular complex Stress at work Allergies Sensorineural hearing loss Surgical History No pertinent past surgical history Family History Family History Father No problems noted. Mother No problems noted. Social History Social History Housing: Apartment Unable to assess alcohol history related to: Unknown Alcohol intake: never Patient Tobacco Use Status: Never used Tobacco e-Cigarette/Vaping Use: Never Used Second Hand Smoke Exposure: No Use of substances other than those prescribed or required for medical reasons: Unknown Advance Directives: No Advance Directives Information Provided: Yes Do you have a plan to hurt others: No Plan Patient : No service: No Current occupational status: employed Cognitive needs: No Hearing needs: Yes Vision needs: Yes Physical Exam ED Vital Signs: Vital Signs - 24 hr 11/30/24 22:02 11/30/24 22:10 12/01/24 01:33 Temperature 97.9 F Pulse Rate 56 65 100 Respiratory Rate 18 16 20 Blood Pressure 133/82 132/82 109/71 Pulse Oximetry 98 98 97 Oxygen Delivery Method Room Air Room Air Room Air BMI result Body Mass Index 25.5 Const Other: Appearance: Alert. Oriented X3. No acute distress. Eyes: Pupils equal, round and reactive to light. ENT: Pharynx normal. Neck: Normal inspection. Neck supple. No lymph nodes noted. No crepitus CVS: Normal heart rate and rhythm. Pulses normal. Normal S1 and S2 Respiratory: No respiratory distress. Breath sounds normal. No Wheezing. No rales Abdomen: Soft and nontender. No rigidity. No distention. Skin: Skin warm and dry. Normal skin color. Normal skin turgor. Extremities: No lower extremity edema. No Lacerations. No Rash Neuro: Oriented X 3. No motor deficit. No sensory deficit. Moving all extremities. No slurred speech. CN 2 through 12 grossly intact Psych: calm, cooperative, normal affect Medical Decision Making Medical Decision Making MDM Narrative: On physical exam, patient did not have any pain to palpation. Patient's white blood cell count 12.3, likely reactive leukocytosis. Patient has not been having any episodes of abdominal pain here in the ED, nausea vomiting or diarrhea. No abnormality in patient's chemistry, LFTs, lipase 62 My interpretation of EKG: Normal sinus rhythm, heart rate 60, segment depression or elevation, no T-wave inversion, QTC 432 Patient was given p.o. viscous lidocaine, Pepcid, Maalox A CT scan was considered. However, patient's abdominal exam was unremarkable Differential Diagnosis Differential Diagnoses: The differential diagnosis associated with the presentation includes (Gastritis, gastroenteritis, peptic ulcer disease) Lab Data MDM Lab Attestation statement: I reviewed the patient's lab results. 11/30/24 22:42 11/30/24 22:41 Labs: Lab Results 11/30/24 11/30/24 Range/Units 22:41 22:42 WBC 12.3 H (4.8-10.8) X10*3/uL RBC 4.93 (4.20-5.50) X10*6/uL Hgb 14.5 (12.0-16.0) g/dl Hct 40.8 (37.0-47.0) % MCV 82.8 (80.0-98.0) fL MCH 29.4 (27.0-33.0) pg MCHC 35.5 H (31.0-35.0) g/dl RDW 12.1 (11.0-16.0) % Plt Count 153 L (160-400) X10*3/uL MPV 10.1 (9.4-12.3) fL Immature Gran % (Auto) 0.4 (0.0-0.4) % Neut % (Auto) 88.6 H (45-73) % Lymph % (Auto) 8.4 L (20-40) % [place] % (Auto) 2.2 (2-11) % Eos % (Auto) 0.2 (0-4) % Baso % (Auto) 0.2 (0-2) % Lymph # (Auto) 1.0 L (1.2-4.9) X10*3/uL [place] # (Auto) 0.3 (0.1-1.2) X10*3/uL Eos # (Auto) 0.0 (0.0-0.4) X10*3/uL Baso # (Auto) 0.0 (0.0-0.2) X10*3/uL Abs Immat Gran (auto) 0.05 H (0.00-0.03) X10*3/uL Absolute Neuts (auto) 10.9 H (2.0-8.3) x10*3/uL Absolute Nucleated RBC 0.000 (0.0-0.012) X10*3/uL Nucleated RBC % (auto) 0.0 (0.0-0.2) /100WBC Sodium 143 (135-145) mmol/L Potassium 4.3 (3.3-5.1) mmol/L Chloride 110 H (96-108) mmol/L Carbon Dioxide 25 (22-29) mmol/L Anion Gap 12 (12-20) BUN 25 H (9-16) mg/dL Creatinine 0.62 (0.5-1.4) mg/dL Estim Creat Clear Calc 80.0 Estimated GFR > 60 Random Glucose 115 (60-115) mg/dL Calcium 8.6 (8.4-10.2) mg/dL Total Bilirubin 1.0 (0.0-1.0) mg/dL Direct Bilirubin 0.3 (0.0-0.5) mg/dL AST 19 (5-31) U/L ALT 22 (0-31) U/L Alkaline Phosphatase 78 (39-117) U/L Total Protein 6.2 L (6.5-8.0) g/dL Albumin 4.1 (3.5-5.0) g/dL Lipase 62 (8-78) U/L Discharge Plan Discharge Clinical Impression: Gastritis Patient Disposition: Home, Self-Care Instructions: Gastritis (ED), Diet for Stomach Ulcers and Gastritis (ED) Additional Instructions: Please follow-up with your primary care physician tomorrow. If you have any worsening or new symptoms, please return to the emergency room or call 911 Prescriptions: New omeprazole 40 mg capsule,delayed release(DR/EC) 40 mg PO DAILY Qty: 90 0RF No Action lidocaine 4 % adhesive patch,medicated 1 patch topical DAILY PRN (Reason: pain) Qty: 30 0RF Rx Instructions: on for 12 hours, off for 12 hours, apply to affected area as needed for pain tizanidine [Zanaflex] 4 mg tablet 2 mg PO BID PRN (Reason: muscle spasticity) 5 Days Qty: 5 0RF fluticasone propionate [Flonase Allergy Relief] 50 mcg/actuation spray,suspension 1 spray intranasal DAILY 7 Days Qty: 16 0RF Rx Instructions: administer into each nostril acetaminophen 500 mg capsule 1,000 mg PO Q6H PRN (Reason: pain) Qty: 30 0RF calcium carbonate-vitamin D3 600 mg-10 mcg (400 unit) tablet 2 tab PO DAILY hydroxyzine HCl 10 mg tablet 10 mg PO Q6-8H PRN (Reason: anxiety) Qty: 7 0RF amoxicillin-pot clavulanate 875-125 mg tablet 1 tab PO Q12H Qty: 14 0RF Print Language: [place]
[2024-12-01] MEDS: Lidocaine HCl Viscous 2 % 15 ML SOLUTION MUCOUS MEM (04:01)
[2024-12-01] MEDS: polyethylene glycoL 3350 17 GM POWD.PACK PO (04:01)
[2024-12-01] MEDS: Famotidine 20 MG TABLET PO (04:01)
[2024-12-01 04:11] VITALS: BP 0/0; PULSE 0; RESP 0; TEMP -17.7; TEMP 0; O2SAT 0
== END 2024-12-01 04:13 | disposition home or self-care (01) ==
PROVIDERS: Emergency Provider Emergency Medicine; PCP Internal Medicine
DX: K29.70 Gastritis, unspecified, without bleeding (principal); R10.2 Pelvic and perineal pain; R94.31 Abnormal electrocardiogram [ECG] [EKG]; Z79.899 Other long term (current) drug therapy
CPT/HCPCS: 36415; 80053; 82248; 83690; 85025; 93005; 99284; 99285

== ENCOUNTER → 2024-11-30 22:01 | Outpatient (BNV) | payer OTHER, SELFPAY | PROVIDERS: Emergency Provider Emergency Medicine; PCP Internal Medicine; Visit Provider Internal Medicine Cardiovascular Disease | DX: R94.31 Abnormal electrocardiogram [ECG] [EKG] (principal); R10.9 Unspecified abdominal pain | CPT/HCPCS: 93010 ==

== ENCOUNTER 2025-01-11 08:15 | Outpatient (AMB) | payer OTHER, SELFPAY ==
--- OUTSIDE RECORDS SUMMARY | 2025-01-11 08:23 | XMS_ITS | Data Portability ---
Author Organization [place] - [facility], Allergy Address [address] [address] Care Team Providers Care Induction Furnace Operator Name Role Phone JEFFERY PENN Referring Provider [phone] JUAN CARSON Primary Care Provider Assessment Encounter Date Assessment Date Assessment LastModified by Organization Details LastModified Time 12/06/2024 12/06/2024 59 year old female with left otorrhea. She has left tympanic membrane perforation and wet appearing canal. Culture was obtained. Debridement performed with suction. One week course of Ofloxacin was prescribed. I have recommend that she minimize her use of the left hearing aid over the next week. Dry ear precautions. Audiometric testing today demonstrates moderately severe sloping to profound mixed hearing loss on the right and severe sloping to profound mixed loss on the left. Type A tympanogram on the right. Type B large volume on the left consistent with TM perforation. I discussed with the patient that these perforations often heal on their own within three months. She will follow up in 3 months. We will further tailor otic therapy based on cultures. Patient is not able to use the portal and prefers communication via telephone. Not available 12/06/2024 15:16:33 01/01/2025 01/01/2025 Left otorrhea is resolved. She has left TM perforation. Advised continued dry ear precautions on the left. She may use mineral oil or olive oil in the right ear as needed for itching. Follow up in a couple of months to reassess the left TM perforation. Not available 01/01/2025 10:39:31 Plan of Treatment Reminders Order Date Submit Date Provider Last Modified By Organization Details Last Modified Time Details Appointments Establish ed 15 2024 11:15A M TIGRE MCCAIN PA-C Not available Not available Not available Lab fungus, culture, unspecifi ed specimen 2024 [facility]END [facility] (Centralized Electronic Ordering - All Locations), Patient Can Go To The Location Of Their Choice, [facility] 01/04/2025 12:30:24 culture, bacterial 2024 025 [facility] (Centralized Electronic Ordering - All Locations), Patient Can Go To The Location Of Their Choice, [address] 12/13/2024 11:38:31 Referral None recorded. Procedures None recorded. Surgeries None recorded. Imaging None recorded. Medication Orders ofloxacin 0.3 % ear drops 2024 [id number], [address] [place], [address], 12/06/2024 14:32:40 Patient TargetsNo targets recorded. Patient InstructionsNo instructions recorded. 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 None Reported. Results Created Date Observation Date Name Description Value Unit Range Abnormal Flag Note LastModifiedBy Organization Detail LastModifiedTime 12/07/1912/10/2024 ANAER OBIC AND AEROB IC CULTU RE anaerobic culture Final report Not Available [facility] ([facility]) [address] [place], [address], 01/04/2025 12:30:23 12/07/1912/10/2024 ANAER OBIC AND AEROB IC CULTU RE result 1 COMMEN T No anaer obic growt h in 72 hours . Not Available [facility] ([facility]) [address] [place], [address], 01/04/2025 12:30:23 12/07/1912/10/2024 ANAER OBIC AND AEROB IC CULTU RE aerobic culture Final report abnormal Not Available [facility] ([facility]) [address] [place], [address], 01/04/2025 12:30:23 12/07/19 25 12/10/2024 ANAER OBIC AND AEROB IC CULTU RE result 1 COMMEN T abnormal Methi cilli n - resis tant Staph yloco ccus aureu s Based on resis tance to oxaci llin this isola te would be resis tant to all curre ntly avail able beta- lacta m antim icrob ial agent s, with the excep tion of the newer cepha lospo rins with anti- MRSA activ ity, such as Cefta rolin e Heavy growt h Not Available [facility] ([facility]) [address] [facility], [place], [address], 01/04/2025 12:30:23 12/07/19 25 12/10/2024 ANAER OBIC AND AEROB IC CULTU RE result 2 Klebsi joyce aeroge makenzie abnormal Some Enter obact erale s may devel op resis tance durin g thera py with third -gene ratio n cepha lospo rins. This resis tance is most commo nly seen with Citro bacte r freun dii compl ex, Enter obact er cloac ae compl ex, and Klebs iella aerog gris. Perry ольга that initi ally test susce ptibl e may becom e resis tant withi n a few days after initi ation of thera py. Testi ng subse quent isola ольга may be warra nted if clini felice indic ated. (CLSI M100- Ed33) Multi -Drug Resis tant Organ ism Heavy growt h Not Available [facility] ([facility]) [address] [facility], [place], [address], 01/04/2025 12:30:23 12/07/19 25 12/10/2024 ANAER OBIC AND AEROB IC CULTU RE result 3 COMMEN T abnormal Enter obact er cloac ae compl ex Some Enter obact erale s may devel op resis tance durin g thera py with third -gene ratio n cepha lospo rins. This resis tance is most commo nly seen with Citro bacte r freun dii compl ex, Enter obact er cloac ae compl ex, and Klebs iella aerog gris. Perry ольга that initi ally test susce ptibl e may becom e resis tant withi n a few days after initi ation of thera py. Testi ng subse quent isola ольга may be warra nted if clini felice indic ated. (CLSI M100- Ed33) Heavy growt h Not Available [facility] ([facility]) [address] [facility], [place], [address], 01/04/2025 12:30:23 12/07/19 25 12/10/2024 ANAER OBIC AND AEROB IC CULTU RE antimicrobia l susceptibili ty Commen t S = Susce ptibl e; I = Inter media te; R = Resis tant P = Posit radha; N = Negat radha MICS are expre ssed in micro grams per mL Antib iotic RSLT# 1 RSLT# 2 RSLT# 3 RSLT# 4 Amoxi cilli n/Cla vulan ic Acid R R Cefep stacie S S Cefox itin R R Cefpo doxim e S S Ceftr iaxon e S Cipro floxa cory S S S Clind amyci n S Ertap enem S S Eryth romyc in R Genta micin S S S Levof loxac in S S S Linez olid S Merop enem S Nitro furan toin I I Oxaci llin R Penic illin R Rifam pin S Tetra cycli ne S S S Tobra mycin S S Trime thopr im/Crenshaw lfa S S R Vanco mycin S Not Available [facility] ([facility]) [address] [facility], [place], [address], 01/04/2025 12:30:23 12/07/19 25 12/07/2024 FUNGU S CULTU RE WITH STAIN fungus stain Final report Not Available [facility] ([facility]) [address] [facility], [place], [address], 01/04/2025 12:30:24 12/07/19 25 12/07/2024 FUNGU S CULTU RE WITH STAIN result 1 COMMEN T LULY/C alcof luor prepa ratio n: no fungu s obser naa. Not Available [facility] ([facility]) [address] [facility], [place], [address], 01/04/2025 12:30:24 12/07/19 25 01/04/2025 FUNGU S CULTU RE WITH STAIN fungus (mycology) culture Final report Not Available [facility] ([facility]) [address] [facility], [place], [address], 01/04/2025 12:30:24 12/07/19 25 01/04/2025 FUNGU S CULTU RE WITH STAIN result 1 COMMEN T No yeast or mold isola rajendra after 4 weeks . Not Available [facility] ([facility]) [address] [facility], [place], [address], 01/04/2025 12:30:24 12/07/19 25 01/24/2024 audio gram No observ ation record ed. [email or web address] Not Available 11/21 14:06:49 12/08/19 audio gram No observ ation record ed. BARCODE Not Available 2024 09:29:54 Result Notes None recorded. Problems Name Problem SNOMED Code Status Onset Date Resolution Date Notes Provider Name and Address Organization Details Recorded Time Mixed conductive and sensorineur al hearing loss, bilateral 585893994 Active 2024 JP CELESTE , AUD [address] [facility],[place] [address], [place], [address], [facility] - [facility] 13:25:44 Otorrhea of left ear 6836193518101 108 Active 2024 SHILPA COOL PA-C [address] [facility], [address], [place], [address], [facility] [place] 13:57:34 Marginal perforation of tympanic membrane 01747101 Active 2024 SHILPA COOL PA-C [address] [facility], [address], [place], [address], [facility] - [facility] 13:58:22 Otorrhea 33750555 Active 2024 SHILPA COOL PA-C [address] [facility],[address], [place], [address], [facility] - [facility] [place] 14:15:14 Problem Notes None recorded. Procedures Surgical History Date Name Laterality Status Provider Name and Address Organization Details Recorded Time 12/06/2024 Comp Audio with Tymps - 85651 & 19633 completed VIDAL WOOD [address] [place],[facility] [address], [place], [address], [facility] - [facility] [place] 12/06/2024 13:25:33 Imaging Results Imaging Date Name Status LastModified by Organiz ation Details LastModified Time 01/24/2024 audiogram completed [email or web address] Information n ot available 12/06/2024 14:06:49 12/07/2024 audiogram completed BARCODE Information no t available 12/07/2024 09:29:54 Procedure Notes None recorded. Medical Equipment None Reported. Allergies No known drug allergies Medications Name Sig Start Date Stop Date Status Note LastModified by Organization Details LastModified Time lidocaine 4 % topical patch APPLY 1 PATCH TOPICALLY DAILY NEEDED FOR PAIN. ON FOR 12 HOURS AND OFF FOR 12 HOURS. APPLY TO AFFECTED AREA NEEDED FOR PAIN. active Not Available Not Available No t Available tizanidine 4 mg tablet TAKE 1/2 2MG) BY MOUTH TWICE DAILY NEEDED FOR MUSCLE SPASTICIT Y. active Not Available Not Available No t Available omeprazole 40 mg capsule,del ayed release TAKE ONE CAPSULE BY MOUTH EVERY DAY active Not Available Not Available No t Available ofloxacin 0.3 % ear drops INSTILL 4 DROPS IN AFFECTED EAR S) TWICE DAILY FOR 7 DAYS. active Not Available Not Available No t Available amoxicillin 875 mg tablet TAKE ONE TABLET BY MOUTH EVERY 12 HOURS 12/06 completed Not Available Not Available Not Available Mapap (acetaminop hen) 500 mg capsule TAKE TWO CAPSULES BY MOUTH EVERY 6 HOURS NEEDED FOR PAIN active Not Available Not Available No t Available doxycycline monohydrate 100 mg capsule TAKE ONE CAPSULE BY MOUTH TWICE A DAY 12/06 completed Not Available Not Available Not Available pantoprazol e 40 mg tablet,gilberto yed release TAKE ONE TABLET BY MOUTH EVERY DAY active Not Available Not Available No t Available hydroxyzine HCl 25 mg tablet TAKE ONE TABLET BY MOUTH EVERY 6 HOURS NEEDED active Not Available Not Available No t Available hydroxyzine HCl 10 mg tablet TAKE ONE TABLET EVERY SIX TO EIGHT HOURS NEEDED FOR ANXIETY active Not Available Not Available No t Available fluticasone propionate 50 mcg/actuati on nasal spray,suspe nsion SPRAY 1 SPRAY IN EACH NOSTRIL ONCE DAILY FOR 7 DAYS active Not Available Not Available No t Available amoxicillin 875 mg-potassiu m clavulanate 125 mg tablet TAKE 1 TABLET BY MOUTH TWICE A DAY 12/06 completed Not Available Not Available Not Available azithromyci n 500 mg tablet TAKE ONE TABLET BY MOUTH EVERY DAY FOR 3 DAYS 12/06 completed Not Available Not Available Not Available calcium 600 mg (as carbonate)- vitamin D3 10 mcg (400 unit) tablet TAKE TWO TABLETS BY MOUTH EVERY DAY active Not Available Not Available No t Available Vitals Date Recorded Body height Body mass index (BMI) Body weight Provider Name and Address Organization Details Last Updated DateTime 12/06/2024 154.94 cm 25.5 kg/m2 85887.97 g Reina Laird [facility] 12/06/2024 13:41:46 Date Recorded Body height Body mass index (BMI) Body weight Provider Name and Address Organization Details Last Updated DateTime 01/01/2025 154.94 cm 25.5 kg/m2 50151.97 g Marianna Arguello [facility] 01/01/2025 10:22:48 Social History None recorded. Functional Status None recorded. Mental Status None recorded. Family History Nothing Reported. Medical History Condition Response Allergies/Hayfever N Heart Problems N Anxiety Y Tonsil Infections N Emphysema N Migraines N Thyroid Problems N Glaucoma N Depression N COPD N Developmental Delay N Nasal or Sinus Problems N Anemia N Immune System Disorder N Anesthesia Complications N Heart Attack (HI) N Other Skin Condition N Diabetes N Rhinitis N Bleeding Disorder N Food Allergy N Arthritis N Hearing Loss N Hyperlipidemia N Cancer N Stroke N Dementia N Nasal polyps N Asthma N High Cholesterol N Sleep Disorder N GERD/Reflux N Liver Disease N Headaches N Fibromyalgia N Hypertension N Speech Delay N Kidney Disease N Gynecological HistoryNo gynecological history recorded. Obstetrics History GPAL:G 0 P 0 0 0 0 Past Encounters Encounter ID Performer Location Encounter Start Date Encounter Closed Date Diagnosis/Indication Diagnosis SNOMED-CT Code Diagnosis ICD10 Code Diagnosis Note [id number] SHILPA COOL PA-C [facility] [address] [address] 12/06/2024 12:17:20 12/06/2024 14:04:48 Mixed conductive and sensorineural hearing loss, bilateral [id number] H90.6 Audiologic al evaluation results: Right ear: {{Normal N ormal through 2 kHz Mild M oderate Mo derately-s evere* Sev ere Profou nd}} {{hearing hearing. s loping to a mild slopi ng to a moderate s loping to moderately severe slo ping to severe slo ping to profound* flat high frequency low frequency mid frequency cookie bite bryson curve}} {{with sen sorineural hearing loss with condu ctive hearing loss with mixed hearing loss with*}} {{excellen t* good fa ir poor no measurable }} word recognitio n. Left ear: {{Normal N ormal through 2 kHz Mild M oderate Mo derately-s evere Marlena re* Profou nd}} {{hearing hearing. s loping to a mild slopi ng to a moderate s loping to moderately severe slo ping to severe slo ping to profound* flat high frequency low frequency mid frequency cookie bite bryson curve}} {{with sen sorineural hearing loss with condu ctive hearing loss with mixed hearing loss with*}} {{excellen t good* fa ir poor no measurable }} word recognitio n. Tympanomet ry: Right Ear:{{Type A Type A with rounded peak Type A with double peak Type As Type As with rounded peak Type Ad* Type C Type C, shallow & rounded peak Type B Type B with large volume Cou ld not maintain a hermetic seal}} Left Ear:{{Type A Type A with rounded peak Type A with double peak Type As Type As with rounded peak Type Ad Type C Type C, shallow & rounded peak Type B Type B with large volume* Co uld not maintain a hermetic seal}} Otorrhea of left ear 738 4208425 068675 H92.12 Marginal p erforation of tympanic membrane 69035791 H72.2X9 Otorrhea 36820676 H92.12 [id number] SHILPA COOL PA-C [facility] [address] [place] [address] 01/01/2025 10:19:06 01/01/2025 10:37:59 Otorrhea of left ear 0812865135 378625 H92.12 Marginal p erforation of tympanic membrane 92115997 H72.2X9 Mixed cond uctive and sensorineural hearing loss, bilateral 892580524 H90.6 Audiologic al evaluation results: Right ear: {{Normal N ormal through 2 kHz Mild M oderate Mo derately-s evere* Sev ere Profou nd}} {{hearing hearing. s loping to a mild slopi ng to a moderate s loping to moderately severe slo ping to severe slo ping to profound* flat high frequency low frequency mid frequency cookie bite bryson curve}} {{with sen sorineural hearing loss with condu ctive hearing loss with mixed hearing loss with*}} {{excellen t* good fa ir poor no measurable }} word recognitio n. Left ear: {{Normal N ormal through 2 kHz Mild M oderate Mo derately-s evere Marlena re* Profou nd}} {{hearing hearing. s loping to a mild slopi ng to a moderate s loping to moderately severe slo ping to severe slo ping to profound* flat high frequency low frequency mid frequency cookie bite bryson curve}} {{with sen sorineural hearing loss with condu ctive hearing loss with mixed hearing loss with*}} {{excellen t good* fa ir poor no measurable }} word recognitio n. Tympanomet ry: Right Ear:{{Type A Type A with rounded peak Type A with double peak Type As Type As with rounded peak Type Ad* Type C Type C, shallow & rounded peak Type B Type B with large volume Cou ld not maintain a hermetic seal}} Left Ear:{{Type A Type A with rounded peak Type A with double peak Type As Type As with rounded peak Type Ad Type C Type C, shallow & rounded peak Type B Type B with large volume* Co uld not maintain a hermetic seal}} Health Concerns Section Related Observation LastModified by Organization [employer] LastModified Time None Recorded Concern Status LastModified by Organization Details LastModified Time None Recorded Advance Directives Directive None Recorded Payers Insurance Date Sequence Insurance Name Policy Number Policy Barnes Covered Member ID Barnes Member ID Guarantor Name 12/29/2024 1 [facility] NET PLAN (MEDICAID HMO) [place] Snow [id number] Katia Snow Notes Date Note Type Note Provider Name and Address Organization Details Recorded Time 12/06/2024 text/html 59 year old yoselyn call presents to the office accompanied by her mother. She reports left ear drainage off and on since last January when she was fitted for new hearing aids [facility]. She has used hearing aids for the past 30 years. She reports that six weeks ago she was sick with upper respiratory infection and was told that she had fluid in the left ear. It has been draining for the past six weeks. She has not been on any otic drops. She has continued to use both hearing aids. SELMA CARMONA MD [address] [place] [address], [address], [facility] - [facility] 12/06/2024 17:12:54 01/01/2025 text/html 59 year old yoselyn call presents for follow up of her left otorrhea. She used Ofloxacin drops and has had no further drainage. She reports some right ear itching. TAO GAMBINO MD [address] [place] [address], [phone], [facility] 01/01/2025 12:55:15 OBGyn Episode No OBEpisode recorded.
--- OUTSIDE RECORDS SUMMARY | 2025-01-11 08:23 | XMS_ITS | Clinical Summary ---
Author Organization [facility] Address [address] [place] [address] Care Team Providers Care Morning Show Producer Name Role Phone Joey Miller MD Primary Care Provider [phone] Surgical History Surgery Date Site/Laterality Comments OTHER [...] age to complete this topic Meningococcal B Vaccine Aged Out No l onger eligible based on patient's age to complete [...] age to complete this topic Care Teams Morning Show Producer Relationship Specialty Start Date End Date Joey Miller MD [address] [place] [address] PCP - General Internal Medicine 01/13/21
--- NOTE | 2025-01-11 09:25 | AM.OFFWIN_ITS ---
Intake Vital Signs 01/11/25 09:28 Height 5 ft 1 in Weight 131 lb BMI 24.7 BP 120/80 Blood Pressure Location Lt brachial Position Sitting Pulse 103 H Pulse Source Pulse Oximeter Pulse Oximetry (%) 99 Oxygen Delivery Method Room Air Intake Visit Reasons: EP indigestion Intake Note: Patient here for indigestion in chest. Patient Tobacco Use Status: Never used Tobacco Allergies chocolate Allergy (Verified 01/11/25 09:34) Unknown lactase [From Dairy Aid] Allergy (Verified 01/11/25 09:34) Stomach Upset codeine Adverse Reaction (Intermediate, Verified 01/11/25 09:34) Nausea/Vomiting prednisone Adverse Reaction (Intermediate, Verified 01/11/25 09:34) diarrhea, ROTH bisquit Allergy (Unknown, Uncoded 01/11/25 09:34) sneeze mold Allergy (Unknown, Uncoded 01/11/25 09:34) unknown yeast Allergy (Unknown, Uncoded 01/11/25 09:34) unknown Do you need a note to return to daycare/school/sports/work: No HPI HPI Comments History of Present Illness Details 59 y/o Female patient who presents to [facility] in clinic with c/o Indigestion for few weeks now. She was seen and evaluated by her PCP Dr. Crockett of ([facility]) several times where she was prescribed different medications. Per Patient I had so many side effects so I stopped taking them . She was originally prescribed Omeprazole which was stopped due to headaches and stomach pain. She then switched to Pantoprazole which was also eventually discontinued later to some unknown side effects. Pt only took one or 2 doses of each mediation - then reported side effects. Prior h/o Untreated Anxiety - Pt reports Toxic work environment (her Boss in not nice) and she is constantly stressed and sometimes Panic attacks. She was previously referred for Mental health counselling and treatment. Pt reports attending Therap sessions, then stopped for unknown reasons. She was prescribed medications that she eventually did not take due to side effects . [facility] Medical History (Updated 01/11/25 @ 11:56 by Cristina Currie NP) Indigestion Diarrhea Cough Exudative otitis media of left ear Acute respiratory disease Encounter for general adult medical examination with abnormal findings Hospital discharge follow-up Atypical chest pain Tremor Strain of chest wall Foot pain, bilateral Encounter for screening laboratory testing for COVID-19 virus Well woman exam Encounter for routine gynecological examination Colon cancer screening Nausea & vomiting Stomach upset Otitis media of right ear Blurring of vision Upper respiratory tract infection Upper respiratory tract infection Chapped lips Hearing impaired Hypoglycemia Stress Heart palpitations Premature ventricular complex Stress at work Allergies Sensorineural hearing loss Surgical History No pertinent past surgical history Family History Father No problems noted. Mother No problems noted. Social History Housing: Apartment Unable to assess alcohol history related to: Unknown Alcohol intake: never Patient Tobacco Use Status: Never used Tobacco e-Cigarette/Vaping Use: Never Used Second Hand Smoke Exposure: No service: No Current occupational status: employed Cognitive needs: No Hearing needs: Yes Vision needs: Yes Physical Exam Vital Signs: Last Vital Signs Pulse 103 H 01/11/25 09:28 BP 120/80 01/11/25 09:28 Pulse Ox 99 01/11/25 09:28 Oxygen Delivery Method Room Air 01/11/25 09:28 BMI result Body Mass Index 24.7 Const General: no acute distress Orientation/consciousness: patient oriented x3 Resp Effort & Inspection: normal respiratory effort Auscultation: clear to auscultation bilaterally Cardio Heart sounds: S1 normal heart sound present and S2 normal heart sound present GI Palpation (GI): Soft to palpation, Tenderness to palpation present (GI) in the epigastrum, no guarding, not rigid and No hepatosplenomegaly present Auscultation: normal bowel sounds Neuro General: patient oriented x3 Psych Speech and movement: Normal speech and movement present Affect: Anxious affect present Assessment & Plan Assessment & Plan (1) Indigestion: Code(s): K30 - Functional dyspepsia Plan: Advised to f/u with PCP for possible GI referral. (2) Anxiety, generalized: Code(s): F41.1 - Generalized anxiety disorder Plan: Pt to call Therapist for an appointment. Declined medications today. Denies SA or SI. Advised to switch jobs or locations. Coding Level of Care Code Est Pt Level 4 (53059) Diagnoses Indigestion K30 Anxiety, generalized F41.1 Time Spent (min) 20
[2025-01-11 09:28] VITALS: BP 120/80; PULSE 103; O2SAT 99; BMI 24.7
== END 2025-01-11 11:13 | disposition home or self-care (01) ==
PROVIDERS: PCP Internal Medicine; Visit Provider Nurse Practitioner Family
DX: K30 Functional dyspepsia (principal); F41.1 Generalized anxiety disorder

== ENCOUNTER → 2025-01-11 08:15 | Outpatient (BNVA) | payer OTHER, SELFPAY | PROVIDERS: PCP Internal Medicine; Visit Provider Nurse Practitioner Family | DX: K30 Functional dyspepsia (principal); F41.1 Generalized anxiety disorder | CPT/HCPCS: 99212 ==

== ENCOUNTER 2025-02-05 14:06 | Outpatient (REF) | payer OTHER, SELFPAY ==
--- OUTSIDE RECORDS SUMMARY | 2025-02-05 15:48 | XMS_ITS | Clinical Summary ---
Author Organization [facility] Address [address] [place] [address] Care Team Providers Care Management Nurse Rn Name Role Phone Joey Miller MD Primary Care Provider [phone] Surgical History Surgery Date Site/Laterality Comments OTHER [...] age to complete this topic Care Teams Management Nurse Rn Relationship Specialty Start Date End Date Joey Miller MD [address] [place] [address] PCP - General Internal Medicine 01/13/21
== END 2025-02-05 14:07 | disposition home or self-care (01) ==
LOC: HO.HAP 14:06
PROVIDERS: Visit Provider Otolaryngology
DX: Z46.1 Encounter for fitting and adjustment of hearing aid (principal); H90.6 Mixed conductive and sensorineural hearing loss, bilateral
CPT/HCPCS: 92593; 99499; V5266

== ENCOUNTER 2025-02-21 09:05 | Outpatient (AMB) | payer OTHER, SELFPAY ==
--- NOTE | 2025-02-21 09:10 | MHC.OFFVIS ---
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 Hand Washer Required: No Information Interpreted: non-clinical & clinical Hand Button Splitter: Hand Button Splitter Present (Linda Watkins CAITY) Accompanied by: Self / Same As Patient Allergies chocolate Allergy (Verified 02/21/25 09:17) Unknown lactase (From Dairy Aid) Allergy (Verified 02/21/25 09:17) Stomach Upset codeine Adverse Reaction (Intermediate, Verified 02/21/25 09:17) Nausea/Vomiting prednisone Adverse Reaction (Intermediate, Verified 02/21/25 09:17) diarrhea, ROTH bisquit Allergy (Unknown, Uncoded 02/21/25 09:17) sneeze mold Allergy (Unknown, Uncoded 02/21/25 09:17) unknown yeast Allergy (Unknown, Uncoded 02/21/25 09:17) unknown Post menopausal: Yes HPI Comments Details: Presenting for annual exam. No complaints. Last Pap/HPV was negative in 12/14 Last Mammogram was BI-RADS 1 in 11/14 The patient was referred by her PCP to GI for screening colonoscopy according to her. [facility] Medical History (Updated 02/21/25 @ 09:24 by Lew Middleton MD) Well woman exam Indigestion Diarrhea Cough Exudative otitis media of left ear Acute respiratory disease Encounter for general adult medical examination with abnormal findings Hospital discharge follow-up Atypical chest pain Tremor Strain of chest wall Foot pain, bilateral Encounter for screening laboratory testing for COVID-19 virus Encounter for routine gynecological examination Colon cancer screening Nausea & vomiting Stomach upset Otitis media of right ear Blurring of vision Upper respiratory tract infection Upper respiratory tract infection Chapped lips Hearing impaired Hypoglycemia Stress Heart palpitations Premature ventricular complex Stress at work Allergies Sensorineural hearing loss Surgical History No pertinent past surgical history Family History Father No problems noted. Mother No problems noted. Social History Housing: Apartment Unable to assess alcohol history related to: Unknown Alcohol intake: never Patient Tobacco Use Status: Never used Tobacco e-Cigarette/Vaping Use: Never Used Second Hand Smoke Exposure: No service: No Current occupational status: employed Cognitive needs: No Hearing needs: Yes Vision needs: Yes Female Reproductive History Menstrual Date of last pap smear: 11/30/23 Date of Mammogram: 11/08/24 Review of Systems Const All systems reviewed & are unremarkable except as noted in HPI and below Card Reports as per HPI Resp Reports as per HPI GI Reports as per HPI and Reports no additional complaints Reports as per HPI Physical Exam Vital Signs: Last Vital Signs BP 110/60 02/21/25 09:14 BMI result Body Mass Index 25.3 Const General: cooperative, healthy appearing and comfortable Chest Chest palpation & inspection: normal inspection of the chest and normal palpation of entire chest wall Breast/axilla inspection: normal inspection of the breasts and normal inspection of the axillae Breast/axilla palpation: normal palpation of the breasts, normal palpation of the axillae and no axillary lymphadenopathy Resp Effort & Inspection: normal respiratory effort Auscultation: clear to auscultation bilaterally Percussion: percussion normal Cardio Palpation: normal PMI Rate: regular rate Rhythm: regular rhythm Heart sounds: no murmurs and no rubs Peripheral pulses: Peripheral pulses 2+ throughout GI Inspection: Yes normal to inspection Palpation (GI): Soft to palpation, nontender, no guarding, not rigid and No hepatosplenomegaly present Percussion: Yes normal to percussion Auscultation: normal bowel sounds Rectal Exam - Female: deferred General: Yes bladder normal to palpation External Female Exam: No lesion Speculum Exam - Vagina: normal appearance of the vagina, normal palpation, normal vaginal discharge and not erythematous Speculum Exam - Cervix: normal appearance of the cervix and normal palpation Bimanual exam- vagina & uterus: normal bimanual exam, normal palpation, uterine size normal, bladder normal to palpation, consistency normal and normal palpation Bimanual Exam- Adnexa, other: normal adnexae, no masses and no tenderness Assessment & Plan Assessment & Plan (1) Well woman exam: Code(s): Z01.419 - Encounter for gynecological examination (general) (routine) without abnormal findings Category: Medical Plan: Co testing not indicated this year. Counseled the patient about the recommended dietary allowance of 1200 mg of Calcium & 600 IU of vitamin D. Instructions given the patient to schedule next screening Mammogram in 11/15. The patient was referred to GI by her PCP for screening colonoscopy . The patient was instructed to perform monthly self-breast exams and schedule annual exam in a year. All questions answered and the patient verbalized understanding. Coding Level of Care Code Est Pt Prev Care 40-64y(53800) Diagnoses Well woman exam Z01.419
[2025-02-21 09:14] VITALS: BP 110/60; BMI 25.3
--- OUTSIDE RECORDS SUMMARY | 2025-02-21 09:16 | XMS_ITS | Clinical Summary ---
Author Organization [facility] Address [address] [place] [address] Care Team Providers Care Sheet Pile Hammer Operator Name Role Phone Joey Miller MD Primary Care Provider [phone] Surgical History Surgery Date Site/Laterality Comments OTHER [...] age to complete this topic Care Teams Sheet Pile Hammer Operator Relationship Specialty Start Date End Date Joey Miller MD [address] [place] [address] PCP - General Internal Medicine 01/13/21
--- OUTSIDE RECORDS SUMMARY | 2025-02-21 09:16 | XMS_ITS | Data Portability ---
Author Organization [place] - [facility], Allergy Address [address] [address] Care Team Providers Care Rental Car Ferry Driver Name Role Phone JEFFERY PENN Referring Provider JUAN CARSON Primary Care Provider [phone] Assessment Encounter Date Assessment Date Assessment LastModified [...] Lab fungus, culture, unspecifi ed specimen 2024 [place] [facility] (Centralized Electronic Ordering - All Locations), Patient Can Go To The Location Of Their Choice, [id number] 01/04/2025 12:30:24 culture, bacterial 2024 025 [place] [facility] (Centralized Electronic Ordering - All Locations), Patient Can Go To The Location Of Their Choice, [id number] 12/13/2024 11:38:31 Referral None recorded. Procedures None recorded. Surgeries None recorded. Imaging None recorded. Medication Orders ofloxacin 0.3 % ear drops 2024 [place] [id number], [address] [place], [address], 12/06/2024 14:32:40 Patient TargetsNo targets recorded. Patient InstructionsNo instructions recorded. 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 None Reported. Results Created Date Observation Date Name Description Value Unit Range Abnormal Flag Note LastModifiedBy Organization Detail LastModifiedTime 12/07/1912/10/2024 ANAER OBIC AND AEROB IC CULTU RE anaerobic culture Final report Not Available [facility] ([facility]) [address] [place], [address], 01/04/2025 12:30:23 12/07/1912/10/2024 ANAER OBIC AND AEROB IC CULTU RE result 1 COMMEN T No anaer obic growt h in 72 hours . Not Available [facility] ([facility]) [address] [place], [address], 01/04/2025 12:30:23 12/07/1912/10/2024 ANAER OBIC AND AEROB IC CULTU RE aerobic culture Final report abnormal Not Available [facility] ([facility]) [address] [place], [address], 01/04/2025 12:30:23 12/07/19 25 12/10/2024 ANAER OBIC [...] e Heavy growt h Not Available [facility] ([facility]) [address] [place], [address], 01/04/2025 12:30:23 12/07/19 25 12/10/2024 ANAER OBIC [...] compl ex, and Klebs iella aerog gris. [place] ольга that initi ally test susce ptibl e may becom e resis tant withi n a few days after initi ation of thera py. Testi ng subse quent isola ольга may be warra nted if clini felice indic ated. (CLSI M100- Ed33) Multi -Drug Resis tant Organ ism Heavy growt h Not Available [facility] ([facility]) [address] [facility], [place], [address], 01/04/2025 12:30:23 12/07/19 25 12/10/2024 ANAER OBIC [...] compl ex, and Klebs iella aerog gris. [place] о[place] that initi ally test susce ptibl e may becom e resis tant withi n a few days after initi ation of thera py. Testi ng subse quent isola ольга may be warra nted if clini felice indic ated. (CLSI M100- Ed33) Heavy growt h Not Available [facility] ([facility]) [address] [facility], [place], [address], 01/04/2025 12:30:23 12/07/19 25 12/10/2024 ANAER OBIC [...] R Vanco mycin S Not Available [facility] ([facility]) [address] [facility], [place], [address], 01/04/2025 12:30:23 12/07/19 25 12/07/2024 FUNGU S CULTU RE WITH STAIN fungus stain Final report Not Available [facility] ([facility]) [address] [facility], [place], [address], 01/04/2025 12:30:24 12/07/19 25 12/07/2024 FUNGU S CULTU RE WITH STAIN result 1 COMMEN T LULY/C alcof luor prepa ratio n: no fungu s obser naa. Not Available [facility] ([facility]) [address] [facility], [place], [address], 01/04/2025 12:30:24 12/07/19 25 01/04/2025 FUNGU S CULTU RE WITH STAIN fungus (mycology) culture Final report Not Available [facility] ([facility]) [address] [facility], [place], [address], 01/04/2025 12:30:24 12/07/19 25 01/04/2025 FUNGU S CULTU RE WITH STAIN result 1 COMMEN T No yeast or mold isola rajendra after 4 weeks . Not Available [facility] ([facility]) [address] [facility], [place], [address], 01/04/2025 12:30:24 12/07/19 25 01/24/2024 audio gram No observ ation record ed. [email or web address] Not Available 11/21 14:06:49 12/08/19 audio gram No observ ation record ed. BARCODE Not Available 2024 09:29:54 Result Notes None recorded. Problems Name Problem SNOMED Code Status Onset Date Resolution Date Notes Provider Name and Address Organization Details Recorded Time Mixed conductive and sensorineur al hearing loss, bilateral 616909600 Active 2024 JP CELESTE , AUD [address] [facility],[place] [address], [place], [address], [facility] - [facility] 13:25:44 Otorrhea of left ear 7137696236158 108 Active 2024 SHILPA COOL PA-C [address] [place] [address], [place], [address], [facility] - [facility] 13:57:34 Marginal perforation of tympanic membrane 99617720 Active 2024 SHILPA COOL PA-C [address] [place] [address], [facility] [place], [address], [place] - [facility] 13:58:22 Otorrhea 62676742 Active 2024 SHILPA COOL PA-C [address] [facility], [place], [address], [place] - [facility] 14:15:14 Problem Notes None recorded. Procedures Surgical History Date Name Laterality Status Provider Name and Address Organization Details Recorded Time 12/06/2024 Comp Audio with Tymps - 73311 & 08659 completed VIDAL WOOD [address] [facility], [place], [address], [place] - [facility] 12/06/2024 13:25:33 Imaging Results None recorded. Procedure Notes None recorded. Medical Equipment None [...] Updated DateTime 12/06/2024 154.94 cm 25.5 kg/m2 82700.97 g Reina Laird [place] [facility] 12/06/2024 13:41:46 Date Recorded Body height Body mass index (BMI) Body weight Provider Name and Address Organization Details Last Updated DateTime 01/01/2025 154.94 cm 25.5 kg/m2 67349.97 g Marianna Arguello [facility] 01/01/2025 10:22:48 Social History None recorded. Functional Status None recorded. Mental Status None recorded. Family History Nothing Reported. Medical History Condition Response Allergies/Hayfever N Heart Problems N Anxiety Y Tonsil Infections N Emphysema N Migraines N Thyroid Problems N Depression N COPD N Developmental Delay N Glaucoma N Nasal or Sinus Problems N Anemia N Immune System Disorder N Anesthesia Complications N Heart Attack (SC) N Other Skin Condition N Diabetes N Rhinitis N Bleeding Disorder N Food Allergy N Hearing Loss N Arthritis N Hyperlipidemia N Cancer N Stroke N Dementia N Nasal polyps N Asthma N Sleep Disorder N High Cholesterol N GERD/Reflux N Liver Disease N Headaches N Fibromyalgia N Hypertension N Speech Delay N Kidney Disease N Gynecological HistoryNo gynecological history recorded. Obstetrics History GPAL:G 0 P 0 0 0 0 Past Encounters Encounter ID Performer Location Encounter Start Date Encounter Closed Date Diagnosis/Indication Diagnosis SNOMED-CT Code Diagnosis ICD10 Code Diagnosis Note [id number] SHILPA COOL PA-C [facility] [address] [address] 12/06/2024 12:17:20 12/06/2024 14:04:48 Mixed conductive and sensorineural hearing loss, bilateral 273248678 H90.6 Audiologic al evaluation results: Right ear: Moderately -severe sloping to profound mixed hearing loss with excellent word recognitio n. Left ear: Severe sloping to profound mixed hearing loss with good word recognitio n. Tympanomet ry: Right Ear:Type Ad Left Ear:Type B with large volume Otorrhea of left ear 947 5097598 764544 H92.12 Marginal p erforation of tympanic membrane 34012461 H72.2X9 Otorrhea 27136995 H92.12 [id number] SHILPA COOL PA-C [facility] on [address] [place] [address] 01/01/2025 10:19:06 01/01/2025 10:37:59 Otorrhea of left ear 2847364738 944689 H92.12 Marginal p erforation of tympanic membrane 99717785 H72.2X9 Mixed cond uctive and sensorineural hearing loss, bilateral 522416367 H90.6 Audiologic al evaluation results: Right ear: Moderately -severe sloping to profound mixed hearing loss with excellent word recognitio n. Left ear: Severe sloping to profound mixed hearing loss with good word recognitio n. Tympanomet ry: Right Ear:Type Ad Left Ear:Type B with large volume Health Concerns Section Related Observation LastModified by Organization Detai ls LastModified Time None Recorded Concern Status LastModified by Organization Details LastModified Time None Recorded Advance Directives Directive None Recorded Payers Insurance Date Sequence Insurance Name Policy Number Policy Barnes Covered Member ID Barnes Member ID Guarantor Name 12/29/2024 1 [facility] NET PLAN (MEDICAID HMO) [place] Snow [id number] Katia Snow Notes Date Note Type Note Provider Name and Address Organization Details Recorded Time 12/06/2024 text/html 59 year old yoselyn call presents to the office accompanied by her mother. She reports left ear drainage off and on since last January when she was fitted for new hearing aids at [facility]. She has used hearing aids for the past 30 years. She reports that six weeks ago she was sick with upper respiratory infection and was told that she had fluid in the left ear. It has been draining for the past six weeks. She has not been on any otic drops. She has continued to use both hearing aids. SELMA CARMONA MD [address] [facility],[address], [address], [facility] 12/06/2024 17:12:54 01/01/2025 text/html 59 year old yoselyn call presents for follow up of her left otorrhea. She used Ofloxacin drops and has had no further drainage. She reports some right ear itching. TAO GAMBINO MD [address] [facility],[place] [address], [place], [address], [facility] 01/01/2025 12:55:15 OBGyn Episode No OBEpisode recorded.
== END 2025-02-21 09:33 | disposition home or self-care (01) ==
LOC: HO.HWS 09:05
PROVIDERS: PCP Internal Medicine; Visit Provider Obstetrics & Gynecology
DX: Z01.419 Encounter for gynecological examination (general) (routine) without abnormal findings (principal)
CPT/HCPCS: 99396; 99459

== ENCOUNTER → 2025-02-21 09:05 | Outpatient (BNVA) | payer OTHER, SELFPAY | PROVIDERS: PCP Internal Medicine; Visit Provider Obstetrics & Gynecology | DX: Z01.419 Encounter for gynecological examination (general) (routine) without abnormal findings (principal) | CPT/HCPCS: 99396 ==

== ENCOUNTER 2025-03-02 08:23 | Outpatient (REF) | payer OTHER, SELFPAY ==
--- OUTSIDE RECORDS SUMMARY | 2025-03-02 08:29 | XMS_ITS | Clinical Summary ---
Author Organization [facility] Address [address] [place] [address] Care Team Providers Care Avionics Mechanic Name Role Phone Joey Miller MD Primary Care Provider [phone] Surgical History Surgery Date Site/Laterality Comments OTHER [...] 2023-2 5 season) 2024 Influenza Vaccine (#1) 2025 RSV Immunization Adult Patie nts (1 [...] 5 Years) and At-Risk Patients (6 to 49 Years) Aged Out No longer eligible b ased on patient's age to complete this topic RSV Immunization Patients Un paula 20 months Aged Out No longer eligible b ased on patient's age to complete this topic Varicella Vaccines Aged Out No longer eligible based on patient's age to complete this topic Care Teams Avionics Mechanic Relationship Specialty Start Date End Date Joey Miller MD [address] [place] [address] PCP - General Internal Medicine 01/13/21
--- OUTSIDE RECORDS SUMMARY | 2025-03-02 08:29 | XMS_ITS | Data Portability ---
Author Organization [place] - [facility], Allergy Address [address] [address] Care Team Providers Care Freelance Designer Name Role Phone JEFFERY PENN Referring Provider JUAN CARSON Primary Care Provider [phone] Assessment Encounter Date Assessment Date Assessment LastModified [...] Lab fungus, culture, unspecifi ed specimen 2024 [place] [facility] (Centralized Electronic Ordering - All Locations), Patient Can Go To The Location Of Their Choice, [address] 01/04/2025 12:30:24 culture, bacterial 2024 025 [place] [facility] (Centralized Electronic Ordering - All Locations), Patient Can Go To The Location Of Their Choice, [address] 12/13/2024 11:38:31 Referral None recorded. Procedures None recorded. Surgeries None recorded. Imaging None recorded. Medication Orders ofloxacin 0.3 % ear drops 2024 [place] [id number], [address] [place], [address], 12/06/2024 14:32:40 Patient TargetsNo targets recorded. Patient InstructionsNo instructions recorded. 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 None Reported. Results Created Date Observation Date Name Description Value Unit Range Abnormal Flag Note LastModifiedBy Organization Detail LastModifiedTime 12/07/1912/10/2024 ANAER OBIC AND AEROB IC CULTU RE anaerobic culture Final report Not Available [facility] ([facility]) [address] [place], [address], 01/04/2025 12:30:23 12/07/1912/10/2024 ANAER OBIC AND AEROB IC CULTU RE result 1 COMMEN T No anaer obic growt h in 72 hours . Not Available [facility] ([facility]) [address] [place], [address], 01/04/2025 12:30:23 12/07/1912/10/2024 ANAER OBIC AND AEROB IC CULTU RE aerobic culture Final report abnormal Not Available [facility] ([facility]) [address] [place], [address], 01/04/2025 12:30:23 12/07/19 25 12/10/2024 ANAER OBIC [...] e Heavy growt h Not Available [facility] ([facility]) [address] [place], [address], 01/04/2025 12:30:23 12/07/19 25 12/10/2024 ANAER OBIC [...] compl ex, and Klebs iella aerog gris. [place] ольга that initi ally test susce ptibl e may becom e resis tant withi n a few days after initi ation of thera py. Testi ng subse quent isola ольга may be warra nted if clini felice indic ated. (CLSI M100- Ed33) Multi -Drug Resis tant Organ ism Heavy growt h Not Available [facility] ([facility]) [address] [facility], [place], [address], 01/04/2025 12:30:23 12/07/19 25 12/10/2024 ANAER OBIC [...] compl ex, and Klebs iella aerog gris. [place] о[place] that initi ally test susce ptibl e may becom e resis tant withi n a few days after initi ation of thera py. Testi ng subse quent isola ольга may be warra nted if clini felice indic ated. (CLSI M100- Ed33) Heavy growt h Not Available [facility] ([facility]) [address] [facility], [place], [address], 01/04/2025 12:30:23 12/07/19 25 12/10/2024 ANAER OBIC [...] R Vanco mycin S Not Available [facility] ([facility]) [address] [facility], [place], [address], 01/04/2025 12:30:23 12/07/19 25 12/07/2024 FUNGU S CULTU RE WITH STAIN fungus stain Final report Not Available [facility] ([facility]) [address] [facility], [place], [address], 01/04/2025 12:30:24 12/07/19 25 12/07/2024 FUNGU S CULTU RE WITH STAIN result 1 COMMEN T LULY/C alcof luor prepa ratio n: no fungu s obser naa. Not Available [facility] ([facility]) [address] [facility], [place], [address], 01/04/2025 12:30:24 12/07/19 25 01/04/2025 FUNGU S CULTU RE WITH STAIN fungus (mycology) culture Final report Not Available [facility] ([facility]) [address] [facility], [place], [address], 01/04/2025 12:30:24 12/07/19 25 01/04/2025 FUNGU S CULTU RE WITH STAIN result 1 COMMEN T No yeast or mold isola rajendra after 4 weeks . Not Available [facility] ([facility]) [address] [facility], [place], [address], 01/04/2025 12:30:24 12/07/19 25 01/24/2024 audio gram No observ ation record ed. [email or web address] Not Available 11/21 14:06:49 12/08/19 audio gram No observ ation record ed. BARCODE Not Available 2024 09:29:54 Result Notes None recorded. Problems Name Problem SNOMED Code Status Onset Date Resolution Date Notes Provider Name and Address Organization Details Recorded Time Mixed conductive and sensorineur al hearing loss, bilateral 995563108 Active 2024 JP CELESTE , AUD [address] [facility],[place] [address], [place], [address], [facility] [place] 13:25:44 Otorrhea of left ear 5238493496425 108 Active 2024 SHILPA COOL PA-C [address] [address], [place], [address], [facility] - [facility] [place] 13:57:34 Marginal perforation of tympanic membrane 30545917 Active 2024 SHILPA COOL PA-C [address] [address], [facility] [place], [address], [place] - [facility] [place] 13:58:22 Otorrhea 26059517 Active 2024 SHILPA COOL PA-C [address] [facility], [address], [place], [address], [place] - [facility] [place] 14:15:14 Problem Notes None recorded. Procedures Surgical History Date Name Laterality Status Provider Name and Address Organization Details Recorded Time 12/06/2024 Comp Audio with Tymps - 81770 & 16552 completed [address] [facility] [address], [place], [address], [place] - [facility] 12/06/2024 13:25:33 Imaging Results None recorded. Procedure [...] Updated DateTime 12/06/2024 154.94 cm 25.5 kg/m2 70930.97 g Reina Laird [place] - [facility] 12/06/2024 13:41:46 Date Recorded Body height Body mass index (BMI) Body weight Provider Name and Address Organization Details Last Updated DateTime 01/01/2025 154.94 cm 25.5 kg/m2 24228.97 g Marianna Arguello [facility] 01/01/2025 10:22:48 Social History None recorded. Functional Status None recorded. Mental Status None recorded. Family History Nothing Reported. Medical History Condition Response Allergies/Hayfever N Heart Problems N Anxiety Y Tonsil Infections N Emphysema N Migraines N Thyroid Problems N Glaucoma N Developmental Delay N Depression N COPD N Nasal or Sinus Problems N Anemia N Immune System Disorder N Anesthesia Complications N Heart Attack (DC) N Other Skin Condition N Diabetes N [...] SNOMED-CT Code Diagnosis ICD10 Code Diagnosis Note [id number] SHILPA COOL PA-C [facility] [address] [address] 12/06/2024 12:17:20 12/06/2024 14:04:48 Mixed conductive and sensorineural hearing loss, bilateral [id number] H90.6 Audiologic al evaluation results: Right ear: Moderately -severe sloping to profound mixed hearing loss with excellent word recognitio n. Left ear: Severe sloping to profound mixed hearing loss with good word recognitio n. Tympanomet ry: Right Ear:Type Ad Left Ear:Type B with large volume Otorrhea of left ear 141 3757591 725484 H92.12 Marginal p erforation of tympanic membrane 83635999 H72.2X9 Otorrhea 09490138 H92.12 16416 SHILPA COOL PA-C [facility] on [address] [place] [address] 01/01/2025 10:19:06 01/01/2025 10:37:59 Otorrhea of left ear 7169290631 517299 H92.12 Marginal p erforation of tympanic membrane 50614313 H72.2X9 Mixed cond uctive and sensorineural hearing loss, bilateral 795053282 H90.6 Audiologic al evaluation results: Right ear: [...] Barnes Member ID Guarantor Name 12/29/2024 1 [facility] NET PLAN (MEDICAID HMO) [place] Snow [id number] Katia Snow Notes Date Note Type Note Provider Name and Address Organization Details Recorded Time 12/06/2024 text/html 59 year old yoselyn call presents to the office accompanied by her mother. She reports left ear drainage off and on since last January when she was fitted for new hearing aids at [facility]. She has used hearing aids for the past 30 years. She reports that six weeks ago she was sick with upper respiratory infection and was told that she had fluid in the left ear. It has been draining for the past six weeks. She has not been on any otic drops. She has continued to use both hearing aids. SELMA CARMONA MD [address] [facility],[address], [address], [facility] 12/06/2024 17:12:54 01/01/2025 text/html 59 year old yoselyn call presents for follow up of her left otorrhea. She used Ofloxacin drops and has had no further drainage. She reports some right ear itching. TAO GAMBINO MD [address] [facility],[place] [address], [place], [address], [facility] 01/01/2025 12:55:15 OBGyn Episode No OBEpisode recorded.
--- NOTE | 2025-03-02 10:47 | MHC.AU.HA3 ---
Hearing Instrument Follow-Up- Binaural Date of Visit: 03/02/25 Bead Filler Used: Right Ear: Make, Model, Color, Serial Number: Oticon Own 3 FS SN: [id number] Color: Beige Gallery Host Repair Warranty: 04/16/2027 Gallery Host Loss and Damage Warranty: 04/16/2027 [facility] Service Plan: n/a Battery Size: 312 Regional Hr Manager/Slim Tube: Earmold/Dome/CShell/SlimTip: Type of Wax Guard: ProWax miniFit Dispensed By: [facility] Date of Fittin03/23/2024 Left Ear: Make, Model, Color, Serial Number: Oticon Own 3 FS SN: [id number] Color: Beige Gallery Host Repair Warranty: 04/16/2027 Gallery Host Loss and Damage Warranty: 04/16/2027 [facility] Service Plan: n/a Battery Size: 312 Regional Hr Manager/Slim Tube: Earmold/Dome/CShell/SlimTip: Type of Wax Guard: ProWax miniFit Dispensed By: [facility] Date of Fittin03/23/2024 Follow-Up Summary: Katia reports that she might need the hearing aids turned up. She feels like she needs to increase the volume to hear better but if she turns them up too much she struggles with getting a headache behind her left ear. She reports follow up with ENT regarding her ongoing TM perf issues next week. Cleaned hearing aids (2), replaced wax guards (2), [place]id[place] [address] 6 units. Listening check positive. Increased gain slightly at Katia's request with recommendation that she return following ENT visit and updated audiogram as fine tuning changes may be needed if her hearing is changing at all with her middle ear issues. Reviewed VC use, Katia reported that she was not aware she could turn aids down, thought they only went up. Recommendations: Recommendations: Hearing instrument follow-up or maintenance as needed. Diagnosis Code(s): Primary Diagnosis: H90.6 Mixed Hearing Loss, Bilateral Signature: Provider: Sammi Patel, [facility]
== END 2025-03-02 08:24 | disposition home or self-care (01) ==
LOC: HO.HAP 08:23
PROVIDERS: Visit Provider Internal Medicine
DX: Z46.1 Encounter for fitting and adjustment of hearing aid (principal); H90.6 Mixed conductive and sensorineural hearing loss, bilateral
CPT/HCPCS: 92593; 99499; V5266

== ENCOUNTER 2025-03-12 13:50 | Outpatient (REF) | payer OTHER, SELFPAY ==
--- OUTSIDE RECORDS SUMMARY | 2025-03-12 14:39 | XMS_ITS | Clinical Summary ---
Author Organization [facility] Address [address] [place] [address] Care Team Providers Care Oyster Floater Name Role Phone Joey Miller MD Primary Care Provider [phone] Surgical History Surgery Date Site/Laterality Comments OTHER [...] 2) 2013 Colorectal Cancer Screening: Colonoscopy 08/02/2022 HIV Screening 08/02/2022 Hepatitis C Screening 08/02/2022 Social Influencers of Health Screening 08/02/2022 COVID-19 Vaccine ( - 2023-2 5 season) 2024 Depression Screening 08/23/2024 Influenza Vaccine (#1) 2025 RSV Immunization Adult [...] age to complete this topic Care Teams Oyster Floater Relationship Specialty Start Date End Date Joey Mliler MD [address] [place] [address] PCP - General Internal Medicine 01/13/21
--- OUTSIDE RECORDS SUMMARY | 2025-03-12 14:40 | XMS_ITS | Data Portability ---
Author Organization [place] [facility], Allergy Address [address] [address] Care Team Providers Care Laborer High Density Press Name Role Phone JEFFERY PENN Referring Provider [phone] JUAN CARSON Primary Care Provider [phone] Assessment Encounter Date Assessment Date Assessment LastModified [...] left TM perforation. Not available 01/01/2025 10:39:31 03/07/2025 03/07/2025 59yo female with longstanding SNHL presents for reevaluation of left-sided tympanic membrane perforation. Otologic exam demonstrates stable 20% left-sided marginal TM perforation anterior inferiorly. Patient reports hearing is stable. We discussed observation versus tympanoplasty, and patient is not interested in surgical intervention at this time. She will return to [facility] audiology as needed for hearing aid adjustments. Recommend annual follow-up with repeat audiometric testing, sooner with concerns. [email or web address] Not available 03/07/2025 11:33:54 Plan of Treatment Reminders Order Date Submit Date Provider Last Modified By Organization Details Last Modified Time Details Appointments None recorded. Lab fungus, culture, unspecified specimen 2024 LOAN [facility] (Centralized Electronic Ordering - All Locations), Patient Can Go To The Location Of Their Choice, [id number] 12:30:24 culture, bacterial 2024 LOAN [facility] (Centralized Electronic Ordering - All Locations), Patient Can Go To The Location Of Their Choice, [address] 11:38:31 Referral None recorded. Procedures None recorded. Surgeries None recorded. Imaging None recorded. Medication Orders ofloxacin 0.3 % ear drops 2024 [id number], [address] [place], [address], 11:05:45 Patient TargetsNo targets recorded. Patient InstructionsNo instructions recorded. 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 None Reported. Results Created Date Observation Date Name Description Value Unit Range Abnormal Flag Note LastModifiedBy Organization Detail LastModifiedTime 12/07/1912/10/2024 ANAER OBIC AND AEROB IC CULTU RE anaerobic culture Final report Not Available [facility] ([facility]) [address] [facility], [place], [address], 01/04/2025 12:30:23 12/07/1912/10/2024 ANAER OBIC AND AEROB IC CULTU RE result 1 COMMEN T No anaer obic growt h in 72 hours . Not Available [facility] ([facility]) [address] [facility], [place], [address], 01/04/2025 12:30:23 12/07/19 25 12/10/2024 ANAER OBIC AND AEROB IC CULTU RE aerobic culture Final report abnormal Not Available [facility] ([facility]) [address] [facility], [place], [address], 01/04/2025 12:30:23 12/07/19 25 12/10/2024 ANAER OBIC [...] e Heavy growt h Not Available [facility] ([facility]) [address] [facility], [place], [address], 01/04/2025 12:30:23 12/07/19 25 12/10/2024 ANAER OBIC [...] compl ex, and Klebs iella aerog gris. Lenore ольга that initi ally test susce ptibl e may becom e resis tant withi n a few days after initi ation of thera py. Testi ng subse quent isola ольга may be warra nted if clini felice indic ated. (CLSI M100- Ed33) Multi -Drug Resis tant Organ ism Heavy growt h Not Available [facility] ([facility]) [address] [facility], [place], [address], 01/04/2025 12:30:23 12/07/19 25 12/10/2024 ANAER OBIC [...] compl ex, and Klebs iella aerog gris. Lenore ольга that initi ally test susce ptibl e may becom e resis tant withi n a few days after initi ation of thera py. Testi ng subse quent isola ольга may be warra nted if clini felice indic ated. (CLSI M100- Ed33) Heavy growt h Not Available [facility] ([facility]) [address] [facility], [place], [address], 01/04/2025 12:30:23 12/07/19 25 12/10/2024 ANAER OBIC [...] R Vanco mycin S Not Available [facility] ([facility]) [address] [facility], [place], [address], 01/04/2025 12:30:23 12/07/19 25 12/07/2024 FUNGU S CULTU RE WITH STAIN fungus stain Final report Not Available [facility] ([facility]) [address] [facility], [place], [address], 01/04/2025 12:30:24 12/07/19 25 12/07/2024 FUNGU S CULTU RE WITH STAIN result 1 COMMEN T LULY/C alcof luor prepa ratio n: no fungu s obser naa. Not Available [facility] ([facility]) [address] [facility], [place], [address], 01/04/2025 12:30:24 12/07/19 25 01/04/2025 FUNGU S CULTU RE WITH STAIN fungus (mycology) culture Final report Not Available [facility] ([facility]) [address] [facility], [place], [address], 01/04/2025 12:30:24 12/07/19 25 01/04/2025 FUNGU S CULTU RE WITH STAIN result 1 COMMEN T No yeast or mold isola rajendra after 4 weeks . Not Available [facility] ([facility]) [address] [facility], [place], [address], 01/04/2025 12:30:24 12/07/19 25 01/24/2024 audio gram No observ ation record ed. [email or web address] Not Available 11/21 14:06:49 12/08/19 audio gram No observ ation record ed. BARCODE Not Available 2024 09:29:54 Result Notes None recorded. Problems Name Problem SNOMED Code Status Onset Date Resolution Date Notes Provider Name and Address Organization Details Recorded Time Mixed conductive and sensorineur al hearing loss, bilateral 364557649 Active 2024 JP CELESTE , AUD [address] [address], [place], [address], [facility] 13:25:44 Otorrhea of left ear 1570146180115 108 Active 2024 SHILPA COOL PA-C [address], [place], [address], [facility] 13:57:34 Marginal perforation of tympanic membrane 71859043 Active 2024 SHILPA COOL PA-C [address], [place], [address], [facility] [place] 13:58:22 Otorrhea 79316448 Active 2024 SHILPA COOL PA-C [address] [facility] [address] [address], [place], [address], [facility] [place] 14:15:14 Mixed conductive and sensorineur al hearing loss, bilateral 114529287 Active 2024 TIGRE MCCAIN PA-C [address] [facility] [address], [place], [address], [facility] - [facility] 11:34:00 Mixed conductive AND sensorineur al hearing loss 34064355 Active 2024 TIGRE MCCAIN PA-C [address] [facility] [address], [place], [address], [facility] 11:34:14 Problem Notes None recorded. Procedures Surgical History Date Name Laterality Status Provider Name and Address Organization Details Recorded Time 12/06/2024 Comp Audio with Tymps - 46865 & 63392 completed VIDAL WOOD [address] [facility] [address], [place], [address], [facility] - [facility] 12/06/2024 13:25:33 Imaging Results None recorded. Procedure Notes None recorded. Medical Equipment None Reported. Allergies No known drug allergies Medications Name Sig Start Date Stop Date Status Note LastModified by Organization Details LastModified Time lidocaine 4 % topical patch APPLY 1 PATCH TO PAINFUL AREA S) ON BACK ONCE DAILY NEEDED. LEAVE ON FOR NO MORE THAN 12 HOURS, AND LEAVE OFF FOR 03/07 completed Not Available Not Available Not Available tizanidine 4 mg tablet TAKE 1/2 2MG) BY MOUTH TWICE DAILY NEEDED FOR MUSCLE SPASTICIT Y. 03/07 completed Not Available Not Available Not Available omeprazole 40 mg capsule,del ayed release TAKE ONE CAPSULE BY MOUTH EVERY DAY 03/07 completed Not Available Not Available Not Available ofloxacin 0.3 % ear drops INSTILL 4 DROPS IN AFFECTED EAR S) TWICE DAILY FOR 7 DAYS. 03/07 completed Not Available Not Available Not Available amoxicillin 875 mg tablet TAKE ONE TABLET BY MOUTH EVERY 12 HOURS 12/06 completed Not Available Not Available Not Available Mapap (acetaminop hen) 500 mg capsule TAKE TWO CAPSULES BY MOUTH EVERY 6 HOURS NEEDED FOR PAIN 03/07 completed Not Available Not Available Not Available doxycycline monohydrate 100 mg capsule TAKE ONE CAPSULE BY MOUTH TWICE A DAY 12/06 completed Not Available Not Available Not Available pantoprazol e 40 mg tablet,gilberto yed release TAKE ONE TABLET BY MOUTH EVERY DAY 03/07 completed Not Available Not Available Not Available hydroxyzine HCl 25 mg tablet TAKE ONE TABLET BY MOUTH EVERY 6 HOURS NEEDED 03/07 completed Not Available Not Available Not Available hydroxyzine HCl 10 mg tablet TAKE ONE HALF TABLET EVERY SIX HOURS NEEDED 03/07 completed Not Available Not Available Not Available fluticasone propionate 50 mcg/actuati on nasal spray,suspe nsion SPRAY 1 SPRAY IN EACH NOSTRIL ONCE DAILY FOR 7 DAYS 03/07 completed Not Available Not Available Not Available amoxicillin 875 mg-potassiu m clavulanate 125 mg tablet TAKE 1 TABLET BY MOUTH TWICE A DAY 12/06 completed Not Available Not Available Not Available azithromyci n 500 mg tablet TAKE ONE TABLET BY MOUTH EVERY DAY FOR 3 DAYS 12/06 completed Not Available Not Available Not Available escitalopra m 10 mg tablet TAKE ONE TABLET BY MOUTH EVERY DAY FOR ANXIETY. active Not Available Not Available No t Available calcium 600 mg (as carbonate)- vitamin D3 10 mcg (400 unit) tablet TAKE TWO TABLETS BY MOUTH EVERY DAY active Not Available Not Available No t Available Vitals Date Recorded Body height Body mass index (BMI) Body weight Provider Name and Address Organization Details Last Updated DateTime 12/06/2024 154.94 cm 25.5 kg/m2 98273.97 g Reina Laird [place] [facility] 12/06/2024 13:41:46 Date Recorded Body height Body mass index (BMI) Body weight Provider Name and Address Organization Details Last Updated DateTime 01/01/2025 154.94 cm 25.5 kg/m2 45753.97 g Marianna Hooperos [place] [facility] 01/01/2025 10:22:48 Date Recorded Body height Body mass index (BMI) Body weight Provider Name and Address Organization Details Last Updated DateTime 03/07/2025 154.94 cm 24.2 kg/m2 94282.82 g Madonna Khancj [place] [facility] 03/07/2025 11:05:24 Social History None recorded. Functional Status None recorded. Mental Status None recorded. Family History Nothing Reported. Medical History Condition Response Allergies/Hayfever N Heart Problems N Anxiety Y Tonsil Infections N Emphysema N Migraines N Thyroid Problems N Depression N COPD N Developmental Delay N Glaucoma N Nasal or Sinus Problems N Anemia N Immune System Disorder N Anesthesia Complications N Heart Attack ([place]) N Other Skin Condition N Diabetes N [...] SNOMED-CT Code Diagnosis ICD10 Code Diagnosis Note [id number] SHILPA COOL PA-C [facility] [address] [address] 12/06/2024 12:17:20 12/06/2024 14:04:48 Mixed conductive and sensorineural hearing loss, bilateral 747045329 H90.6 Audiologic al evaluation results: Right ear: Moderately -severe sloping to profound mixed hearing loss with excellent word recognitio n. Left ear: Severe sloping to profound mixed hearing loss with good word recognitio n. Tympanomet ry: Right Ear:Type Ad Left Ear:Type B with large volume Otorrhea of left ear 135 1710138 875260 H92.12 Marginal p erforation of tympanic membrane 95887174 H72.2X9 Otorrhea 82053993 H92.12 [id number] SHILPA COOL PA-C [facility] on [address] [place] [address] 01/01/2025 10:19:06 01/01/2025 10:37:59 Otorrhea of left ear 8166232861 238064 H92.12 Marginal p erforation of tympanic membrane 77190634 H72.2X9 Mixed cond uctive and sensorineural hearing loss, bilateral 161462884 H90.6 Audiologic al evaluation results: Right ear: Moderately -severe sloping to profound mixed hearing loss with excellent word recognitio n. Left ear: Severe sloping to profound mixed hearing loss with good word recognitio n. Tympanomet ry: Right Ear:Type Ad Left Ear:Type B with large volume [id number] TIGRE MCCAIN PA-C [facility] [address] [address] 03/07/2025 11:01:01 03/07/2025 11:25:39 Marginal perforation of tympanic membrane 65633049 H72.2X9 Mixed cond uctive AND sensorineural hearing loss 94486431 H90.A32 Health Concerns Section Related Observation LastModified by Organization Detai ls LastModified Time None Recorded Concern Status LastModified by Organization Details LastModified Time None Recorded Advance Directives Directive None Recorded Payers Insurance Date Sequence Insurance Name Policy Number Policy Barnes Covered Member ID Barnes Member ID Guarantor Name 03/07/2025 1 [facility] (MEDICAID HMO) [place] Katia Snow [id number] Katia Snow Notes Date Note Type Note Provider Name and Address Organization Details Recorded Time 12/06/2024 text/html 59 year old yoselyn call presents to the office accompanied by her mother. She reports left ear drainage off and on since last January when she was fitted for new hearing aids at [facility] [place]. She has used hearing aids for the past 30 years. She reports that six weeks ago she was sick with upper respiratory infection and was told that she had fluid in the left ear. It has been draining for the past six weeks. She has not been on any otic drops. She has continued to use both hearing aids. SELMA CARMONA MD [address] [place] [address], [place], [address], [facility] 12/06/2024 17:12:54 01/01/2025 text/html 59 year old yoselyn call presents for follow up of her left otorrhea. She used Ofloxacin drops and has had no further drainage. She reports some right ear itching. TAO GAMBION MD [address] [facility] [address], [place], [address], [facility] 01/01/2025 12:55:15 03/07/2025 text/html 59yo female with longstanding SNHL presents for reevaluation of left-sided tympanic membrane perforation. This was noticed on exam after acute ear infection 3 months ago. Patient reports hearing is stable. She wears bilateral amplification dispensed by an emulsion operator at the [facility]. She transferred audiology care to [facility], and hearing aids were recently adjusted. She has been using hearing aids for the past 30 years. SELMA CARMONA MD [address] [facility] [address], [place], [address], [facility] 03/07/2025 17:38:27 OBGyn Episode No OBEpisode recorded.
--- NOTE | 2025-03-21 12:53 | MHC.AU.HA3 ---
Hearing Instrument Follow-Up- Binaural Date of Visit: 03/12/25 Right Ear: Make, Model, Color, Serial Number: Oticon Own 3 FS SN: [id number] Color: Beige Lining Inserter Repair Warranty: 04/16/2027 Lining Inserter Loss and Damage Warranty: 04/16/2027 [facility] Service Plan: n/a Battery Size: 312 Consumer Affairs Specialist/Slim Tube: Earmold/Dome/CShell/SlimTip: Type of Wax Guard: ProWax miniFit Dispensed By: [facility] Date of Fittin03/23/2024 Left Ear: Make, Model, Color, Serial Number: Oticon Own 3 FS SN: [id number] Color: Beige Lining Inserter Repair Warranty: 04/16/2027 Lining Inserter Loss and Damage Warranty: 04/16/2027 [facility] Service Plan: n/a Battery Size: 312 Consumer Affairs Specialist/Slim Tube: Earmold/Dome/CShell/SlimTip: Type of Wax Guard: ProWax miniFit Dispensed By: [facility] Date of Fittin03/23/2024 Follow-Up Summary: Katia reports that she would like the hearing aids restored to the settings prior (02/05/25) to her last visit (03/02/25) where they were turned up slightly at her request. Restored previous settings. Recommendations: Recommendations: Hearing instrument follow-up or maintenance as needed. Diagnosis Code(s): Primary Diagnosis: H90.6 Mixed Hearing Loss, Bilateral Signature: Provider: Sammi Patel, CCC-A
== END 2025-03-12 13:51 | disposition home or self-care (01) ==
LOC: HO.HAP 13:50
PROVIDERS: Visit Provider Internal Medicine
DX: Z13.89 Encounter for screening for other disorder (principal)

== ENCOUNTER 2025-04-13 10:53 | Outpatient (REF) | payer OTHER, SELFPAY ==
--- OUTSIDE RECORDS SUMMARY | 2025-04-13 10:57 | XMS_ITS | Clinical Summary ---
Author Organization [facility] Address [address] [place] [address] Care Team Providers Care Ice Cream Freezer Name Role Phone Joey Miller MD Primary Care Provider [phone] Surgical History Surgery Date Site/Laterality Comments OTHER [...] age to complete this topic Care Teams Ice Cream Freezer Relationship Specialty Start Date End Date Joey Miller MD [address] [place] [address] PCP - General Internal Medicine 01/13/21
--- NOTE | 2025-04-13 14:21 | MHC.AU.HA3 ---
Hearing Instrument Follow-Up- Binaural Date of Visit: 04/13/25 Right Ear: Make, Model, Color, Serial Number: Oticon Own 3 FS SN: [id number] Color: Beige Personal Lines Insurance Advisor Repair Warranty: 04/16/2027 Personal Lines Insurance Advisor Loss and Damage Warranty: 04/16/2027 [facility] Service Plan: n/a Battery Size: 312 Type of Wax Guard: ProWax miniFit Dispensed By: [facility] Date of Fittin03/23/2024 Left Ear: Make, Model, Color, Serial Number: Oticon Own 3 FS SN: [id number] Color: Beige Personal Lines Insurance Advisor Repair Warranty: 04/16/2027 Personal Lines Insurance Advisor Loss and Damage Warranty: 04/16/2027 [facility] Service Plan: n/a Battery Size: 312 Type of Wax Guard: ProWax miniFit Dispensed By: [employer] Date of Fittin03/23/2024 Follow-Up Summary: Katia reports that she first scheduled this appointment because she felt the hearing aids might still be too loud after her last adjustment on 03/12/2025 citing headaches. She reports that her PCP has said she may have been having headaches because she was starting a new diet and her body was adjusting to that change. Katia states now feeling that the hearing aids aren't loud enough and she needs to turn them up. She reports expecting surgery to repair left TM some time next year. Asked me to check to see if perforation is still present As. Clear canals Au, perforation not visualized As, however entire TM was not visible due to curve of canal. Cleaned hearing aids (2), replaced wax guards (2), [place] [address] 4 units. Katia reports hearing aids sound louder after cleaning. Did not adjust hearing aids today. As Katia has returned on several occasions to have the hearing aids turned up and back down, counseled Katia to use the VC as needed to take control of her comfort and audibility. Practiced VC use. Katia noted concern that her hearing might be getting worse on the right side. Recommended return to ENT for evaluation or request referral from PCP for evaluation here. Recommendations: Recommendations: Hearing instrument follow-up or maintenance as needed. Diagnosis Code(s): Primary Diagnosis: H90.A21 SNHL, Unilateral Right Ear, W/Restricted Contralateral Hearing Secondary Diagnosis: H90.A32 Mixed HL, Unilateral, Left Ear, W/Restricted Contralateral Signature: Provider: Sammi Patel, CCC-A
== END 2025-04-13 10:54 | disposition home or self-care (01) ==
LOC: HO.HAP 10:53
PROVIDERS: Visit Provider Internal Medicine
DX: Z46.1 Encounter for fitting and adjustment of hearing aid (principal); H90.A21 Sensorineural hearing loss, unilateral, right ear, with restricted hearing on the contralateral side; H90.A32 Mixed conductive and sensorineural hearing loss, unilateral, left ear with restricted hearing on the contralateral side
CPT/HCPCS: 92593; 99499; V5266

== ENCOUNTER 2025-05-17 08:22 | Outpatient (REF) | payer OTHER, SELFPAY ==
--- OUTSIDE RECORDS SUMMARY | 2025-05-17 08:52 | XMS_ITS | Clinical Summary ---
Author Organization [facility] Address [address] [place] [address] Care Team Providers Care Datawarehouse Developer Name Role Phone Joey Miller MD Primary Care Provider [phone] Surgical History Surgery Date Site/Laterality Comments OTHER [...] 08/02/2022 Social Influencers of Health Screening 08/02/2022 Depression Screening 08/23/2024 COVID-19 Vaccine ( - 2023-2 5 season) 2025 Influenza Vaccine (#1) 2025 RSV Immunization Adult [...] age to complete this topic Care Teams Datawarehouse Developer Relationship Specialty Start Date End Date Joey Miller MD [address] [place] [address] PCP - General Internal Medicine 01/13/21
== END 2025-05-17 08:23 | disposition home or self-care (01) ==
LOC: HO.HAP 08:22
PROVIDERS: Visit Provider Internal Medicine
DX: Z46.1 Encounter for fitting and adjustment of hearing aid (principal); H90.A32 Mixed conductive and sensorineural hearing loss, unilateral, left ear with restricted hearing on the contralateral side; H90.A21 Sensorineural hearing loss, unilateral, right ear, with restricted hearing on the contralateral side
CPT/HCPCS: V5266

== ENCOUNTER 2025-06-13 15:37 | Outpatient (REF) | payer OTHER, SELFPAY ==
--- OUTSIDE RECORDS SUMMARY | 2025-06-13 21:44 | XMS_ITS | Clinical Summary ---
Author Organization [facility] Address [address] [place] [address] Care Team Providers Care Edger Runner Name Role Phone Joey Miller MD Primary Care Provider Surgical History Surgery Date Site/Laterality Comments OTHER [...] Last Done Comments Breast Cancer Screening 1963 Colorectal Cancer Screening: Colonoscopy 1963 DTaP,Tdap,and Td Vaccines (1 - Tdap) 1982 Cervical Cancer Screening: P ap Smear 1984 Pneumococcal Vaccine: 50+ Ye ars (1 of 1 - PCV) 2013 Zoster Vaccines (1 of 2) 2013 HIV Screening 08/02/2022 Hepatitis C Screening 08/02/2022 Social Influencers of Health Screening 08/02/2022 Depression Screening 08/23/2024 COVID-19 Vaccine (1 - 2023-2 5 season) 2025 Influenza Vaccine [...] age to complete this topic Care Teams Edger Runner Relationship Specialty Start Date End Date Joey Miller MD [address] [place] [address] PCP - General Internal Medicine 01/13/21
--- OUTSIDE RECORDS SUMMARY | 2025-06-13 21:44 | XMS_ITS | Data Portability ---
Author Organization [place] - [facility], Allergy Address [address] [address] Care Team Providers Care Home Stager Name Role Phone JEFFERY PENN Referring Provider JUAN CARSON Primary Care Provider [phone] Assessment Encounter Date Assessment Date Assessment LastModified [...] at this time. She will return to [facility] audiology as needed for hearing aid adjustments. Recommend annual follow-up with repeat audiometric testing, sooner with concerns. [email or web address] Not available 03/07/2025 11:33:54 05/25/2025 05/25/2025 59yo female with longstanding SNHL presents for reevaluation of left-sided tympanic membrane perforation. Otologic exam demonstrates stable 20% left-sided marginal TM perforation anterior inferiorly, this is table. We discussed observation versus tympanoplasty, and patient is not interested in surgical intervention at this time, currently saving up money for this. She will let us know when ready. Audio is overall stable since last visit, slightly worse in right lower frequencies since last visit. Type C tymp right Type B left - Continue to work with hearing folks to adjust her aids - Audiology referral [facility] - in 1 year for rechecking hearing and discuss Tympanoplasty with Dr. Lex guardado Not available 05/25/2025 11:17:46 Plan of Treatment Reminders Order Date Submit Date Provider Last Modified By Organization Details Last Modified Time Details Appointments Hearing Test First 2025 10:30A M Hearing Test Not available Not available Not available Establish ed 15 2025 10:45A M Favian Martinez, DO Not available Not available Not available Lab fungus, culture, unspecifi ed specimen 2024 025 LOAN [facility] (Centralized Electronic Ordering - All Locations), Patient Can Go To The Location Of Their Choice, [id number] 01/04/2025 12:30:24 culture, bacterial 2024 025 LOAN [facility] (Centralized Electronic Ordering - All Locations), Patient Can Go To The Location Of Their Choice, [id number] 12/13/2024 11:38:[address] referral 2024 025 [email or web address] [facility] Audiology Scheduling Dept, [address], [place], [address], 05/28/2025 15:17:41 Procedures None recorded. Surgeries None recorded. Imaging None recorded. Medication Orders ofloxacin 0.3 % ear drops 2024 025 [email or web address] [facility], [address] [place], [address], 03/07/2025 11:05:45 Patient TargetsNo targets recorded. Patient InstructionsNo instructions recorded. 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 Register In Chancery Referral for Mar ginal perforation of tympanic membrane Referring Physician: Favian Martinez, Otolaryngology, Encounter Date: 05/25/2025 Results Created Date Observation Date Name Description Value Unit Range Abnormal Flag Note LastModifiedBy Organization Detail LastModifiedTime 12/07/1912/10/2024 ANAER OBIC AND AEROB IC CULTU RE anaerobic culture Final report Not Available [facility] ([facility]) [address] [place], [address], 01/04/2025 12:30:23 12/07/19 25 12/10/2024 ANAER OBIC AND AEROB IC CULTU RE result 1 COMMEN T No anaer obic growt h in 72 hours . Not Available [facility] ([facility]) [address] [place], [address], 01/04/2025 12:30:23 12/07/19 25 12/10/2024 ANAER OBIC AND AEROB IC CULTU RE aerobic culture Final report abnormal Not Available [facility] ([facility]) [address] [place], [address], 01/04/2025 12:30:23 12/07/19 25 12/10/2024 ANAER OBIC [...] e Heavy growt h Not Available [facility] ([facility]) [address] [place], [address], 01/04/2025 12:30:23 12/07/19 25 12/10/2024 ANAER OBIC AND AEROB IC CULTU RE result 2 Klebsi joyce aeroge mkaenzie abnormal Some Enter obact erale s may devel op resis tance durin g thera py with third -gene ratio n cepha lospo rins. This resis tance is most commo nly seen with Citro bacte r freun dii compl ex, Enter obact er cloac ae compl ex, and Klebs iella aerog gris. [place] ольга that initi ally test susce ptibl e may becom e resis tant withi n a few days after initi ation of thera py. Testi ng subse quent isola ольга may be warra nted if clini felice indic ated. (CLSI M100- Ed33) Multi -Drug Resis tant Organ ism Heavy growt h Not Available [facility] ([facility]) [address] [facility], [place], [address], 01/04/2025 12:30:23 12/07/19 25 12/10/2024 ANAER OBIC [...] compl ex, and Klebs iella aerog gris. [place] о[place] that initi ally test susce ptibl e may becom e resis tant withi n a few days after initi ation of thera py. Testi ng subse quent isola ольга may be warra nted if clini felice indic ated. (CLSI M100- Ed33) Heavy growt h Not Available [facility] ([facility]) [address] [facility], [place], [address], 01/04/2025 12:30:23 12/07/19 25 12/10/2024 ANAER OBIC [...] R Vanco mycin S Not Available [facility] ([facility]) [address] [facility], [place], [address], 01/04/2025 12:30:23 12/07/19 25 12/07/2024 FUNGU S CULTU RE WITH STAIN fungus stain Final report Not Available [facility] ([facility]) [address] [facility], [place], [address], 01/04/2025 12:30:24 12/07/19 25 12/07/2024 FUNGU S CULTU RE WITH STAIN result 1 COMMEN T LULY/C alcof luor prepa ratio n: no fungu s obser naa. Not Available [facility] ([facility]) [address] [facility], [place], [address], 01/04/2025 12:30:24 12/07/19 25 01/04/2025 FUNGU S CULTU RE WITH STAIN fungus (mycology) culture Final report Not Available [facility] ([facility]) [address] [facility], [place], [address], 01/04/2025 12:30:24 12/07/19 25 01/04/2025 FUNGU S CULTU RE WITH STAIN result 1 COMMEN T No yeast or mold isola rajendra after 4 weeks . Not Available [facility] ([facility]) [address], [place], [address], 01/04/2025 12:30:24 12/07/19 25 01/24/2024 audio gram No observ ation record ed. [email or web address] Not Available 11/21 14:06:49 12/08/19 25 audio gram No observ ation record ed. BARCODE Not Available 2024 09:29:54 05/25/20 audio gram No observ ation record ed. BARCODE Not Available 2024 11:32:16 Result Notes None recorded. Problems Name Problem SNOMED Code Status Onset Date Resolution Date Notes Provider Name and Address Organization Details Recorded Time Mixed conductive and sensorineur al hearing loss, bilateral 033598432 Active 2024 JP CELESTE , AUD [address] [address], [place], [address], [facility] - [facility] 13:25:44 Otorrhea of left ear 1533031532090 108 Active 2024 Jacque ulloa [place] - [facility] 13:57:34 Marginal perforation of tympanic membrane 91824953 Active 2024 Favian Martinez, DO [address] [address], [place], [address], [facility] - [facility] 11:15:55 Otorrhea 52051225 Active 2024 Jacque ulloa [place] - [facility] 14:15:14 Mixed conductive and sensorineur al hearing loss, bilateral 545569038 Active 2024 TIGRE MCCAIN PA-C [address] [facility], [place], [address], [facility] 5 11:34:00 Mixed conductive AND sensorineur al hearing loss 07400518 Active 2024 TIGRE MCCAIN PA-C [address] [facility], [address], [place], [address], [facility] 11:34:14 Problem Notes None recorded. Procedures Surgical History Date Name Laterality Status Provider Name and Address Organization Details Recorded Time 05/25/2025 Comp Audio with Tymps - 33894 & 01205 completed ELLA TOMAS, [facility] 100 [facility],[address], [address], [facility] 05/25/2025 10:50:18 12/06/2024 Comp Audio with Tymps - 75585 & 31583 completed JP CELESTE, [facility] 100 [facility],[address] [address], [place], [address], [facility] 12/06/2024 13:25:33 Imaging Results None recorded. [...] THAN 12 HOURS, AND LEAVE OFF FOR 12 03/07 completed Not Available Not Available Not [...] Not Available Not Available Not Available omeprazole 20 mg capsule,del ayed release TAKE ONE CAPSULE [...] Updated DateTime 12/06/2024 154.94 cm 25.5 kg/m2 64102.97 g Reina Laird [place] [facility] 12/06/2024 13:41:46 Date Recorded Body height Body mass index (BMI) Body weight Provider Name and Address Organization Details Last Updated DateTime 01/01/2025 154.94 cm 25.5 kg/m2 00342.97 g Marianna Arguello [place] [facility] 01/01/2025 10:22:48 Date Recorded Body height Body mass index (BMI) Body weight Provider Name and Address Organization Details Last Updated DateTime 03/07/2025 154.94 cm 24.2 kg/m2 43541.82 g Madonna Rivera [place] [facility] 03/07/2025 11:05:24 Social History None recorded. Functional Status None recorded. Mental Status None recorded. Family History Nothing Reported. Medical History Condition Response Allergies/Hayfever N Heart Problems N Anxiety Y Tonsil Infections N Emphysema N Migraines N Thyroid Problems N Developmental Delay N COPD N Depression N Glaucoma N Nasal or Sinus Problems N Anemia N Immune System Disorder N Anesthesia Complications N Heart Attack (ME) N Other Skin Condition N Diabetes N Rhinitis N Bleeding Disorder N Food Allergy N Arthritis N Hearing Loss N Hyperlipidemia N Cancer N Stroke N Dementia N Nasal polyps N Asthma N Sleep Disorder N GERD/Reflux N High Cholesterol N Liver Disease N Headaches N Fibromyalgia N Hypertension N Speech Delay N Kidney Disease N Gynecological HistoryNo gynecological history recorded. Obstetrics History GPAL:G 0 P 0 0 0 0 Past Encounters Encounter ID Performer Location Encounter Start Date Encounter Closed Date Diagnosis/Indication Diagnosis SNOMED-CT Code Diagnosis ICD10 Code Diagnosis IMO Codes Diagnosis Note [id number] JACQUE COOL PA-C [facility] [address] [address] 12/06/2024 12:17:20 12/06/2024 14:04:48 Mixed conductive and sensorineural hearing loss, bilateral 755736143 H90.6 Audiologic al evaluation results: Right ear: Moderately -severe sloping to profound mixed hearing loss with excellent word recognitio n. Left ear: Severe sloping to profound mixed hearing loss with good word recognitio n. Tympanomet ry: Right Ear:Type Ad Left Ear:Type B with large volume Otorrhea of left ear 929 3710922 074667 H92.12 Marginal p erforation of tympanic membrane 62486096 H72.2X9 Otorrhea 38569254 H92.12 [id number] JACQUE COOL PA-C [facility] on [address] [place] [address] 01/01/2025 10:19:06 01/01/2025 10:37:59 Otorrhea of left ear 6559037537 554215 H92.12 Marginal p erforation of tympanic membrane 89720692 H72.2X9 Mixed cond uctive and sensorineural hearing loss, bilateral 212886251 H90.6 Audiologic al evaluation results: Right ear: Moderately -severe sloping to profound mixed hearing loss with excellent word recognitio n. Left ear: Severe sloping to profound mixed hearing loss with good word recognitio n. Tympanomet ry: Right Ear:Type Ad Left Ear:Type B with large volume [id number] TIGRE MCCAIN PA-C [facility] [address] [address] 03/07/2025 11:01:01 03/07/2025 11:25:39 Marginal perforation of tympanic membrane 46126358 H72.2X9 Mixed cond uctive AND sensorineural hearing loss 07087144 H90.A32 [id number] Favian Martinez DO [facility] [address] [address] 05/25/2025 10:01:58 05/25/2025 11:21:04 Marginal perforation of tympanic membrane 57699395 H72.2X9 left 20% central perf Mixed cond uctive AND sensorineural hearing loss 51206010 H90.A32 [id number] Audiologic al evaluation results:Ri ght ear:Modera tely-sever e sloping to profound mixed hearing loss with good word recognitio n.Left ear:Modera tely-sever e sloping to profound mixed hearing loss with fair word recognitio n. Tympanomet ry:Right Ear:Type AdLeft Ear:Type B with large volume Health Concerns Section Related Observation LastModified by Organization Detai ls LastModified Time None Recorded Concern Status LastModified by Organization Details LastModified Time None Recorded Advance Directives Directive None Recorded Payers Insurance Date Sequence Insurance Name Policy Number Policy Barnes Covered Member ID Barnes Member ID Guarantor Name 05/31/2025 1 [facility] PLAN (MEDICAID HMO) [place] Snow [id number] Katia Snow Notes Date Note Type Note Provider Name and Address Organization Details Recorded Time 12/06/2024 text/html ROS as noted in the HPI 59 year old female presents to the office accompanied by her mother. She reports left ear drainage off and on since last January when she was fitted for new hearing aids at [facility]. She has used hearing aids for the past 30 years. She reports that six weeks ago she was sick with upper respiratory infection and was told that she had fluid in the left ear. It has been draining for the past six weeks. She has not been on any otic drops. She has continued to use both hearing aids. FAVIAN CARMONA MD 100 [facility], [address], [facility] 12/06/2024 17:12:54 01/01/2025 text/html ROS as noted in the HPI 59 year old female presents for follow up of her left otorrhea. She used Ofloxacin drops and has had no further drainage. She reports some right ear itching. TAO GAMBINO MD 100 [facility] [place],[address] [address], [place], [address], [facility] 01/01/2025 12:55:15 03/07/2025 text/html ROS as noted in the HPI 59yo female with longstanding SNHL presents for reevaluation of left-sided tympanic membrane perforation. This was noticed on exam after acute ear infection 3 months ago. Patient reports hearing is stable. She wears bilateral amplification dispensed by an hoop flaring machine operator helper at the [facility]. She transferred audiology care to [facility], and hearing aids were recently adjusted. She has been using hearing aids for the past 30 years. FAVIAN CARMONA MD 100 [facility],[address], [address], [facility] 03/07/2025 17:38:27 05/25/2025 text/html ROS as noted in the [facility] Interval history: Here today for discussion of changes with her hearing as well as hearing aid adjustment with her audiology team.Worse change in hearing. Prior left TM perforation. Previously 59yo female with longstanding SNHL presents for reevaluation of left-sided tympanic membrane perforation. This was noticed on exam after acute ear infection 3 months ago. Patient reports hearing is stable. She wears bilateral amplification dispensed by an hoop flaring machine operator helper at the [facility]. She transferred audiology care to [facility], and hearing aids were recently adjusted. She has been using hearing aids for the past 30 years. Favian Martinez, DO 100 [facility],[address] [address], [place], [address], [facility] - [facility] 05/25/2025 11:17:56 OBGyn Episode No OBEpisode recorded.
== END 2025-06-13 15:38 | disposition home or self-care (01) ==
LOC: HO.HAP 15:37
PROVIDERS: Visit Provider Internal Medicine
DX: Z46.1 Encounter for fitting and adjustment of hearing aid (principal); H90.6 Mixed conductive and sensorineural hearing loss, bilateral
CPT/HCPCS: 92593

== ENCOUNTER 2025-07-26 14:28 | Outpatient (REF) | payer OTHER, SELFPAY ==
[2025-07-26 17:01] LABS: Resp Syncy Virus RNA Qual PCR NEGATIVE (Negative); SARS COV2 PCR INHOUSE NEGATIVE (Negative)
--- OUTSIDE RECORDS SUMMARY | 2025-07-26 21:19 | XMS_ITS | Continuity of Care Document ---
Author Organization [place] - [facility], [facility] Address [address] [place] [address] Care Team Providers Care Computer Applications Developer Name Role Phone JEFFERY PENN Referring Provider [phone] JUAN CARSON Primary Care Provider Assessment Encounter [...] to adjust her aids - Audiology referral [facility] - in 1 year for rechecking hearing [...] Referral audiologi st referral 2024 025 [email or web address] [facility] Audiology Scheduling Dept, [address], [place], [address], 05/28/2025 15:17:41 Procedures None recorded. Surgeries None recorded. Imaging None recorded. Medication Orders None recorded. Patient TargetsNo targets recorded. Patient InstructionsNo instructions recorded. 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 Brush Holder Inspector Referral for Mar ginal perforation of tympanic [...] conductive and sensorineur al hearing loss, bilateral 649173062 Active 2024 JP CELESTE , [facility] 100 [facility],[address] [address], [place], [address], [facility] - [facility] 5 13:25:44 Otorrhea of left ear 3890939156875 108 Active 2024 Jacque ulloa [place] - [facility] [place] 13:57:34 Marginal perforation of tympanic membrane 76278357 Active 2024 Favian Martinez, 100 [facility], E [facility], [place], [address], [facility] - [facility] 5 11:15:55 Otorrhea 13088313 Active 2024 Jacque ulloa [place] - [facility] [place] 14:15:14 Mixed conductive and sensorineur al hearing loss, bilateral 938512809 Active 2024 TIGRE MCCAIN PA-C 100 [facility], [address], [place], [address], [facility] - [facility] 5 11:34:00 Mixed conductive AND sensorineur al hearing loss 07832499 Active 2024 TIGRE MCCAIN PA-C 100 [facility],[address], [place], [address], [facility] 11:34:14 Problem Notes None recorded. Procedures Surgical History Date Name Laterality Status Provider Name and Address Organization Details Recorded Time 05/25/2025 Comp Audio with Tymps - 33935 & 75929 completed ELLA TOMAS, AuD 100 [facility],[address] [address], [place], [address], [facility] 05/25/2025 10:50:18 12/06/2024 Comp Audio with Tymps - 07684 & 05718 completed JP CELESTE, [facility] [address] [facility],[address] [address], [place], [address], [facility] 12/06/2024 13:25:33 Imaging Results None recorded. [...] ICD10 Code Diagnosis IMO Codes Diagnosis Note [id number] Favian Martinez DO [facility] of [address] [address] 05/25/2025 10:01:58 05/25/2025 11:21:04 Marginal perforation of tympanic membrane 78417860 H72.2X9 left 20% central perf Mixed cond uctive AND sensorineural hearing loss 01748178 H90.A32 [id number] Audiologic al evaluation results:Ri ght ear:Modera tely-sever [...] Barnes Member ID Guarantor Name 05/25/2025 1 [facility] - HEALTH NET PLAN (MEDICAID HMO) [place] Snow [id number] Katia Snow Notes Date Note Type Note [...] She wears bilateral amplification dispensed by an director software development at the [facility]. She transferred audiology care to [facility], and hearing aids were recently adjusted. She has been using hearing aids for the past 30 years. Favian Martinez, DO 100 [facility],[address] [address], [place], [address], [facility] - [facility] 05/25/2025 11:17:56 OBGyn Episode No OBEpisode recorded.
--- OUTSIDE RECORDS SUMMARY | 2025-07-26 21:19 | XMS_ITS | Data Portability ---
Author Organization [place] - [facility], Allergy Address [address] [address] Care Team Providers Care School Aide Name Role Phone JEFFERY PENN Referring Provider JUAN CARSON Primary Care Provider [phone] Assessment Encounter Date Assessment Date Assessment LastModified [...] at this time. She will return to [facility] audiology as needed for hearing [...] Go To The Location Of Their Choice, [id number] 01/04/2025 12:30:24 culture, bacterial 2024 025 LOAN [facility] (Centralized Electronic Ordering - All Locations), Patient Can Go To The Location Of Their Choice, [address] 12/13/2024 11:38:[address] referral 2024 025 [email or web address] [facility] Audiology Scheduling Dept, [address], [place], [address], 05/28/2025 15:17:41 Procedures None recorded. Surgeries None recorded. Imaging None recorded. Medication Orders ofloxacin 0.3 % ear drops 2024 025 [email or web address] [id number], [address] [facility], [place], [address], 03/07/2025 11:05:45 Patient TargetsNo targets recorded. Patient InstructionsNo instructions recorded. 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 Not Available [facility] ([facility]) [address] [facility], [place], [address], 01/04/2025 12:30:23 12/07/19 25 12/10/2024 ANAER OBIC AND AEROB IC CULTU RE aerobic culture Final report abnormal Not Available [facility] ([facility]) [address] [place], [address], 01/04/2025 12:30:23 12/07/19 25 12/10/2024 ANAER OBIC [...] e Heavy growt h Not Available [facility] ([facility]) [address] [place], [address], 01/04/2025 12:30:23 12/07/19 25 12/10/2024 ANAER OBIC [...] compl ex, and Klebs iella aerog gris. Lawrence ольга that initi ally test susce ptibl e may becom e resis tant withi n a few days after initi ation of thera py. Testi ng subse quent isola ольга may be warra nted if clini felice indic ated. (CLSI M100- Ed33) Multi -Drug Resis tant Organ ism Heavy growt h Not Available [facility] ([facility]) [address] [facility], [place], [address], 01/04/2025 12:30:23 12/07/19 25 12/10/2024 ANAER OBIC [...] compl ex, and Klebs iella aerog gris. Lawrence ольга that initi ally test susce ptibl e may becom e resis tant withi n a few days after initi ation of thera py. Testi ng subse quent isola ольга may be warra nted if clini felice indic ated. (CLSI M100- Ed33) Heavy growt h Not Available [facility] ([facility]) [address] [facility], [place], [address], 01/04/2025 12:30:23 12/07/19 25 12/10/2024 ANAER OBIC [...] R Vanco mycin S Not Available [facility] ([facility]) [address] [facility], [place], [address], 01/04/2025 12:30:23 12/07/19 25 12/07/2024 FUNGU S CULTU RE WITH STAIN fungus stain Final report Not Available [facility] ([facility]) [address] [facility], [place], [address], 01/04/2025 12:30:24 12/07/19 25 12/07/2024 FUNGU S CULTU RE WITH STAIN result 1 COMMEN T LULY/C alcof luor prepa ratio n: no fungu s obser naa. Not Available [facility] ([facility]) [address] [facility], [place], [address], 01/04/2025 12:30:24 12/07/19 25 01/04/2025 FUNGU S CULTU RE WITH STAIN fungus (mycology) culture Final report Not Available [facility] ([facility]) [address] [facility], [place], [address], 01/04/2025 12:30:24 12/07/19 25 01/04/2025 FUNGU S CULTU RE WITH STAIN result 1 COMMEN T No yeast or mold isola rajendra after 4 weeks . Not Available [facility] ([facility]) [address] [facility], [place], [address], 01/04/2025 12:30:24 12/07/19 25 01/24/2024 audio gram [...] conductive and sensorineur al hearing loss, bilateral 309238108 Active 2024 JP CELESTE , AUD [address] [address], [place], [address], [facility] - [facility] 13:25:44 Otorrhea of left ear 1706795334487 108 Active 2024 Jacque ulloa [place] - [facility] [place] 13:57:34 Marginal perforation of tympanic membrane 41984819 Active 2024 Favian Martinez, DO [address] [address], [place], [address], [facility] - [facility] 11:15:55 Otorrhea 46866207 Active 2024 Jacque ulloa [place] - [facility] 14:15:14 Mixed conductive and sensorineur al hearing loss, bilateral 970947379 Active 2024 TIGRE MCCAIN PA-C [address] [facility], [place], [address], [facility] 5 11:34:00 Mixed conductive AND sensorineur al hearing loss 70135408 Active 2024 TIGRE MCCAIN PA-C [address] [facility], [place], [address], [facility] 5 11:34:14 Problem Notes None recorded. Procedures Surgical History Date Name Laterality Status Provider Name and Address Organization Details Recorded Time 05/25/2025 Comp Audio with Tymps - 65323 & 63377 completed ELLA TOMAS, [facility] [address] [facility],[address], [address], [facility] 05/25/2025 10:50:18 12/06/2024 Comp Audio with Tymps - 11546 & 03008 completed JP CELESTE, [facility] [address] [facility],[address] [address], [place], [address], [facility] 12/06/2024 13:25:33 Imaging Results None recorded. Procedure [...] Updated DateTime 12/06/2024 154.94 cm 25.5 kg/m2 23998.97 g Reina Laird [place] - [facility] 12/06/2024 13:41:46 Date Recorded Body height Body mass index (BMI) Body weight Provider Name and Address Organization Details Last Updated DateTime 01/01/2025 154.94 cm 25.5 kg/m2 51004.97 g Marianna Arguello [place] - [facility] 01/01/2025 10:22:48 Date Recorded Body height Body mass index (BMI) Body weight Provider Name and Address Organization Details Last Updated DateTime 03/07/2025 154.94 cm 24.2 kg/m2 03605.82 g Madonna Rivera [place] - [facility] 03/07/2025 11:05:24 Social History None recorded. Functional [...] Disorder N Anesthesia Complications N Heart Attack ([place]) N Other Skin Condition N Diabetes N [...] ICD10 Code Diagnosis IMO Codes Diagnosis Note [id number] JACQUE COOL PA-C [facility] [address] [address] 12/06/2024 12:17:20 12/06/2024 14:04:48 Mixed conductive and sensorineural hearing loss, bilateral 578408914 H90.6 Audiologic al evaluation results: Right ear: Moderately -severe sloping to profound mixed hearing loss with excellent word recognitio n. Left ear: Severe sloping to profound mixed hearing loss with good word recognitio n. Tympanomet ry: Right Ear:Type Ad Left Ear:Type B with large volume Otorrhea of left ear 730 3367005 374676 H92.12 Marginal p erforation of tympanic membrane 56061940 H72.2X9 Otorrhea 16363484 H92.12 [id number] JACQUE COOL PA-C [facility] on [address] [place] [address] 01/01/2025 10:19:06 01/01/2025 10:37:59 Otorrhea of left ear 7622165720 666287 H92.12 Marginal p erforation of tympanic membrane 83539482 H72.2X9 Mixed cond uctive and sensorineural hearing loss, bilateral 266680949 H90.6 Audiologic al evaluation results: Right ear: Moderately -severe sloping to profound mixed hearing loss with excellent word recognitio n. Left ear: Severe sloping to profound mixed hearing loss with good word recognitio n. Tympanomet ry: Right Ear:Type Ad Left Ear:Type B with large volume [id number] TIGRE MCCAIN PA-C [facility] [address] [address] 03/07/2025 11:01:01 03/07/2025 11:25:39 Marginal perforation of tympanic membrane 08643931 H72.2X9 Mixed cond uctive AND sensorineural hearing loss 75058142 H90.A32 08302610 [id number] Favian Martinez DO [facility] [address] [address] 05/25/2025 10:01:58 05/25/2025 11:21:04 Marginal perforation of tympanic membrane 57115516 H72.2X9 left 20% central perf Mixed cond uctive AND sensorineural hearing loss 50245147 H90.A32 [id number] Audiologic al evaluation results:Ri ght ear:Modera tely-sever [...] Barnes Member ID Guarantor Name 05/31/2025 1 [facility] - HEALTH NET PLAN (MEDICAID HMO) [place] Snow [id number] Katia Snow Notes Date Note Type Note Provider Name and Address Organization Details Recorded Time 12/06/2024 text/html ROS as noted in the HPI 59 year old female presents to the office accompanied by her mother. She reports left ear drainage off and on since last January when she was fitted for new hearing aids at [facility]. She has used hearing aids for the past 30 years. She reports that six weeks ago she was sick with upper respiratory infection and was told that she had fluid in the left ear. It has been draining for the past six weeks. She has not been on any otic drops. She has continued to use both hearing aids. FAVIAN CARMONA MD [address] [facility],[address], [address], [facility] 12/06/2024 17:12:54 01/01/2025 text/html ROS as noted in the HPI 59 year old female presents for follow up of her left otorrhea. She used Ofloxacin drops and has had no further drainage. She reports some right ear itching. TAO GAMBINO MD [address] [facility] [address], [place], [address], [facility] 01/01/2025 12:55:15 03/07/2025 text/html ROS as noted in the HPI 59yo female with longstanding SNHL presents for reevaluation of left-sided tympanic membrane perforation. This was noticed on exam after acute ear infection 3 months ago. Patient reports hearing is stable. She wears bilateral amplification dispensed by an nursing director at the [facility]. She transferred audiology care to [facility], and hearing aids were recently adjusted. She has been using hearing aids for the past 30 years. FAVIAN CARMONA MD [address] [facility],[address], [address], [facility] 03/07/2025 17:38:27 05/25/2025 text/html ROS as noted [...] She wears bilateral amplification dispensed by an nursing director at the [facility]. She transferred audiology care to [facility], and hearing aids were recently adjusted. She has been using hearing aids for the past 30 years. Favian Martinez, [address] [facility],[address] [address], [place], [address], [facility] - [facility] 05/25/2025 11:17:56 OBGyn Episode No OBEpisode recorded.
== END 2025-07-26 14:29 | disposition home or self-care (01) ==
LOC: HO.LAB 14:28
PROVIDERS: Visit Provider Nurse Practitioner Family
DX: R42 Dizziness and giddiness (principal); R09.89 Other specified symptoms and signs involving the circulatory and respiratory systems
CPT/HCPCS: 87637; 99212

== ENCOUNTER 2025-07-26 14:28 | Outpatient (AMB) | payer OTHER, SELFPAY ==
[2025-07-26 14:35] VITALS: BP 110/78; PULSE 98; TEMP 36.7; O2SAT 98; BMI 23.4
--- NOTE | 2025-07-26 14:35 | AM.OFFWIN_ITS ---
Intake Vital Signs 07/26/25 14:35 Height 5 ft 1 in Weight 124 lb BMI 23.4 BP 110/78 Blood Pressure Location Rt brachial Position Sitting Pulse 98 Pulse Source Pulse Oximeter Temp 98.1 F Temp Source Oral Pulse Oximetry (%) 98 Oxygen Delivery Method Room Air Intake Visit Reasons: EP lightheadness since wednesday Intake Note: Patient presents c/o lightheadedness, sinus pressure x4 days. Patient Tobacco Use Status: Never used Tobacco Allergies chocolate Allergy (Verified 07/26/25 14:39) Unknown lactase (From Dairy Aid) Allergy (Verified 07/26/25 14:39) Stomach Upset codeine Adverse Reaction (Intermediate, Verified 07/26/25 14:39) Nausea/Vomiting prednisone Adverse Reaction (Intermediate, Verified 07/26/25 14:39) diarrhea, ROTH bisquit Allergy (Unknown, Uncoded 07/26/25 14:39) sneeze mold Allergy (Unknown, Uncoded 07/26/25 14:39) unknown yeast Allergy (Unknown, Uncoded 07/26/25 14:39) unknown HPI HPI Comments History of Present Illness Details 59-year-old female presents to the walk- in clinic with c/o lightheadedness and sinus pressure x4 days. Symptoms began on Wednesday when she be nt down to tie her shoes and experienced an episode of lightheadedness; similar intermittent episodes since. Denies room-spinning dizziness, syncope, chest pain, palpitations, SOB, weakness, numbness, or vision changes. Reports known bilateral TM ruptures and is currently awaiting ENT surgery. Denies ear drainage or worsening ear pain. Denies recent falls, head trauma, fever, chills, nausea, vomiting. No recent URI symptoms aside from sinus pressure. No new medications. [facility] Medical History (Updated 07/26/25 @ 14:54 by Cristina Currie NP) Intermittent lightheadedness Well woman exam Indigestion Diarrhea Cough Exudative otitis media of left ear Acute respiratory disease Encounter for general adult medical examination with abnormal findings Hospital discharge follow-up Atypical chest pain Tremor Strain of chest wall Foot pain, bilateral Encounter for screening laboratory testing for COVID-19 virus Encounter for routine gynecological examination Colon cancer screening Nausea & vomiting Stomach upset Otitis media of right ear Blurring of vision Upper respiratory tract infection Upper respiratory tract infection Chapped lips Hearing impaired Hypoglycemia Stress Heart palpitations Premature ventricular complex Stress at work Allergies Sensorineural hearing loss Surgical History No pertinent past surgical history Family History Father No problems noted. Mother No problems noted. Social History Housing: Apartment Alcohol intake: never Patient Tobacco Use Status: Never used Tobacco e-Cigarette/Vaping Use: Never Used Second Hand Smoke Exposure: No service: No Current occupational status: employed Cognitive needs: No Hearing needs: Yes Vision needs: Yes Review of Systems Const All systems reviewed & are unremarkable except as noted in HPI and below Physical Exam Vital Signs: Last Vital Signs Temp 98.1 F 07/26/25 14:35 Pulse 98 07/26/25 14:35 BP 110/78 07/26/25 14:35 Pulse Ox 98 07/26/25 14:35 Oxygen Delivery Method Room Air 07/26/25 14:35 BMI result Body Mass Index 23.4 Const General: no acute distress Nutritional Appearance: well nourished Orientation/consciousness: patient oriented x3 HEENT Head: Yes normocephalic Ears: external ears normal and TM abnormal perforated without discharge bilateral and retracted bilateral General nose exam: Normal external nose present Face and sinus: Yes sinuses nontender Mouth: moist mucous membranes Throat: Yes uvula midline Resp Effort & Inspection: normal respiratory effort Auscultation: clear to auscultation bilaterally Cardio Heart sounds: S1 normal heart sound present and S2 normal heart sound present Neuro General: patient oriented x3 Assessment & Plan Assessment & Plan (1) Intermittent lightheadedness: Code(s): R42 - Dizziness and giddiness Plan: Bilateral tympanic membrane rupture (chronic) ? stable; awaiting ENT surgical management. Ordered SARs Encourage hydration; advise slow positional changes. Trial OTC management for sinus pressure: saline nasal spray, fluticasone nasal spray daily, warm compresses. Avoid aggressive nose blowing or Valsalva due to chronic TM rupture. If dizziness worsens, becomes spinning/vertiginous, occurs at rest, or is associated with neuro deficit ? return immediately or go to ED. Orders: Orders SARS-CoV2/FLU/RSV Today R09.89 - Other specified symptoms and signs involving the circulatory and respiratory systems Coding Level of Care Code Est Pt Level 4 (59643) Diagnoses Intermittent lightheadedness R42 Time Spent (min) 20
--- OUTSIDE RECORDS SUMMARY | 2025-07-26 20:10 | XMS_ITS | Clinical Summary ---
Author Organization [facility] Address [address] [place] [address] Care Team Providers Care Water Operator Name Role Phone Joey Miller MD Primary Care Provider [phone] Surgical History Surgery Date Site/Laterality Comments OTHER [...] Depression Screening 08/23/2024 COVID-19 Vaccine (1 - 2024-2 6 season) 2025 Influenza Vaccine (#1) 2025 RSV [...] age to complete this topic Care Teams Water Operator Relationship Specialty Start Date End Date Joey Miller MD [address] [place] [address] PCP - General Internal Medicine 01/13/21
--- OUTSIDE RECORDS SUMMARY | 2025-07-26 20:10 | XMS_ITS | Data Portability ---
Author Organization [place] - [facility], Allergy Address [address] [address] Care Team Providers Care Numerical Control Drill Press Operator Name Role Phone JEFFERY PENN Referring Provider JUAN CARSON Primary Care Provider [phone] Assessment Encounter Date Assessment Date Assessment LastModified [...] at this time. She will return to [facility] audiology as needed for hearing aid [...] to adjust her aids - Audiology referral [facility] - in 1 year for rechecking hearing and discuss Tympanoplasty with Dr. Lex guardado Not available 05/25/2025 11:17:46 Plan of Treatment Reminders Order Date Submit Date Provider Last Modified By Organization Details Last Modified Time Details Appointments Hearing Test Same Day (First) 2025 10:30A M Hearing Test Not available Not available Not available Establish ed 15 2025 10:45A M Favian Martinez, DO Not available Not available Not available Lab fungus, culture, unspecifi ed specimen 2024 025 LOAN [facility] (Centralized Electronic Ordering - All Locations), Patient Can Go To The Location Of Their Choice, [address] 01/04/2025 12:30:24 culture, bacterial 2024 025 LOAN [facility] (Centralized Electronic Ordering - All Locations), Patient Can Go To The Location Of Their Choice, [address] 12/13/2024 11:38:[address] referral 2024 025 [email or web address] [facility] Audiology Scheduling Dept, [address], [place], [address], 05/28/2025 15:17:41 Procedures None recorded. Surgeries None recorded. Imaging None recorded. Medication Orders ofloxacin 0.3 % ear drops 2024 025 [email or web address] [id number], [address] [facility], [place], [address], 03/07/2025 11:05:45 Patient TargetsNo targets recorded. Patient InstructionsNo instructions recorded. 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 Md Urologist Referral for Mar ginal perforation of tympanic membrane Referring Physician: Favian Martinez, Otolaryngology, Encounter Date: 05/25/2025 Results Created Date Observation Date Name Description Value Unit Range Abnormal Flag Note LastModifiedBy Organization Detail LastModifiedTime 12/07/1912/10/2024 ANAER OBIC AND AEROB IC CULTU RE anaerobic culture Final report Not Available [facility] ([facility]) [address] [place], [address], 01/04/2025 12:30:23 12/07/19 25 12/10/2024 ANAER OBIC AND AEROB IC CULTU RE result 1 COMMEN T No anaer obic growt h in 72 hours . Not Available [facility] ([facility]) [address] [facility], [place], [address], 01/04/2025 12:30:23 12/07/19 25 12/10/2024 ANAER OBIC AND AEROB IC CULTU RE aerobic culture Final report abnormal Not Available [facility] ([facility]) [address] [place], [address], 01/04/2025 12:30:23 12/07/19 25 12/10/2024 ANAER OBIC [...] e Heavy growt h Not Available [facility] ([facility]) [address] [place], [address], 01/04/2025 12:30:23 12/07/19 25 12/10/2024 ANAER OBIC [...] compl ex, and Klebs iella aerog gris. [place] that initi ally test susce ptibl e may becom e resis tant withi n a few days after initi ation of thera py. Testi ng subse quent isola ольга may be warra nted if clini felice indic ated. (CLSI M100- Ed33) Multi -Drug Resis tant Organ ism Heavy growt h Not Available [facility] ([facility]) [address] [facility], [place], [address], 01/04/2025 12:30:23 12/07/19 25 12/10/2024 ANAER OBIC [...] compl ex, and Klebs iella aerog gris. [place] that initi ally test susce ptibl e may becom e resis tant withi n a few days after initi ation of thera py. Testi ng subse quent isola ольга may be warra nted if clini felice indic ated. (CLSI M100- Ed33) Heavy growt h Not Available [facility] ([facility]) [address] [facility], [place], [address], 01/04/2025 12:30:23 12/07/19 25 12/10/2024 ANAER OBIC [...] R Vanco mycin S Not Available [facility] ([facility]) [address] [facility], [place], [address], 01/04/2025 12:30:23 12/07/19 25 12/07/2024 FUNGU S CULTU RE WITH STAIN fungus stain Final report Not Available [facility] ([facility]) [address] [facility], [place], [address], 01/04/2025 12:30:24 12/07/19 25 12/07/2024 FUNGU S CULTU RE WITH STAIN result 1 COMMEN T LULY/C alcof luor prepa ratio n: no fungu s obser naa. Not Available [facility] ([facility]) [address] [facility], [place], [address], 01/04/2025 12:30:24 12/07/19 25 01/04/2025 FUNGU S CULTU RE WITH STAIN fungus (mycology) culture Final report Not Available [facility] ([facility]) [address] [facility], [place], [address], 01/04/2025 12:30:24 12/07/19 25 01/04/2025 FUNGU S CULTU RE WITH STAIN result 1 COMMEN T No yeast or mold isola rajendra after 4 weeks . Not Available [facility] ([facility]) [address] [facility], [place], [address], 01/04/2025 12:30:24 12/07/19 25 01/24/2024 audio gram [...] conductive and sensorineur al hearing loss, bilateral 857466126 Active 2024 JP CELESTE , AUD [address] [address], [place], [address], [facility] - [facility] 13:25:44 Otorrhea of left ear 7866296311888 108 Active 2024 Jacque ulloa [place] - [facility] 13:57:34 Marginal perforation of tympanic membrane 87607391 Active 2024 Favian Martinez, DO [address] [address], [place], [address], [facility] - [facility] 11:15:55 Otorrhea 02111410 Active 2024 Jacque ulloa [place] - [facility] 14:15:14 Mixed conductive and sensorineur al hearing loss, bilateral 831380300 Active 2024 TIGRE MCCAIN PA-C [address] [facility], [address], [place], [address], [facility] 5 11:34:00 Mixed conductive AND sensorineur al hearing loss 15589019 Active 2024 TIGRE MCCAIN PA-C 100 [facility], [address], [place], [address], [facility] 5 11:34:14 Problem Notes None recorded. Procedures Surgical History Date Name Laterality Status Provider Name and Address Organization Details Recorded Time 05/25/2025 Comp Audio with Tymps - 75820 & 10135 completed ELLA TOMAS, [facility] 100 [facility],[address], [address], [facility] 05/25/2025 10:50:18 12/06/2024 Comp Audio with Tymps - 19034 & 55764 completed JP CELESTE, [facility] [address] [facility],[address] [address], [place], [address], [facility] 12/06/2024 13:25:33 Imaging Results None recorded. Procedure [...] Updated DateTime 12/06/2024 154.94 cm 25.5 kg/m2 42412.97 g Reina Laird [place] - [facility] 12/06/2024 13:41:46 Date Recorded Body height Body mass index (BMI) Body weight Provider Name and Address Organization Details Last Updated DateTime 01/01/2025 154.94 cm 25.5 kg/m2 73784.97 g Marianna Arguello [place] - [facility] 01/01/2025 10:22:48 Date Recorded Body height Body mass index (BMI) Body weight Provider Name and Address Organization Details Last Updated DateTime 03/07/2025 154.94 cm 24.2 kg/m2 62312.82 g Madonna Rivera [place] - [facility] 03/07/2025 11:05:24 Social History None recorded. Functional Status None recorded. Mental Status None recorded. Family History Nothing Reported. Medical History Condition Response Allergies/Hayfever N Heart Problems N Anxiety Y Tonsil Infections N Emphysema N Migraines N Thyroid Problems N COPD N Depression N Developmental Delay N Glaucoma N Nasal or Sinus Problems N Anemia N Immune System Disorder N Anesthesia Complications N Heart Attack ([place]) N Other Skin Condition N Diabetes N [...] ICD10 Code Diagnosis IMO Codes Diagnosis Note [id number] JACQUE COOL PA-C [facility] of [address] [address] 12/06/2024 12:17:20 12/06/2024 14:04:48 Mixed conductive and sensorineural hearing loss, bilateral 475571380 H90.6 Audiologic al evaluation results: Right ear: Moderately -severe sloping to profound mixed hearing loss with excellent word recognitio n. Left ear: Severe sloping to profound mixed hearing loss with good word recognitio n. Tympanomet ry: Right Ear:Type Ad Left Ear:Type B with large volume Otorrhea of left ear 675 0310791 237741 H92.12 Marginal p erforation of tympanic membrane 76074046 H72.2X9 Otorrhea 75725345 H92.12 [id number] JACQUE COOL PA-C [facility] of [facility] on [address] [place] [address] 01/01/2025 10:19:06 01/01/2025 10:37:59 Otorrhea of left ear 9549868269 558692 H92.12 Marginal p erforation of tympanic membrane 41125859 H72.2X9 Mixed cond uctive and sensorineural hearing loss, bilateral 352402550 H90.6 Audiologic al evaluation results: Right ear: Moderately -severe sloping to profound mixed hearing loss with excellent word recognitio n. Left ear: Severe sloping to profound mixed hearing loss with good word recognitio n. Tympanomet ry: Right Ear:Type Ad Left Ear:Type B with large volume [id number] TIGRE MCCAIN PA-C [facility] of [address] [address] 03/07/2025 11:01:01 03/07/2025 11:25:39 Marginal perforation of tympanic membrane 71286976 H72.2X9 Mixed cond uctive AND sensorineural hearing loss 48322460 H90.A32 48876744 [id number] Favian Martinez DO [facility] of [address] [address] 05/25/2025 10:01:58 05/25/2025 11:21:04 Marginal perforation of tympanic membrane 56019716 H72.2X9 left 20% central perf Mixed cond uctive AND sensorineural hearing loss 77460408 H90.A32 54112212 Audiologic al evaluation results:Ri ght ear:Modera tely-sever [...] Barnes Member ID Guarantor Name 05/31/2025 1 [facility] - HEALTH NET PLAN (MEDICAID HMO) [place] Snow [id number] Katia Snow Notes Date Note Type Note Provider Name and Address Organization Details Recorded Time 12/06/2024 text/html ROS as noted in the HPI 59 year old female presents to the office accompanied by her mother. She reports left ear drainage off and on since last January when she was fitted for new hearing aids at [facility]. She has used hearing aids for [...] both hearing aids. FAVIAN CARMONA MD 100 [facility],[address], [address], [facility] 12/06/2024 17:12:54 01/01/2025 text/html ROS as noted in the HPI 59 year old female presents for follow up of her left otorrhea. She used Ofloxacin drops and has had no further drainage. She reports some right ear itching. TAO GAMBINO MD [address] [facility],[address] [address], [place], [address], [facility] 01/01/2025 12:55:15 03/07/2025 text/html ROS as noted in the HPI 59yo female with longstanding SNHL presents for reevaluation of left-sided tympanic membrane perforation. This was noticed on exam after acute ear infection 3 months ago. Patient reports hearing is stable. She wears bilateral amplification dispensed by an business law teacher at the [facility]. She transferred audiology care to [facility], and hearing aids were recently adjusted. She has been using hearing aids for the past 30 years. FAVIAN CARMONA MD 100 [facility],[address], [address], [facility] 03/07/2025 17:38:27 05/25/2025 text/html ROS as noted in the HPI Interval history: Here today for discussion of [...] She wears bilateral amplification dispensed by an business law teacher at the [facility]. She transferred audiology care to [facility], and hearing aids were recently adjusted. She has been using hearing aids for the past 30 years. Favian Martinez, 100 [facility],[address] [address], [place], [address], [facility] - [facility] 05/25/2025 11:17:56 OBGyn Episode No OBEpisode recorded.
--- OUTSIDE RECORDS SUMMARY | 2025-07-26 20:10 | XMS_ITS | Continuity of Care Document ---
Author Organization [place] - [facility], [facility] Address [address] [place] [address] Care Team Providers Care Automotive Parts Salesperson Name Role Phone JEFFERY PENN Referring Provider JUAN CARSON Primary Care Provider Assessment Encounter Date Assessment Date Assessment LastModified by Organization Details LastModified Time 05/25/2025 05/25/2025 59yo female with longstanding SNHL [...] to adjust her aids - Audiology referral [facility] - in 1 year for rechecking [...] Not available Not available Not available Lab None recorded. Referral audiologi st referral 2024 025 [email or web address] [facility] Audiology Scheduling Dept, [address], [place], [address], 05/28/2025 15:17:41 Procedures None recorded. Surgeries None recorded. Imaging None recorded. Medication Orders None recorded. Patient TargetsNo targets recorded. Patient InstructionsNo instructions recorded. 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 Pediatric Dentist Referral for Mar ginal perforation of tympanic membrane Referring Physician: Favian Martinez, Otolaryngology, Encounter Date: 05/25/2025 Results Created Date Observation Date Name Description Value Unit Range Abnormal Flag Note LastModifiedBy Organization Detail LastModifiedTime 05/25/20 25 audio gram No observ ation record ed. BARCODE Not Available 2024 11:32:16 Result Notes None recorded. Problems Name Problem SNOMED Code Status Onset Date Resolution Date Notes Provider Name and Address Organization Details Recorded Time Mixed conductive and sensorineur al hearing loss, bilateral 816326389 Active 2024 JP CELESTE , [facility] 100 [facility],[address] [address], [place], [address], [facility] - [facility] 5 13:25:44 Otorrhea of left ear 1128362785343 108 Active 2024 Jacque ulloa [place] - [facility] [place] 13:57:34 Marginal perforation of tympanic membrane 08503059 Active 2024 Favian Martinez, 100 [facility], E [facility], [facility] [place], [address], [facility] - [facility] 5 11:15:55 Otorrhea 56383784 Active 2024 Jacque ulloa [place] - [facility] [place] 14:15:14 Mixed conductive and sensorineur al hearing loss, bilateral 736166406 Active 2024 TIGRE MCCAIN PA-C 100 [facility], [address], [place], [address], [facility] - [facility] 5 11:34:00 Mixed conductive AND sensorineur al hearing loss 94741182 Active 2024 TIGRE MCCAIN PA-C 100 [facility],[address], [place], [address], [facility] 11:34:14 Problem Notes None recorded. Procedures Surgical History Date Name Laterality Status Provider Name and Address Organization Details Recorded Time 05/25/2025 Comp Audio with Tymps - 89863 & 94647 completed ELLA TOMAS, [facility]D 100 [facility],[address] [address], [place], [address], [facility] 05/25/2025 10:50:18 12/06/2024 Comp Audio with Tymps - 35436 & 33455 completed JP CELESTE, [facility] [address] [facility],[address] [address], [place], [address], [facility] 12/06/2024 13:25:33 Imaging Results None recorded. Procedure [...] Available Not Available No t Available Vitals None Recorded Social History None recorded. Functional Status None recorded. Mental Status None recorded. Family History Nothing Reported. Medical History Condition Response Allergies/Hayfever N Heart Problems N Anxiety Y Tonsil Infections N Emphysema N Migraines N Thyroid Problems N Depression N COPD N Developmental Delay N Glaucoma N Nasal or Sinus Problems N Anemia N Immune System Disorder N Anesthesia Complications N Heart Attack ([place]) N Other Skin Condition N Diabetes N [...] ICD10 Code Diagnosis IMO Codes Diagnosis Note [id number] Favian Martinez DO [facility] of [address] [address] 05/25/2025 10:01:58 05/25/2025 11:21:04 Marginal perforation of tympanic membrane 86475010 H72.2X9 left 20% central perf Mixed cond uctive AND sensorineural hearing loss 38662592 H90.A32 [id number] Audiologic al evaluation results:Ri ght ear:Modera tely-sever [...] by Organization Details LastModified Time None Recorded Payers Encounter Date Sequence Insurance Name Policy Number Policy Barnes Covered Member ID Barnes Member ID Guarantor Name 05/25/2025 1 [facility] - HEALTH NET PLAN (MEDICAID HMO) [place] Snow [id number] Katia Snow Notes Date Note Type Note Provider Name and Address Organization Details Recorded Time 05/25/2025 text/html ROS as noted in the [...] She wears bilateral amplification dispensed by an bushel worker at the [facility]. She transferred audiology care to [facility], and hearing aids were recently adjusted. She has been using hearing aids for the past 30 years. Favian Martinez, DO [address] [facility],[address] [address], [place], [address], [facility] - [facility] 05/25/2025 11:17:56 OBGyn Episode No OBEpisode recorded.
== END 2025-07-26 15:24 | disposition home or self-care (01) ==
PROVIDERS: Visit Provider Nurse Practitioner Family
DX: R42 Dizziness and giddiness (principal)

== ENCOUNTER 2025-08-08 09:39 | Outpatient (REF) | payer OTHER, SELFPAY ==
--- OUTSIDE RECORDS SUMMARY | 2025-08-08 11:13 | XMS_ITS | Clinical Summary ---
Author Organization [facility] Address [address] [place] [address] Care Team Providers Care Cyber Systems Engineer Name Role Phone Joey Miller MD Primary Care Provider [phone] Surgical History Surgery Date Site/Laterality Comments OTHER [...] on file Sexual Orientation Not on file Last Filed Vital Signs Vital Sign Reading [...] Depression Screening 08/23/2024 COVID-19 Vaccine ( - 2024-2 6 season) 2025 Influenza Vaccine [...] age to complete this topic Care Teams Cyber Systems Engineer Relationship Specialty Start Date End Date Joey Miller MD [address] [place] [address] PCP - General Internal Medicine 01/13/21
== END 2025-08-08 09:40 | disposition home or self-care (01) ==
LOC: HO.HAP 09:39
PROVIDERS: Visit Provider Internal Medicine
DX: H90.6 Mixed conductive and sensorineural hearing loss, bilateral (principal)
CPT/HCPCS: 92593; V5266